=== PATIENT | female | born 1990 | race Hispanic/Latino ===

== ENCOUNTER 2016-12-13 14:49 | Inpatient (IN) | payer MEDICAID, OTHER ==
[2016-12-13] MEDS ORDERED: ePHEDrine SULFATE IV PRN ×2 (15:09→18:07)
[2016-12-13] MEDS ORDERED: LACTATED RINGERS 1,000 ML ONE (15:12)
[2016-12-13 15:26] LABS: Basophils % (Auto) 0.4 % (0.0-1.8); Hematocrit 35.6 % (30.3-42.9); Hemoglobin 12.3 gm/dl (10.1-14.3); Mean Corpuscular HGB Conc 34 % (30-34); Mean Corpuscular Hemoglobin 33 pg (28-32); Mean Corpuscular Volume 96 fl (79-97); Platelet Count 146 K/mm3 (140-440); Red Blood Count 3.73 M/mm3 (3.65-5.03); Red Cell Distribution Width 12.2 % (13.2-15.2); White Blood Count 9.6 K/mm3 (4.5-11.0)
[2016-12-13 15:42] LABS: Alanine Aminotransferase 10 units/L (7-56); Albumin 3.3 g/dL (3.9-5); Albumin/Globulin Ratio 1.2 %; Anion Gap 18 mmol/L; Blood Urea Nitrogen 9 mg/dL (7-17); Calcium 8.1 mg/dL (8.4-10.2); Carbon Dioxide 19 mmol/L (22-30); Chloride 105.5 mmol/L (98-107); Glucose 81 mg/dL (65-100); Potassium 4.3 mmol/L (3.6-5.0); Sodium 138 mmol/L (137-145)
[2016-12-13 15:59] LABS: Alkaline Phosphatase 2213 units/L (35-129)
[2016-12-13] MEDS ORDERED: PITOCin/NS 20 UNIT/1000ML DRIP 20 UNITS/1,000 ML BAG IV SCH (16:00)
[2016-12-13] MEDS ORDERED: XYLOCAINE 2% INFILTRATI ONE (16:00)
[2016-12-13] MEDS ORDERED: LACTATED RINGERS 1,000 ML IV SCH (16:00)
[2016-12-13] MEDS ORDERED: PFIZERPEN 5 MIL.UNITS in NACL 0.9% 50 ML IV ONE (16:00)
--- NOTE | 2016-12-13 16:01 | History and Physical Report ---
History of Present Illness Date of examination: 12/13/16 Date of admission: 12/13/16 14:49 Chief complaint: Leaking of clear fluid from vagina since 2:00 PM today; contractions History of present illness: 26 year old presents to L&D at 34 weeks, 6 days gestation. Patient reports she began leaking clear watery fluid from vagina since approximately 2: 00 PM today. Patient denies vaginal bleeding. She reports regular contractions every 3-5 minutes for the past few hours. [facility] History of + HSV 2 serology; on Valtrex for suppression; patient denies outbreaks or prodromal symptoms. Past History Past Medical History: other (Obesity, history of preeclampsia with a previous ) Past Surgical History: no surgical history [facility] History: abnormal PAP smear Social history: other (Previous smoker and marijuana user (none for past 5 months); currently in [facility]) - Obstetrical History Expected Date of Delivery: 01/18/17 Actual Gestation: 34 Week(s) 6 Day(s) : 3 Para: 2 Medications and Allergies Allergies Allergy/AdvReac Type Severity Reaction Status Date / Time Sulfa (Sulfonamide Allergy Mild Rash Verified 01/23/13 22:28 Antibiotics) Home Medications Medication Instructions Recorded Confirmed Last Taken Type Cephalexin [Keflex] 500 mg PO QID #28 capsule 03/03/13 04/10/15 Unknown Rx Gentamicin 0.3% Ophth Soln 2 drops OP QID #1 bottle 03/03/13 04/10/15 Unknown Rx Nitrofurantoin [place]/M-Cryst 100 mg PO Q12HR #20 capsule 05/13/14 04/10/15 Unknown Rx [Macrobid] ALBUTEROL Inhaler [ProAir HFA 2 puff IH QID PRN #1 inhalation 04/02/15 04/10/15 Unknown Rx Inhaler] Lidocain2.5%/Prilocai2.5% [Emla] 5 gm TP ONCE #1 tube 04/11/15 Unknown Rx Active Meds: Active Medications Lactated Ringer's (Lactated Ringers) 1,000 mls @ 125 mls/hr IV DIRECT BLANCA Oxytocin/Sodium Chloride (Pitocin/Ns 20 Unit/1000ml Drip) 20 units in 1,000 mls @ 125 mls/hr IV DIRECT BLANCA Penicillin G Potassium 5 mil. (units/ Sodium Chloride) 50 mls @ 100 mls/hr IV ONCE ONE PRN Reason: Protocol Stop: 12/13/16 16:29 Lidocaine (Xylocaine 2%) 20 ml INFILTRATI ONCE ONE Stop: 12/13/16 16:01 Penicillin G Potassium (Pfizerpen) 2.5 mil.units IV Q4H BLANCA PRN Reason: Protocol Review of Systems Cardiovascular: no edema, no lightheadedness, no shortness of breath Gastrointestinal: no abdominal pain, no nausea, no vomiting Genitourinary: no dysuria Neurological: no headaches, no loss of vision Psychiatric: sadness/tearfullness - Vital Signs Vital signs: Vital Signs Pulse BP 67 142/83 12/13/16 14:50 12/13/16 14:50 Temp Pulse Resp BP Pulse Ox 67 142/83 12/13/16 14:50 12/13/16 14:50 - Physical Exam Breasts: Positive: deferred Cardiovascular: Regular rate Lungs: Positive: Clear to auscultation Abdomen: Positive: normal appearance, soft Genitourinary (Female): Positive: normal external genitalia (No lesions noted on careful examination under bright light). Negative: perineal/vulvar lesions Vagina: Positive: other (+ pooling of amniotic fluid noted; cervix 4/90/-1) Results Result Diagrams: 12/13/16 15:14 12/13/16 15:14 Abnormal lab results 12/13/16 12/13/16 Range/Units 15:14 15:14 MCH 33 H (28-32) pg RDW 12.2 L (13.2-15.2) % Seg Neutrophils % 79.3 H (40.0-70.0) % Carbon Dioxide 19 L (22-30) mmol/L Creatinine 0.5 L (0.7-1.2) mg/dL Calcium 8.1 L (8.4-10.2) mg/dL Total Protein 6.0 L (6.3-8.2) g/dL Albumin 3.3 L (3.9-5) g/dL All other labs normal. Fern test positive; nitrazine test positive. GBS test sent. Assessment and Plan A: at 34 weeks, 6 days gestation with spontaneous rupture of membranes. No records available (possible GDM; NICU notified today by CNM). GBS unknown status. Labor. HSV 2 serology positive with no history of outbreaks and no current outbreak or prodromal symptoms and patient is on Valtrex suppression. P: Admit. Continuous EFM. Epidural if desires. GBS prophylaxis. Expect . NICU and Dr. Escalante to be present for delivery.
[2016-12-13] MEDS ORDERED: ePHEDrine SULFATE ONE (17:30)
[2016-12-13] MEDS ORDERED: VALTREX PO ONE (17:30)
--- NOTE | 2016-12-13 17:33 | Event Note ---
Date: 12/13/16 Labs show markedly elevated alk phos. Patient denies any history of liver disease. She reports she has been taking Tylenol 4 regular strenth tabs per day for an unknown duration. Patient denies pruritis, abdominal pain, nausea, or any other symptoms. She recently completed a course of Augmentin for a dental abscess. Otherwise is only taking vitamins, Colace, and Valtrex. Will consult with regarding this lab result; additional lab orders have been placed.
[2016-12-13] MEDS ORDERED: fentaNYL-BUPIV 2 MCG/ML-0.125% 200 MCG/100 ML BAG EPIDURAL ONE (17:39)
[2016-12-13] MEDS ORDERED: NARCAN 2 MG/2 ML IV PRN (18:07)
--- NOTE | 2016-12-13 18:09 | Anesthesia Consultation ---
Anesthesia Consult and Med Hx Date of service: 12/13/16 - Airway Anesthetic Teeth Evaluation: Good ROM Head & Neck: Adequate Mental/Hyoid Distance: Adequate Mallampati Class: Class II Intubation Access Assessment: Probably Good - Pulmonary Exam CTA: Yes - Cardiac Exam Cardiac Exam: RRR - Pre-Operative Health Status ASA Pre-Surgery Classification: ASA2 Proposed Anesthetic Plan: Epidural, Spinal - Pulmonary Hx Smoking: Yes (quit 5 months ago) Hx Asthma: No COPD: No Hx Pneumonia: No - Cardiovascular System Hx Hypertension: No - Central Nervous System Hx Seizures: No Hx Psychiatric Problems: No - Endocrine Hx Renal Disease: No Hx End Stage Renal Disease: No Hx Hypothyroidism: No Hx Hyperthyroidism: No - Hematic Hx Anemia: No Hx Sickle Cell Disease: No - Other Systems Hx Alcohol Use: No - Additional Comments Anesthesia Medical History Comments: +IUP AT 34.6 WKS
[2016-12-13 18:12] LABS: Hemoglobin 12.3 gm/dl (10.1-14.3); Mean Corpuscular HGB Conc 34 % (30-34); Mean Corpuscular Hemoglobin 33 pg (28-32); Mean Corpuscular Volume 95 fl (79-97); Platelet Count 142 K/mm3 (140-440); Red Blood Count 3.78 M/mm3 (3.65-5.03); White Blood Count 12.9 K/mm3 (4.5-11.0)
[2016-12-13] MEDS ORDERED: fentaNYL-BUPIV 2 MCG/ML-0.125% 200 MCG/100 ML BAG EPIDURAL SCH (19:00)
[2016-12-13] MEDS ORDERED: PFIZERPEN IV SCH (20:00)
[2016-12-13] MEDS ORDERED: PFIZERPEN 2.5 MIL.UNITS in NACL 0.9% 50 ML IV SCH (20:00)
--- NOTE | 2016-12-13 22:22 | Procedure Note ---
OB Delivery Note - Vaginal Delivery position: OA Intrapartum events: labor-<37 weeks Delivery induction: none Delivery monitor: external FHT Route of delivery: Delivery placenta: spontaneous Delivery cord: 3 umbilical vessels Episiotomy: none Delivery laceration: none Anesthesia: epidural Delivery comments: Spontaneous vaginal delivery of liveborn female infant on 12/13/16 at 18:38 weighing 4 lbs. 7 oz. with apgars of 8/9. Epidural anesthesia. Intact perineum. 3 vessel umbilical cord. NICU team present for delivery. Spontaneous cry and respirations. Spontaneous delivery of intact placenta and membranes by acrney mechanism. EBL 300 mL. Mother and baby stable.
[2016-12-13] MEDS: MOTRIN PO PRN (22:32)
--- NOTE | 2016-12-13 23:14 | Event Note ---
Hepatitis screen negative. Spoke with patient about elevated alkaline phosphatase level. Advised patient that we will repeat this test in AM to confirm, especially since she is now delivered. Advised patient that if test result is still high, she will need to see MD and that she will need follow up to determine cause of the elevation. I consulted with MD regarding elevated alkaline phosphatase earlier today. Patient voiced understanding of the above instructions.
[2016-12-13 23:56] LABS: Urine Drugs of Abuse Note Disclamer
[2016-12-14] MEDS: MOTRIN PO PRN ×2 (05:42→15:34)
[2016-12-14 06:55] LABS: Hematocrit 26.7 % (30.3-42.9); Hemoglobin 8.7 gm/dl (10.1-14.3); Mean Corpuscular HGB Conc 33 % (30-34); Mean Corpuscular Hemoglobin 29 pg (28-32); Mean Corpuscular Volume 88 fl (79-97); Platelet Count 259 K/mm3 (140-440); Red Blood Count 3.02 M/mm3 (3.65-5.03); Red Cell Distribution Width 14.4 % (13.2-15.2); White Blood Count 12.9 K/mm3 (4.5-11.0)
[2016-12-14] MEDS ORDERED: COLACE PO SCH (10:00)
[2016-12-14] MEDS ORDERED: FEOSOL PO SCH (10:00)
--- NOTE | 2016-12-14 10:53 | Progress Note ---
Subjective Date of service: 12/14/16 Interval history: 1st day after normal vaginal delivery Patient is in the bed, comfortable. Pain is well controlled with pain meds. Ambulated well, no residual neurological deficit. No anesthesia complications Objective - Constitutional Vitals: Vital Signs - 12hr 12/14/16 12/14/16 12/14/16 00:00 04:00 09:02 Temperature 98.6 F 98.6 F 98.8 F Pulse Rate 72 72 88 Respiratory 16 16 16 Rate Blood Pressure 102/81 132/52 109/69 - Labs CBC & Chem 7: 12/14/16 Unknown 12/13/16 15:14 Labs: Abnormal lab results 12/13/16 12/13/16 12/13/16 Range/Units 15:14 15:14 17:34 WBC 12.9 H (4.5-11.0) K/mm3 RBC (3.65-5.03) M/mm3 Hgb (10.1-14.3) gm/dl Hct (30.3-42.9) % MCH 33 H 33 H (28-32) pg RDW 12.2 L 12.0 L (13.2-15.2) % Seg Neutrophils % 79.3 H (40.0-70.0) % Carbon Dioxide 19 L (22-30) mmol/L Creatinine 0.5 L (0.7-1.2) mg/dL Calcium 8.1 L (8.4-10.2) mg/dL Alkaline Phosphatase 2213 H (35-129) units/L Total Protein 6.0 L (6.3-8.2) g/dL Albumin 3.3 L (3.9-5) g/dL 12/14/16 12/14/16 Range/Units Unknown Unknown WBC 12.9 H (4.5-11.0) K/mm3 RBC 3.02 L (3.65-5.03) M/mm3 Hgb 8.7 L D (10.1-14.3) gm/dl Hct 26.7 L D (30.3-42.9) % MCH (28-32) pg RDW (13.2-15.2) % Seg Neutrophils % (40.0-70.0) % Carbon Dioxide (22-30) mmol/L Creatinine (0.7-1.2) mg/dL Calcium (8.4-10.2) mg/dL Alkaline Phosphatase 1522 H (35-129) units/L Total Protein (6.3-8.2) g/dL Albumin (3.9-5) g/dL
--- NOTE | 2016-12-14 11:31 | Progress Note ---
Assessment and Plan A: PP day #1 Asymptomatic Anemia Elevated ALK Saroj Chandra. Assisted Inmate P:Follow Routine PP Orders Infed 100mg IM x 1 dose Continue PO FESO4 ALK decreased from 2213 to 1522 D/C to Saroj Pending Sale To [facility] in the AM Subjective - Subjective Date of service: 12/14/16 Patient reports: appetite normal, voiding normally, pain well controlled, flatus , ambulating normally [place]: in NICU, bottle feeding Objective - Vital Signs Latest vital signs: Vital Signs Temp Pulse Resp BP Pulse Ox 12/14/16 09:02 98.8 F 88 16 109/69 12/14/16 04:00 98.6 F 72 16 132/52 12/14/16 00:00 98.6 F 72 16 102/81 12/13/16 22:32 20 12/13/16 20:25 98.6 F 74 16 129/87 12/13/16 19:52 96.7 F L 66 12 121/74 99 12/13/16 19:50 67 121/74 12/13/16 19:40 59 L 115/73 12/13/16 19:35 61 106/63 12/13/16 19:20 65 113/63 12/13/16 19:05 84 120/77 12/13/16 18:50 88 125/82 12/13/16 18:35 96 H 134/85 12/13/16 18:34 88 80 L 12/13/16 18:33 68 122/75 12/13/16 18:31 76 133/71 12/13/16 18:29 71 100 12/13/16 18:28 70 129/85 12/13/16 18:26 66 123/82 12/13/16 18:24 66 122/81 98 12/13/16 18:23 69 119/80 12/13/16 18:21 67 124/77 12/13/16 18:19 73 98 12/13/16 18:18 69 127/85 12/13/16 18:16 77 125/80 12/13/16 18:14 85 124/83 98 12/13/16 18:12 65 118/79 12/13/16 18:10 70 117/80 12/13/16 18:09 67 98 12/13/16 18:08 71 120/77 12/13/16 18:06 71 118/74 12/13/16 18:04 78 121/76 98 12/13/16 18:03 65 121/78 12/13/16 17:59 59 L 125/74 98 12/13/16 17:54 57 L 99 12/13/16 17:53 80 143/81 12/13/16 17:49 62 99 12/13/16 17:44 64 100 12/13/16 16:26 62 132/85 12/13/16 16:25 98.3 F 67 18 132/85 12/13/16 14:50 67 142/83 Intake and Output 12/13/16 12/14/16 12/14/16 22:59 06:59 14:59 Intake Total 650 300 Output Total 600 Balance 50 300 Intake: IV 100 PITOCin/NS 20 UNIT/1000ML 100 DRIP 20 units In 1,000 ml @ 125 mls/hr IV DIRECT BLANCA Rx#:[id number] Oral 250 Intake, Free Water 300 300 Output: Urine 600 Void 600 Other: Total, Intake Amount 250 Total, Output Amount 600 # Voids Void 1 Weight 70.76 kg Estimated Blood Loss 300 - Exam Breasts: Present: normal Cardiovascular: Present: Regular rate Lungs: Present: Clear to auscultation, Normal air movement Abdomen: Present: normal appearance, soft, normal bowel sounds Uterus: Present: normal, firm, fundal height below umbilicus Extremities: Present: normal - Labs Labs: Abnormal lab results 12/13/16 12/13/16 12/13/16 Range/Units 15:14 15:14 17:34 WBC 12.9 H (4.5-11.0) K/mm3 RBC (3.65-5.03) M/mm3 Hgb (10.1-14.3) gm/dl Hct (30.3-42.9) % MCH 33 H 33 H (28-32) pg RDW 12.2 L 12.0 L (13.2-15.2) % Seg Neutrophils % 79.3 H (40.0-70.0) % Carbon Dioxide 19 L (22-30) mmol/L Creatinine 0.5 L (0.7-1.2) mg/dL Calcium 8.1 L (8.4-10.2) mg/dL Alkaline Phosphatase 2213 H (35-129) units/L Total Protein 6.0 L (6.3-8.2) g/dL Albumin 3.3 L (3.9-5) g/dL 12/14/16 12/14/16 Range/Units Unknown Unknown WBC 12.9 H (4.5-11.0) K/mm3 RBC 3.02 L (3.65-5.03) M/mm3 Hgb 8.7 L D (10.1-14.3) gm/dl Hct 26.7 L D (30.3-42.9) % MCH (28-32) pg RDW (13.2-15.2) % Seg Neutrophils % (40.0-70.0) % Carbon Dioxide (22-30) mmol/L Creatinine (0.7-1.2) mg/dL Calcium (8.4-10.2) mg/dL Alkaline Phosphatase 1522 H (35-129) units/L Total Protein (6.3-8.2) g/dL Albumin (3.9-5) g/dL
--- NOTE | 2016-12-14 11:33 | Discharge Summary ---
Providers - Providers Date of Admission: 12/13/16 14:49 Date of discharge: 12/15/16 Attending physician: SARAH HUGGINS MD Primary care physician: [facility] Hospitalization Reason for admission: rupture of membranes Delivery: Episiotomy: none Laceration: none Other procedures: none complications: none Discharge diagnosis: delivery Condition at discharge: Good Disposition: [id number] ANOTHER TYPE HLTHCARE Plan - Provider Discharge Summary Additional instructions: [] Smoking cessation referral if applicable(refer to patient education folder for contact #) [] Refer to [facility] Booklet Call your doctor immediately for: * Fever > 100.5 * Heavy vaginal bleeding ( >1 pad per hour) * Severe persistent headache * Shortness of breath * Reddened, hot, painful area to leg or breast * Drainage or odor from incision. * Keep incision clean and dry at all times and follow doctor's instructions regarding bathing/showering - Follow up plan Follow up: PRIMARY CAREMD [Primary Care Provider] - 7 Days
[2016-12-14] MEDS ORDERED: INFED IM ONE (12:30)
[2016-12-14 17:23] VITALS: BP 108/54
== END 2016-12-14 17:15 | disposition short-term general hospital (02) | DRG 775 ==
LOC: EEVIPCON 14:49 → LD 14:49 → OB 20:53
PROVIDERS: ADMIT Obstetrics & Gynecology; ATTEND Obstetrics & Gynecology
PROC: 10E0XZZ Delivery of Products of Conception, External Approach (ICD-10-PCS; principal; 2016-12-13)
PROC: 3E0S3CZ (ICD-10-PCS; 2016-12-13)
PROC: 00HU33Z Insertion of Infusion Device into Spinal Canal, Percutaneous Approach (ICD-10-PCS; 2016-12-13)
DX: O60.14X0 Preterm labor third trimester with preterm delivery third trimester, not applicable or unspecified (principal); O99.214 Obesity complicating childbirth; E66.9 Obesity, unspecified; O90.81 Anemia of the puerperium; D64.9 Anemia, unspecified; Z3A.34 34 weeks gestation of pregnancy; Z37.0 Single live birth; Z88.2 Allergy status to sulfonamides
CPT/HCPCS: 36415; 80053; 80307; 82962; 84075; 85014; 85018; 85025; 85027; 86592; 86706; 86803; 86850; 86900; 86901; 87116; J1750; J2540; J2590; J7120

== ENCOUNTER 2018-06-30 18:11 | Inpatient (IN) | payer MEDICAID ==
[2018-06-30] MEDS ORDERED: LACTATED RINGERS 1,000 ML ONE (18:42)
[2018-06-30] MEDS ORDERED: NACL 0.9% IR ONE (18:45)
[2018-06-30] MEDS ORDERED: WATER FOR IRRIG STERILE IR ONE (18:45)
[2018-06-30] MEDS ORDERED: PITOCin/NS 20 UNIT/1000ML DRIP 20,000 MILLIUNITS/1,000 ML BAG IV ONE ×2 (18:53→20:52)
[2018-06-30] MEDS ORDERED: LACTATED RINGERS 1,000 ML IV SCH (19:00)
[2018-06-30] MEDS ORDERED: NACL 0.9% 500 ML 500 ML IV NR (19:01)
[2018-06-30] MEDS ORDERED: ANCEF ONE (19:18)
[2018-06-30] MEDS ORDERED: DIPRIVAN 10 MG/ML IV ONE (19:18)
[2018-06-30] MEDS ORDERED: ZOFRAN ONE (19:18)
[2018-06-30] MEDS ORDERED: QUELICIN ONE (19:18)
[2018-06-30] MEDS ORDERED: DILAUDID ONE (19:19)
[2018-06-30] MEDS ORDERED: ZEMURON IV ONE (19:20)
[2018-06-30] MEDS ORDERED: BLOXIVERZ ONE (19:28)
[2018-06-30] MEDS ORDERED: ROBINUL ONE (19:28)
[2018-06-30 19:31] LABS: Basophils % (Auto) 0.8 % (0.0-1.8); Eosinophils % (Auto) 1.5 % (0.0-4.3); Hematocrit 35.1 % (30.3-42.9); Hemoglobin 12.1 gm/dl (10.1-14.3); Lymphocytes # (Auto) 0.8 K/mm3 (1.2-5.4); Lymphocytes % (Auto) 25.8 % (13.4-35.0); Mean Corpuscular HGB Conc 35 % (30-34); Mean Corpuscular Volume 97 fl (79-97); Monocytes % (Auto) 1.5 % (0.0-7.3); Platelet Count 197 K/mm3 (140-440); Red Blood Count 3.63 M/mm3 (3.65-5.03); Red Cell Distribution Width 12.9 % (13.2-15.2)
[2018-06-30] MEDS ORDERED: LACTATED RINGERS 2,000 ML ONE (19:38)
[2018-06-30] MEDS ORDERED: SUBLIMAZE ONE (19:40)
--- NOTE | 2018-06-30 20:01 | History and Physical Report ---
History of Present Illness Date of examination: 06/30/18 Date of admission: 06/30/18 18:41 Chief complaint: ROM, vaginal bleeding, pain History of present illness: This is a 28 yo female who presented by EMS for ROM. Received called from Charlotte AREVALO @625p stating patient with heavy vaginal bleeding. Arrived to triage 6 at 638p, multiple clots in bed, no fht's on strip, US machine at bedside, scan by me revealed FHT's extremely slow, breech, emergency C/S ordered. While having IV started patient gave history of walking, then she sat down and coughed, she thought she urinated on herself, her called EMS, she started bleeding once arrive to triage. EDC Confirmation: 09/04/2018 Gestational Age: 20 4/7 weeks Past History : 4 Term Births: 2 Premature Births: 1 Living Children: 3 Para: 3 Mult. Births: 0 Prev : 0 Prev. attempt? 0 Aborta: 0 Elect. Ab: 0 Spont. Ab: 0 Ectopics: 0 # 1 Delivery date: 11/26/2012 Weeks Gestation: 38+4 Delivery type: Vaginal Anesthesia type: epidural Delivery location: [facility] Sex: female weight: 5.19 Comments: meconium; Pre-E at 37 wga # 2 Delivery date: 04/10/2015 Weeks Gestation: 37+6 Delivery type: Vaginal Hours of labor: 1 Anesthesia type: none Delivery location: [facility] Infant Sex: male weight: 5.63 Comments: intrauterine growth restriction, pre-eclampsia/eclampsia Nurse delivery Past Medical History: Reviewed history from 07/08/2012 and no changes required: Negative Past Medical History Past Surgical History: Reviewed history from 10/12/2014 and no changes required: negative Past Medical History Abnormal PAP: negative VARSHA Exposure: negative Infertility: negative Uterine Anomaly: negative Uterine Surgery (not C/S): negative Other Gynecologic Problems: negative Social Hx: Patient is single +smoker no e/d Infection History Hx of STD: none HIV Risk Eval: low risk Personal hx. of genital herpes: no Partner hx. of genital herpes: yes Varicella/Chicken Pox Status: Immunized TB Risk: no Infection History Comments: Hx of HSV 2. Genetic History Congenital Heart Defect: Mom: no Dad: no [place] Disease: Mom: no Dad: no Thalassemia Mom: no Dad: no Neural Tube Defect Mom: no Dad: no Down's Syndrome Mom: no Dad: no Noah-Sachs Mom: no Dad: no Sickle Cell Disease/Trait Mom: no Dad: no Hemophilia Mom: no Dad: no Muscular Dystrophy Mom: no Dad: no Cystic Fibrosis Mom: no Dad: no [place] Chorea Mom: no Dad: no Mental Retardation Mom: no Dad: no Fragile X Mom: no Dad: no Other Genetic/Chromosomal Disorder Mom: no Dad: no Child w/other defect Mom: no Dad: yes Comments: "FOCs sister's children with disorders" Enviromental Exposures Xray Exposure: no Medication, drug, or alcohol use since LMP: no Chemical/Other Exposure: no Exposure to Cat Liter: no Hx of Parvovirus (Fifth Disease): no Occupational Exposure to Children: none Active Medications (reviewed today): PNV () Current Allergies (reviewed today): * SULFA (Critical) Past History - Obstetrical History Expected Date of Delivery: 09/04/18 Actual Gestation: 30 Week(s) 4 Day(s) : 3 Medications and Allergies Allergies Allergy/AdvReac Type Severity Reaction Status Date / Time Sulfa (Sulfonamide Allergy Mild Rash Verified 01/23/13 22:28 Antibiotics) Home Medications Medication Instructions Recorded Confirmed Last Taken Type Cephalexin [Keflex] 500 mg PO QID #28 capsule 03/03/13 12/13/16 Unknown Rx Gentamicin 0.3% Ophth Soln 2 drops OP QID #1 bottle 03/03/13 12/13/16 Unknown Rx Nitrofurantoin [place]/M-Cryst 100 mg PO Q12HR #20 capsule 05/13/14 12/13/16 Unknown Rx [Macrobid] ALBUTEROL Inhaler (OR & NICU) 2 puff IH QID PRN #1 inhalation 04/02/15 12/13/16 Unknown Rx [ProAir HFA Inhaler] Lidocain2.5%/Prilocai2.5% [Emla] 5 gm TP ONCE #1 tube 04/11/15 12/13/16 Unknown Rx 21/Iron Fu/Folic Acid 1 each PO DAILY #30 tablet 04/06/18 Unknown Rx [ Complete Caplet] Active Meds: Active Medications Lactated Ringer's (Lactated Ringers) 1,000 mls @ 125 mls/hr IV DIRECT BLANCA Sodium Chloride (Nacl 0.9% 500 Ml) 500 mls @ 0 mls/hr IV ONCE NR Stop: 07/01/18 05:00 - Vital Signs Vital signs: Vital Signs Pulse BP 85 125/78 06/30/18 18:26 06/30/18 18:26 Temp Pulse Resp BP Pulse Ox 85 125/78 06/30/18 18:26 06/30/18 18:26 - Physical Exam Lungs: Positive: Normal air movement Genitourinary (Female): Positive: normal external genitalia, normal perenium, other (large clot at introitus, pad with large amount of blood and clots. ) - Obstetrical FHR: category 3 Results Result Diagrams: 06/30/18 18:40 Abnormal lab results 06/30/18 06/30/18 Range/Units 18:40 18:40 WBC 3.2 L (4.5-11.0) K/mm3 RBC 3.63 L (3.65-5.03) M/mm3 MCH 33 H (28-32) pg MCHC 35 H (30-34) % RDW 12.9 L (13.2-15.2) % Lymph # 0.8 L (1.2-5.4) K/mm3 Seg Neutrophils % 70.4 H (40.0-70.0) % Crossmatch See Detail All other labs normal. Assessment and Plan - Patient Problems (1) 30 weeks gestation of Current Visit: Yes Status: Acute (2) Placental abruption Current Visit: Yes Status: Acute Qualifiers: Trimester: third trimester Qualified Code(s): O45.93 - Premature separation of placenta, unspecified, third trimester (3) Breech presentation Current Visit: Yes Status: Acute Qualifiers: Fetus number: single or unspecified fetus Qualified Code(s): O32.1XX0 - Maternal care for breech presentation, not applicable or unspecified
[2018-06-30] MEDS ORDERED: PHENERGAN PO PRN ×2 (20:09→20:10)
[2018-06-30] MEDS ORDERED: NARCAN 0.4 MG/1 ML IV PRN ×5 (20:09→21:57)
[2018-06-30] MEDS ORDERED: ZOFRAN IV PRN ×2 (20:09→20:10)
[2018-06-30] MEDS ORDERED: PHENERGAN PR PRN ×3 (20:09→21:57)
--- NOTE | 2018-06-30 20:09 | Anesthesia Day of Surgery ---
Anesthesia Day of Surgery - Day of Surgery Patient Examined: Yes Patient H&P Reviewed: Yes Patient is NPO: Yes Beta Blockers: No Cardiac Clearance: No Pulmonary Clearance: No Jovon's Test: N/A
[2018-06-30] MEDS ORDERED: DILAUDID IV PRN (20:10)
--- NOTE | 2018-06-30 20:15 | Anesthesia Consultation ---
Anesthesia Consult and Med Hx - Airway Anesthetic Teeth Evaluation: Poor, Chipped, Caps ROM Head & Neck: Adequate Mental/Hyoid Distance: Adequate Mallampati Class: Class II Intubation Access Assessment: Probably Good - Pulmonary Exam CTA: Yes - Pre-Operative Health Status ASA Pre-Surgery Classification: ASA4, Emergency Proposed Anesthetic Plan: General - Pulmonary Hx Smoking: Yes (quit 5 months ago) Hx Asthma: No Hx Respiratory Symptoms: No SOB: No COPD: No Home Oxygen Therapy: No Hx Pneumonia: No Hx Sleep Apnea: No - Cardiovascular System Hx Hypertension: No Hx Coronary Artery Disease: No Hx Heart Attack/AMI: No Hx Angina: No Hx Percutaneous Transluminal Coronary Angioplasty (PTCA): No Hx Cardia Arrhythmia: No Hx Pacemaker: No Hx Internal Defibrillator: No Hx Valvular Heart Disease: No Hx Heart Murmur: No Hx Peripheral Vascular Disease: No - Central Nervous System Hx Neuromuscular Disorder: No Hx Seizures: No CVA: No Hx Back Pain: No Hx Psychiatric Problems: No - Gastrointestinal Hx Ulcer: No Hx Gastroesophageal Reflux Disease: No - Endocrine Hx Renal Disease: No Hx End Stage Renal Disease: No Hx Cirrhosis: No Hx Liver Disease: No Hx Insulin Dependent Diabetes: No Hx Non-Insulin Dependent Diabetes: No Hx Thyroid Disease: No Hx Hypothyroidism: No Hx Hyperthyroidism: No - Hematic Hx Anemia: No Hx Sickle Cell Disease: No - Other Systems Hx Alcohol Use: No Hx Substance Use: No Hx Cancer: No Hx Obesity: No
--- NOTE | 2018-06-30 20:16 | Post Anesthesia Evaluation ---
- Post Anesthesia Evaluation Patient Participated: Yes Airway Patent: Yes Stable Respiratory Function: Yes Nausea/Vomiting: No Temp > 96.8F: Yes Pain Manageable: Yes Adequeate Hydration: Yes Anesthesia Complications: No Block Receding Appropriately: Not Applicable Patient on Ventilator: No
[2018-06-30] MEDS ORDERED: SODIUM CHLORIDE FLUSH SYRINGE 10 ML IV NR ×4 (21:00→22:00)
[2018-06-30] MEDS ORDERED: BENADRYL IV PRN (21:42)
[2018-06-30] MEDS ORDERED: TUCKS PAD TP PRN ×2 (21:42→21:57)
[2018-06-30] MEDS ORDERED: REGLAN IV PRN (21:42)
[2018-06-30] MEDS ORDERED: BENADRYL PO PRN (21:42)
[2018-06-30] MEDS ORDERED: REGLAN PO PRN (21:42)
[2018-06-30] MEDS ORDERED: LANSINOH TP PRN ×2 (21:42→21:57)
[2018-06-30] MEDS ORDERED: MORPHINE IV PRN (21:57)
[2018-06-30] MEDS ORDERED: MILK OF MAGNESIA PO PRN (21:57)
[2018-06-30] MEDS ORDERED: MYLICON PO PRN (21:57)
[2018-06-30] MEDS ORDERED: PITOCin/NS 20 UNIT/1000ML DRIP 20 UNITS/1,000 ML BAG IV SCH (22:00)
[2018-06-30] MEDS ORDERED: DILAUDID PCA 6MG/30ML IV SCH (22:00)
[2018-06-30 22:33] LABS: INR 1.09 (0.87-1.13)
[2018-06-30 22:36] LABS: Alanine Aminotransferase 8 units/L (7-56); Uric Acid 4.4 mg/dL (3.5-7.6)
--- NOTE | 2018-06-30 22:51 | Operative Report ---
Operative Report Operative Report: Date: 06/30/2018 Preoperative diagnosis: 1. Intrauterine at 30 weeks and 4 days 2. Severe vaginal bleeding 3. Premature rupture of membranes 4. Breech presentation Postoperative diagnosis: 1. Intrauterine at 30 weeks and 4 days 2. Severe vaginal bleeding 3. Premature rupture of membranes 4. Breech presentation Procedure: Low uterine transverse incision for delivery with vertical midline extension to the fundus of the uterus. Parient will require repeat for subsequent pregnancies Surgeon: Destiny Mathur MD Gin Clerk: Tatum Castro Anesthesia: Gen. endotracheal anesthesia Anesthesiologist: [] Estimated blood loss: 400 mL. She had approximately 500 mL's of blood and clots noted on the Chux pad and from the vagina. Urine out: [] mL Findings: Live born female . Weight 3 lbs. 1 oz. Apgars 7 at 1 minute and 8 at 5 minutes. Uterus grossly normal, tubes grossly normal left fallopian tube, there was no evidence of the distal ampullary or distal fimbriated end of the right fallopian tube however there is an approximately 2 cm mass involving the isthmic portion of the tube ~3cm from the cornua, ovaries grossly normal. Procedure: Patient was taken to the OR emergently and placed on the OR table in supine position. Gen. anesthesia was induced. Due to the emergent situation she had a quick Betadine scrub of the abdomen and she was prepped and draped in the usual sterile fashion. Abbreviated Timeout was performed by me identifying the patient by name and procedure. A Pfannenstiel incision was made and extended to the fascia which was incised and extended in the lateral directions. The overlying fascia was sharply dissected away from the underlying rectus muscles in the superior and inferior directions. The midline was entered bluntly. The vesicouterine fold was incised and with blunt dissection the bladder flap was created. A transverse incision was made in the lower uterine segment and extended in superiolateral direction with finger fractionation. Upon immediate entry into the uterus dark blood and placenta was noted. No fluid was noted. The was delivered from complete breech pos ition. There was significant difficulty delivering the right arm that was positioned above and the head was rotated to right. In order to better access the fundus of the uterus the skin incision along the fascia was extended laterally. Then the right rectus muscle was also cut edge. Access to the uterus. The decision was made to extend extending the incision vertical midline direction to better access and deliver the arm in the infant's head. Cord was doubly clamped and cut. The infant was given to /resuscitation team present. The placenta was manually extracted. Order given to send the placenta to pathology. The uterus was then exteriorized and cleared of any further products of conception or placental tissue. The incisions were reapproximated using 0 Vicryl in a running interlocking stitch. A vertical incision was reinforced using 0 Vicryl in a running interlocking stitch thereby reapproximating the serosal layer. Once hemostasis was noted, the uterus was allowed back into the pelvic cavity. The pelvis was irrigated with warm normal saline. Again hemostasis was noted . Surgicel applied for further hemostasis. Interceed was then placed to prevent adhesions. Then attention was turned to the rectus muscles. The rectus muscle incision was reapproximated using 0 Vicryl in a [id number] fashion. The rectus muscles reapproximated using 0 Vicryl in a simple interrupted stitch x one. Once hemostasis was noted, the fascia was reapproximated using 0 Vicryl running stitch fashion. Once hemostasis was noted skin incision was reapproximated using surgical stainless steel suzanne. Counts were correct 3. Patient tolerated procedure well state recovery room in stable condition.
[2018-06-30 22:54] LABS: Hematocrit 26.3 % (30.3-42.9)
[2018-06-30 23:00] LABS: Hemoglobin 8.7 gm/dl (10.1-14.3)
[2018-06-30 23:52] LABS: Bilirubin,Urine NEG (Negative); Blood,Urine NEG (Negative); Color,Urine Yellow (Yellow); Mucus,Urine FEW /HPF; Protein,Urine <15 mg/dL mg/dL (Negative)
[2018-07-01 00:03] LABS: Benzodiazepines Screen,Urine PRESUMPTIVE NEGATIVE; Cocaine Screen,Urine PRESUMPTIVE NEGATIVE; Methadone Screen,Urine PRESUMPTIVE NEGATIVE; Opiate Screen,Urine PRESUMPTIVE NEGATIVE
[2018-07-01 00:22] LABS: Amphetamine Screen,Urine PRESUMPTIVE POSITIVE; Cannabinoid Screen,Urine PRESUMPTIVE POSITIVE
--- NOTE | 2018-07-01 01:51 | Progress Note ---
Assessment and Plan UO ~80mL/hr per Eliceo Fox RN, no uterine bleeding, vs noted Anticipate she may require [facility] transfusion - Patient Problems (1) Delivery by emergency section Current Visit: Yes Status: Acute (2) Placental abruption Current Visit: Yes Status: Acute Qualifiers: Trimester: third trimester Qualified Code(s): O45.93 - Premature separation of placenta, unspecified, third trimester (3) Breech presentation Current Visit: Yes Status: Acute Qualifiers: Fetus number: single or unspecified fetus Qualified Code(s): O32.1XX0 - Maternal care for breech presentation, not applicable or unspecified (4) 30 weeks gestation of Current Visit: Yes Status: Acute (5) Anemia Current Visit: Yes Status: Acute Qualifiers: Other causes of anemia: acute posthemorrhagic Plan to address problem: will start FeSo4 Subjective - Subjective Date of service: 07/01/18 Principal diagnosis: s/p emergency c/s, abruption Interval history: Resting in bed, easily aroused, states she's hungry, no other complaints [place]: in NICU Objective - Vital Signs Latest vital signs: Vital Signs Temp Pulse Resp BP BP Pulse Ox 07/01/18 01:14 97.8 F 103 H 18 97/66 97 07/01/18 00:56 101 H 93/60 97 06/30/18 21:41 98.6 F 18 99/65 06/30/18 20:50 98.2 F 98 H 20 119/72 98 06/30/18 20:45 102 H 19 122/70 97 06/30/18 20:30 101 H 19 114/67 96 06/30/18 20:15 91 H 20 121/67 98 06/30/18 20:00 120 H 15 119/65 94 06/30/18 19:54 115 H 21 122/63 87 06/30/18 19:50 98.4 F 111 H 22 119/62 92 06/30/18 18:26 85 125/78 Intake and Output 06/30/18 06/30/18 07/01/18 14:59 22:59 06:59 Intake Total 2700 Output Total 650 Balance 2049 Intake: IV 2700 Output: Urine 650 Uretheral (Barrios) 200 Other: Weight 60.328 kg Estimated Blood Loss 400 Patient Weight 07/01/18 06:59 Weight 60.328 kg - Exam Lungs: Present: Normal air movement Abdomen: Present: soft, distention Incision: Present: dressed - Labs Labs: Abnormal lab results 06/30/18 06/30/18 06/30/18 Range/Units 18:40 18:40 21:50 WBC 3.2 L (4.5-11.0) K/mm3 RBC 3.63 L (3.65-5.03) M/mm3 Hgb (10.1-14.3) gm/dl Hct (30.3-42.9) % MCH 33 H (28-32) pg MCHC 35 H (30-34) % RDW 12.9 L (13.2-15.2) % Lymph # 0.8 L (1.2-5.4) K/mm3 Seg Neutrophils % 70.4 H (40.0-70.0) % Creatinine 0.4 L (0.7-1.2) mg/dL Crossmatch See Detail 06/30/18 Range/Units 22:32 WBC (4.5-11.0) K/mm3 RBC (3.65-5.03) M/mm3 Hgb 8.7 L D (10.1-14.3) gm/dl Hct 26.3 L D (30.3-42.9) % MCH (28-32) pg MCHC (30-34) % RDW (13.2-15.2) % Lymph # (1.2-5.4) K/mm3 Seg Neutrophils % (40.0-70.0) % Creatinine (0.7-1.2) mg/dL Crossmatch
[2018-07-01] MEDS: TORADOL IV SCH ×4 (03:54→16:48)
[2018-07-01] MEDS: ANCEF/NS 1 GM/50 ML 1 GM/50 ML BAG IV SCH ×2 (03:55→12:00)
[2018-07-01] MEDS ORDERED: BOOSTRIX IM ONE (06:00)
[2018-07-01] MEDS: MORPHINE IV PRN (06:40)
--- NOTE | 2018-07-01 09:13 | Progress Note ---
Assessment and Plan Patient resting in bed eating pizza, advised she should wait until she is passing gas to eat regular diet. Dressing D&I, lochiabdelrahman hanks, VSSAF, next H&H ordered for 09. pt is currently asymptomatic for anemia (postop H&H 8.7/26.3.) Pt informed of + UDS for thc and amphetamines. She states she has been using "sudafed." pt also admits to having issues with her mother - she lives with her mother, her mother also has custody of her other children. Advised the baby will be testing and case management will be notified. All questions addressed. continue postop pathway. - Patient Problems (1) Delivery by emergency section Current Visit: Yes Status: Acute (2) Placental abruption Current Visit: Yes Status: Acute Qualifiers: Trimester: third trimester Qualified Code(s): O45.93 - Premature separation of placenta, unspecified, third trimester Subjective - Subjective Date of service: 07/01/18 Principal diagnosis: postop day #1;s/p emergency c/s, abruption, + UDS Patient reports: appetite normal, pain well controlled, no dizzy ambulation, no flatus, no nauseated : in NICU Objective - Vital Signs Latest vital signs: Vital Signs Temp Pulse Resp BP BP Pulse Ox 07/01/18 04:00 98.0 F 97 H 20 96/63 07/01/18 01:14 97.8 F 103 H 18 97/66 97 07/01/18 00:56 101 H 93/60 97 06/30/18 21:41 98.6 F 18 99/65 06/30/18 20:50 98.2 F 98 H 20 119/72 98 06/30/18 20:45 102 H 19 122/70 97 06/30/18 20:30 101 H 19 114/67 96 06/30/18 20:15 91 H 20 121/67 98 06/30/18 20:00 120 H 15 119/65 94 06/30/18 19:54 115 H 21 122/63 87 06/30/18 19:50 98.4 F 111 H 22 119/62 92 06/30/18 18:26 85 125/78 Intake and Output 06/30/18 07/01/18 07/01/18 23:59 07:59 15:59 Intake Total 2700 75 Output Total 750 450 Balance 1950 -375 Intake: IV 2700 Oral 75 Output: Urine 750 450 Indwelling Catheter 100 450 Uretheral (Barrios) 200 Other: Total, Intake Amount 75 Total, Output Amount 100 150 Weight 60.328 kg Estimated Blood Loss 400 - Exam Breasts: Present: normal Cardiovascular: Present: Regular rate Lungs: Present: Clear to auscultation, Normal air movement Abdomen: Present: normal appearance, soft Uterus: Present: normal, firm, fundal height at umbilicus Extremities: Present: normal Incision: Present: normal, dry, dressed - Labs Labs: Abnormal lab results 06/30/18 06/30/18 06/30/18 Range/Units 18:40 18:40 21:50 WBC 3.2 L (4.5-11.0) K/mm3 RBC 3.63 L (3.65-5.03) M/mm3 Hgb (10.1-14.3) gm/dl Hct (30.3-42.9) % MCH 33 H (28-32) pg MCHC 35 H (30-34) % RDW 12.9 L (13.2-15.2) % Lymph # 0.8 L (1.2-5.4) K/mm3 Seg Neutrophils % 70.4 H (40.0-70.0) % Creatinine 0.4 L (0.7-1.2) mg/dL Crossmatch See Detail 06/30/18 Range/Units 22:32 WBC (4.5-11.0) K/mm3 RBC (3.65-5.03) M/mm3 Hgb 8.7 L D (10.1-14.3) gm/dl Hct 26.3 L D (30.3-42.9) % MCH (28-32) pg MCHC (30-34) % RDW (13.2-15.2) % Lymph # (1.2-5.4) K/mm3 Seg Neutrophils % (40.0-70.0) % Creatinine (0.7-1.2) mg/dL Crossmatch
[2018-07-01 10:44] LABS: Hemoglobin 7.6 gm/dl (10.1-14.3)
[2018-07-01] MEDS ORDERED: AFLURIA QUAD 2018-2019 SYRINGE IM ONE (12:00)
[2018-07-01] MEDS: PERCOCET 5/325 PO PRN (21:30)
--- NOTE | 2018-07-01 22:11 | Event Note ---
Date: 07/01/18 Called by RN as pt c/o having sob and dizziness after returning from NICU to see the baby. I have ordered stat H/h and pending results will give two units of PRBCs as pt now symptomatic.
[2018-07-01] MEDS ORDERED: NACL 0.9% 500 ML 500 ML IV ONE (22:21)
--- NOTE | 2018-07-01 22:46 | Event Note ---
Date: 07/01/18 Provider at bedside. Pt is easily aroused and oriented to time, place,and person. She does c/o having some shoulder pain and of having some wheezing. None noted on exam. Pt states that she did not have sx all day until returning form the nursery. Pt advised of plan for transfusion. Encouraged taking deep breaths as she did have general anesthesia. She expressed understanding and all questions were addressed and answered. Will also obtain a CXR at this time rot r/o pulmonary cause for sob pt c/o at this time.
[2018-07-01 23:13] LABS: Hematocrit 20.7 % (30.3-42.9); Hemoglobin 7.2 gm/dl (10.1-14.3)
--- NOTE | 2018-07-01 23:32 | XRay Report ---
FINAL REPORT EXAM: XR CHEST ROUTINE 2V HISTORY: shortness of breath post op TECHNIQUE: Two view chest PA and lateral PRIORS: None. FINDINGS: Cardiac and mediastinal contours are unremarkable. No focal pulmonary infiltrate is identified. No pleural fluid collection seen. Pulmonary vasculature is unremarkable. There is free air under the di aphragm. History recent surgery this is likely postoperative in nature IMPRESSION: Free air under the diaphragm which is likely postoperative in nature No acute pulmonary findings
[2018-07-02] MEDS: PERCOCET 5/325 PO PRN ×2 (05:35→22:31)
--- NOTE | 2018-07-02 05:44 | Event Note ---
Date: 07/02/18 CXR just shows air under diaphragm that is c/w post op changes but no acute pulmonary process. H/H prior to transfusion was 7.2/. With getting 1st unit of blood BP has returned to base line. Will xfuse second unit and hold third. Repeat h/h after second unit is completed.
[2018-07-02] MEDS: IBUPROFEN PO PRN ×2 (07:21→16:50)
[2018-07-02] MEDS ORDERED: TYLENOL PO ONE (08:04)
[2018-07-02 10:29] LABS: Hematocrit 28.1 % (30.3-42.9); Hemoglobin 9.6 gm/dl (10.1-14.3)
--- NOTE | 2018-07-02 10:37 | Progress Note ---
Assessment and Plan patient laying in bed with sweat pants and a dirty gown. She has been going outside to smoke but refuses to use ISS for nurses or be assisted to shower. Discussed need for patient to use ISS 5 times per hour while awake and advance activity. Advised patient she is at risk for developing pneumonia. Patient with temp after completion of transfusion - Tylenol given and will continue to monitor. post transfusion H&H 9.6/28.1 (increased from 7.2/20.7). b/p normotensive, maternal HR elevated 104-115 but seems to be trending down after transfusion. Case management visited patient yesterday. Dr. Mathur aware and will see patient. - Patient Problems (1) Delivery by emergency section Current Visit: Yes Status: Acute (2) Placental abruption Current Visit: Yes Status: Acute Qualifiers: Trimester: third trimester Qualified Code(s): O45.93 - Premature separation of placenta, unspecified, third trimester (3) Anemia Current Visit: Yes Status: Acute Qualifiers: Other causes of anemia: acute posthemorrhagic Subjective - Subjective Date of service: 07/02/18 Principal diagnosis: postop day #1;s/p emergency c/s, abruption, + UDS, transfusion Patient reports: appetite normal, voiding normally, dizzy ambulation (prior to transfusion), pain well controlled, flatus, ambulating normally, no nauseated : in NICU Objective - Vital Signs Latest vital signs: Vital Signs Temp Pulse Resp BP BP Pulse Ox 07/02/18 09:36 99.9 F H 104 H 20 108/64 91 07/02/18 08:36 20 07/02/18 07:54 100.7 F H 105 H 24 120/65 89 07/02/18 07:21 18 07/02/18 06:20 98.9 F 107 H 20 128/83 95 07/02/18 06:00 99.0 F 115 H 17 134/84 93 07/02/18 05:30 98.5 F 105 H 17 129/92 97 07/02/18 05:00 99.0 F 113 H 18 133/87 94 07/02/18 04:30 98.3 F 88 17 113/75 95 07/02/18 04:15 98.4 F 108 H 18 119/76 95 07/02/18 03:15 98.2 F 100 H 17 115/75 96 07/02/18 03:00 98.1 F 102 H 18 120/78 97 07/02/18 02:30 98.1 F 70 18 117/70 95 07/02/18 02:00 97.8 F 98 H 17 112/69 95 07/02/18 01:30 97.7 F 81 18 96/65 99 07/02/18 01:00 98.1 F 87 17 98/57 95 07/02/18 00:45 97.8 F 79 17 102/56 94 07/01/18 22:10 93 H 15 93/51 92 07/01/18 21:30 18 07/01/18 16:00 98.2 F 95 H 20 98/50 Intake and Output 07/01/18 07/02/18 07/02/18 23:59 07:59 15:59 Intake Total 680 500 Output Total 1500 400 Balance -820 100 Intake: Oral 320 Intake, Free Water 360 Blood Product 500 Leukoreduced Red Blood 250 Cells Unit [id number] Leukoreduced Red Blood 250 Cells Unit [id number] Output: Urine 1500 400 Void 1500 400 Other: Total, Intake Amount 320 Total, Output Amount 600 400 # Voids Void 1 - Exam Breasts: Present: normal Cardiovascular: Present: Regular rate Lungs: Present: Clear to auscultation, Normal air movement Abdomen: Present: normal appearance, soft Uterus: Present: normal, firm, fundal height at umbilicus Extremities: Present: normal Deep Tendon Reflex Grade: Normal +2 Incision: Present: normal, dry, intact (suzanne present) - Labs Labs: Abnormal lab results 06/30/18 07/01/18 07/01/18 Range/Units 18:40 09:54 22:16 Hgb 7.6 L 7.2 L (10.1-14.3) gm/dl Hct 22.0 L 20.7 L (30.3-42.9) % Crossmatch See Detail 07/02/18 Range/Units 10:15 Hgb 9.6 L (10.1-14.3) gm/dl Hct 28.1 L D (30.3-42.9) % Crossmatch
--- NOTE | 2018-07-02 12:30 | Progress Note ---
Assessment and Plan - Patient Problems (1) Delivery by emergency section Current Visit: Yes Status: Acute (2) Breech presentation Current Visit: Yes Status: Acute Qualifiers: Fetus number: single or unspecified fetus Qualified Code(s): O32.1XX0 - Maternal care for breech presentation, not applicable or unspecified (3) Placental abruption Current Visit: Yes Status: Acute Qualifiers: Trimester: third trimester Qualified Code(s): O45.93 - Premature separation of placenta, unspecified, third trimester (4) Anemia Current Visit: Yes Status: Acute Qualifiers: Other causes of anemia: acute posthemorrhagic Plan to address problem: s/p transfusion of 2u PRBCs for symptomatic anemia (5) 30 weeks gestation of Current Visit: Yes Status: Acute (6) Amphetamine abuse Current Visit: Yes Status: Acute Plan to address problem: NICU and case management aware (7) Marijuana abuse Current Visit: Yes Status: Acute (8) Tobacco smoking complicating Current Visit: Yes Status: Acute Plan to address problem: Patient instructed to not go outside to smoke, agrees to nicotine patch (9) Wheezing Current Visit: Yes Status: Acute Plan to address problem: Respiratory evaluation Subjective - Subjective Date of service: 07/02/18 Principal diagnosis: postop day #2; s/p emergency c/s, abruption, + UDS, transfusion Interval history: Resting in bed, alert and appropriately responsive. No complaints Patient reports: appetite normal, voiding normally, pain well controlled, ambulating normally (Only ambulates to go outside to smoke and to see baby ), no dizzy ambulation, no flatus (However ate pizza last pm according to the patient), no bowel movement : in NICU Objective - Vital Signs Latest vital signs: Vital Signs Temp Pulse Resp BP BP Pulse Ox 07/02/18 09:36 99.9 F H 104 H 20 108/64 91 07/02/18 08:36 20 07/02/18 07:54 100.7 F H 105 H 24 120/65 89 07/02/18 07:21 18 07/02/18 06:20 98.9 F 107 H 20 128/83 95 07/02/18 06:00 99.0 F 115 H 17 134/84 93 07/02/18 05:30 98.5 F 105 H 17 129/92 97 07/02/18 05:00 99.0 F 113 H 18 133/87 94 07/02/18 04:30 98.3 F 88 17 113/75 95 07/02/18 04:15 98.4 F 108 H 18 119/76 95 07/02/18 03:15 98.2 F 100 H 17 115/75 96 07/02/18 03:00 98.1 F 102 H 18 120/78 97 07/02/18 02:30 98.1 F 70 18 117/70 95 07/02/18 02:00 97.8 F 98 H 17 112/69 95 07/02/18 01:30 97.7 F 81 18 96/65 99 07/02/18 01:00 98.1 F 87 17 98/57 95 07/02/18 00:45 97.8 F 79 17 102/56 94 07/01/18 22:10 93 H 15 93/51 92 07/01/18 21:30 18 07/01/18 16:00 98.2 F 95 H 20 98/50 Intake and Output 07/01/18 07/02/18 07/02/18 22:59 06:59 14:59 Intake Total 560 860 Output Total 2000 400 Balance -1440 860 -400 Intake: Oral 560 Intake, Free Water 360 Blood Product 500 Leukoreduced Red Blood 250 Cells Unit [id number] Leukoreduced Red Blood 250 Cells Unit [id number] Output: Urine 2000 400 Void 2000 400 Other: Total, Intake Amount 320 Total, Output Amount 600 400 # Voids Void 1 - Exam Breasts: Present: normal Cardiovascular: Present: Regular rate Lungs: Present: Other (rales, wheezes, she denies h/o respiratory disease) Abdomen: Present: normal appearance, soft, normal bowel sounds Uterus: Present: fundal height below umbilicus. Absent: tenderness Extremities: Present: normal Incision: Present: normal, dry, intact - Labs Labs: Abnormal lab results 06/30/18 07/01/18 07/02/18 Range/Units 18:40 22:16 10:15 Hgb 7.2 L 9.6 L (10.1-14.3) gm/dl Hct 20.7 L 28.1 L D (30.3-42.9) % Crossmatch See Detail
[2018-07-02] MEDS ORDERED: PROVENTIL IH ONE (13:02)
[2018-07-02] MEDS ORDERED: LASIX IV ONE (14:23)
[2018-07-02] MEDS: PROVENTIL IH SCH ×3 (16:37→23:29)
[2018-07-02] MEDS: HABITROL TD SCH (18:06)
[2018-07-03] MEDS: PROVENTIL IH SCH ×4 (04:11→20:46)
--- NOTE | 2018-07-03 08:07 | Progress Note ---
Assessment and Plan Patient sleeping on window seat while s/o sleeps in bed "he's hard to wake up." Advised pt needs to be in the bed and not s/o. Instructed use ISS 5 times per hour while awake. afebrile, b/p normotensive, maternal tachycardia. no s/s anemia. Continue RT tx, Continue current postop pathway, d/c suzanne tomorrow morning. anticipate d/c home tomorrow. - Patient Problems (1) Delivery by emergency section Current Visit: Yes Status: Acute (2) Placental abruption Current Visit: Yes Status: Acute Qualifiers: Trimester: third trimester Qualified Code(s): O45.93 - Premature separation of placenta, unspecified, third trimester (3) Anemia Current Visit: Yes Status: Acute Qualifiers: Other causes of anemia: acute posthemorrhagic (4) Wheezing on auscultation Current Visit: Yes Status: Acute (5) Cough productive of clear sputum Current Visit: Yes Status: Acute Subjective - Subjective Date of service: 07/03/18 Principal diagnosis: postop day #3; s/p emergency c/s, abruption, + UDS, transfusion Patient reports: appetite normal, voiding normally, pain well controlled, flatus, ambulating normally, no dizzy ambulation, no nauseated [place]: in NICU Objective - Vital Signs Latest vital signs: Vital Signs Temp Pulse Pulse Resp Resp BP BP 07/03/18 04:18 108 H 14 07/03/18 04:11 108 H 14 07/03/18 00:22 98.4 F 109 H 20 107/66 07/02/18 23:38 104 H 14 07/02/18 23:31 109 H 14 07/02/18 22:31 18 07/02/18 20:30 118 H 16 07/02/18 20:21 117 H 16 07/02/18 16:46 104 H 14 07/02/18 16:38 105 H 16 07/02/18 15:49 98.3 F 102 H 24 101/63 07/02/18 13:17 108 H 18 07/02/18 13:05 110 H 20 07/02/18 11:58 98.7 F 93 H 20 130/72 07/02/18 09:36 99.9 F H 104 H 20 108/64 07/02/18 08:36 20 Pulse Ox 07/03/18 04:18 07/03/18 04:11 07/03/18 00:22 97 07/02/18 23:38 07/02/18 23:31 07/02/18 22:31 07/02/18 20:30 07/02/18 20:21 07/02/18 16:46 07/02/18 16:38 07/02/18 15:49 94 07/02/18 13:17 07/02/18 13:05 07/02/18 11:58 91 07/02/18 09:36 91 07/02/18 08:36 Intake and Output 07/02/18 07/03/18 07/03/18 23:59 07:59 15:59 Intake Total 560 240 Output Total 2400 Balance -1840 240 Intake: Oral 200 Intake, Free Water 360 240 Output: Urine 2400 Void 2400 Other: Total, Intake Amount 200 Total, Output Amount 800 # Voids Void 1 - Exam Breasts: Present: normal Cardiovascular: Present: Regular rate Lungs: Present: Other (wheezing noted, pt coughing up sputum and receiving breathing treatments. smokes 1 pk/d. currently using nicotine patch) Abdomen: Present: normal appearance, soft Vulva: both: normal Uterus: Present: normal, firm, fundal height below umbilicus Extremities: Present: normal Deep Tendon Reflex Grade: Normal +2 Incision: Present: normal, dry, intact (suzanne present) - Labs Labs: Abnormal lab results 07/02/18 Range/Units 10:15 Hgb 9.6 L (10.1-14.3) gm/dl Hct 28.1 L D (30.3-42.9) %
[2018-07-03] MEDS ORDERED: DULCOLAX PR PRN (08:18)
[2018-07-03] MEDS: PERCOCET 5/325 PO PRN ×2 (09:29→14:43)
[2018-07-03] MEDS: IBUPROFEN PO PRN (14:42)
[2018-07-03] MEDS ORDERED: XYLOCAINE 1% MPF 5 mL INFILTRATI ONE (14:50)
[2018-07-03] MEDS ORDERED: NACL 0.9% 500 ML 500 ML IV SCH (15:00)
[2018-07-03] MEDS ORDERED: NACL 0.9% 1000 ML 1,000 ML ONE (15:00)
--- NOTE | 2018-07-03 15:23 | Progress Note ---
Assessment and Plan Concerned for possible pneumonia/sepsis. No obvious obstetrical/ infection. Dr. Tomlinson consulted. - Patient Problems (1) Delivery by emergency section Current Visit: Yes Status: Acute (2) Breech presentation Current Visit: Yes Status: Acute Qualifiers: Fetus number: single or unspecified fetus Qualified Code(s): O32.1XX0 - Maternal care for breech presentation, not applicable or unspecified (3) Placental abruption Current Visit: Yes Status: Acute Qualifiers: Trimester: third trimester Qualified Code(s): O45.93 - Premature separation of placenta, unspecified, third trimester (4) Anemia Current Visit: Yes Status: Acute Qualifiers: Other causes of anemia: acute posthemorrhagic (5) 30 weeks gestation of Current Visit: Yes Status: Acute (6) Amphetamine abuse Current Visit: Yes Status: Acute (7) Marijuana abuse Current Visit: Yes Status: Acute (8) Tobacco smoking complicating Current Visit: Yes Status: Acute (9) Wheezing Current Visit: Yes Status: Acute Subjective - Subjective Date of service: 07/03/18 Principal diagnosis: postop day #3; s/p emergency c/s, abruption, + UDS, transfusion Interval history: RN states "She does not look good". Patient resting in bed, slight diaphoretic, tachypneic states she feels weak. Minimal bleeding. Patient reports: no dizzy ambulation, no flatus [place]: in NICU Objective - Vital Signs Latest vital signs: Vital Signs Temp Pulse Pulse Resp Resp BP BP 07/03/18 13:23 114 H 14 07/03/18 13:14 116 H 14 07/03/18 08:26 118 H 16 07/03/18 08:19 118 H 18 07/03/18 07:54 98.6 F 117 H 20 130/85 07/03/18 04:18 108 H 14 07/03/18 04:11 108 H 14 07/03/18 00:22 98.4 F 109 H 20 107/66 07/02/18 23:38 104 H 14 07/02/18 23:31 109 H 14 07/02/18 22:31 18 07/02/18 20:30 118 H 16 07/02/18 20:21 117 H 16 07/02/18 16:46 104 H 14 07/02/18 16:38 105 H 16 07/02/18 15:49 98.3 F 102 H 24 101/63 Pulse Ox 07/03/18 13:23 07/03/18 13:14 07/03/18 08:26 07/03/18 08:19 07/03/18 07:54 96 07/03/18 04:18 07/03/18 04:11 07/03/18 00:22 97 07/02/18 23:38 07/02/18 23:31 07/02/18 22:31 07/02/18 20:30 07/02/18 20:21 07/02/18 16:46 07/02/18 16:38 07/02/18 15:49 94 Intake and Output 07/03/18 07/03/18 07/03/18 06:59 14:59 22:59 Intake Total 240 600 Output Total 800 500 Balance -560 100 Intake: Oral 600 Intake, Free Water 240 Output: Urine 800 500 Void 800 500 Other: Total, Intake Amount 360 Total, Output Amount 800 500 # Voids Void 1 - Exam Breasts: Present: normal (pumping breast). Absent: skin changes, engorged Cardiovascular: Present: Other (tachycardia) Abdomen: Present: soft, normal bowel sounds Uterus: Present: fundal height below umbilicus Extremities: Present: edema (trace). Absent: tenderness Incision: Present: normal, dry, intact (no s/s infection)
[2018-07-03] MEDS ORDERED: VANCOMYCIN 1,250 MG in NACL 0.9% 500 ML 500 ML IV ONE (15:46)
[2018-07-03] MEDS ORDERED: PROAIR IH PRN (15:48)
--- NOTE | 2018-07-03 15:52 | History and Physical Report ---
History of Present Illness Date of admission: 06/30/18 18:41 Chief complaint: I just dont feel good, I feel sick History of present illness: 28 YO Female admitted at 30weeks Gestation for vaginal bleeding. Pt is POD #3 S/P LTCS for Vaginal Bleeding Secondary to Placental Abruption. Pt seen and evaluated by me in her room upon consultation by Dr. Mathur. Pt found to have fever to 102, Diaphoresis, Tachycardia, and is in moderate distress. Pt found to have relative hypotension with systolic blood pressure around 107, with previous systolic blood pressures around 130. Pt admitted to hospitalist service and transferred to [facility] and initiated on sepsis protocol. [employer] consulted. Pt is let hargic on exam. Pt acknowledges fever, shortness of breath, and "feeling crappy". Pt denies CP, Palpitations, NVD, Productive cough, skin rash, or recent known ill contacts or foreign travel. Informed [facility] charge nurse of transfer. Past History Past Medical History: No medical history, other (reviewed) Past Surgical History: Social history: single. denies: smoking, alcohol abuse, prescription drug abuse Family history: no significant family history (reviewed) Medications and Allergies Allergies Allergy/AdvReac Type Severity Reaction Status Date / Time Sulfa (Sulfonamide Allergy Mild Rash Verified 01/23/13 22:28 Antibiotics) Home Medications Medication Instructions Recorded Confirmed Last Taken Type Cephalexin [Keflex] 500 mg PO QID #28 capsule 03/03/13 12/13/16 Unknown Rx Gentamicin 0.3% Ophth Soln 2 drops OP QID #1 bottle 03/03/13 12/13/16 Unknown Rx Nitrofurantoin Yates/M-Cryst 100 mg PO Q12HR #20 capsule 05/13/14 12/13/16 Unknown Rx [Macrobid] ALBUTEROL Inhaler (OR & NICU) 2 puff IH QID PRN #1 inhalation 04/02/15 12/13/16 Unknown Rx [ProAir HFA Inhaler] Lidocain2.5%/Prilocai2.5% [Emla] 5 gm TP ONCE #1 tube 04/11/15 12/13/16 Unknown Rx 21/Iron Fu/Folic Acid 1 each PO DAILY #30 tablet 04/06/18 Unknown Rx [ Complete Caplet] Ibuprofen [Motrin 800 MG tab] 800 mg PO TID PRN #30 tablet 06/30/18 Unknown Rx oxyCODONE /ACETAMINOPHEN [Percocet 1 - 2 tab PO Q4HR PRN #30 tablet 06/30/18 Unknown Rx 5/325 mg] Active Meds: Active Medications Albuterol (Proventil) 2.5 mg IH Q4HRT BLANCA Last Admin: 07/03/18 13:14 Dose: 2.5 mg Documented by: Albuterol (Proair) 2 puff IH QID PRN PRN Reason: Shortness Of Breath Bisacodyl (Dulcolax) 10 mg MO QDAY PRN PRN Reason: Constipation Last Admin: 07/03/18 09:30 Dose: 10 mg Documented by: Diphenhydramine HCl (Benadryl) 25 mg IV Q4H PRN PRN Reason: Itching Diphenhydramine HCl (Benadryl) 25 mg PO Q4H PRN PRN Reason: Itching Hydromorphone/Sodium Chloride (Dilaudid Kitchen Hand 6mg/30ml) 0 mg IV DIRECT BLANCA; Protocol Dextrose/Lactated Ringer's (D5lr) 1,000 mls @ 125 mls/hr IV DIRECT BLANCA Oxytocin/Sodium Chloride (Pitocin/Ns 20 Unit/1000ml Drip) 20 units in 1,000 mls @ 250 mls/hr IV DIRECT BLANCA Ceftriaxone Sodium 500 mg/ (Sodium Chloride) 50 mls @ 100 mls/hr IV DAILY BLANCA; Protocol Sodium Chloride (Nacl 0.9% 500 Ml) 500 mls @ 50 mls/hr IV DIRECT BLANCA Ceftriaxone Sodium (Rocephin/Ns 2 Gm/100 Ml) 2 gm in 100 mls @ 200 mls/hr IV Q24HR BLANCA; Protocol Vancomycin HCl 1,250 mg/ (Sodium Chloride) 525 mls @ 333 mls/hr IV ONCE ONE; Protocol Stop: 07/03/18 17:20 Ibuprofen (Motrin) 800 mg PO Q6H PRN PRN Reason: Pain, Mild (1-3) Last Admin: 07/03/18 14:42 Dose: 800 mg Documented by: Magnesium Hydroxide (Milk Of Magnesia) 30 ml PO QHS PRN PRN Reason: Constip Unrelieved By Senna Last Admin: 07/03/18 09:30 Dose: 30 ml Documented by: Metoclopramide HCl (Reglan) 10 mg IV Q6H PRN PRN Reason: N/V if NPO. Metoclopramide HCl (Reglan) 10 mg PO Q6H PRN PRN Reason: Nausea Miscellaneous Medication ( 21/Iron Fu/Folic Acid [ Complete Caplet]) 1 each PO DAILY BLANCA Morphine Sulfate (Morphine) 4 mg IV Q4H PRN PRN Reason: Pain , Severe (7-10) Last Admin: 07/01/18 06:40 Dose: 4 mg Documented by: Morphine Sulfate (Morphine) 2 mg IV Q4H PRN PRN Reason: Pain, Moderate (4-6) Multi-Ingredient Ointment (Lansinoh) 1 applic TP PRN PRN PRN Reason: dryness/cracking Naloxone HCl (Narcan 0.4 Mg/1 Ml) 0.1 mg IV Q2MIN PRN PRN Reason: Res Rate </= 8 or 02 SAT < 92% Nicotine (Habitrol) 14 mg TD QDAY BLANCA Last Admin: 07/02/18 18:06 Dose: 14 mg Documented by: Oxycodone/Acetaminophen (Percocet 5/325) 2 tab PO Q6H PRN PRN Reason: Pain, Moderate (4-6) Last Admin: 07/03/18 14:43 Dose: 1 tab Documented by: Promethazine HCl (Phenergan) 25 mg MO Q6H PRN PRN Reason: N/V IF NPO AND NO IV ACCESS Simethicone (Mylicon) 80 mg PO Q6H PRN PRN Reason: Gas pain Last Admin: 07/03/18 09:30 Dose: 80 mg Documented by: Sodium Chloride (Nacl 0.9% 1000 Ml) 1,810 ml 30 ml/kg (1810 ml) IV ONCE ONE Stop: 07/03/18 15:47 Witch Liliya/Glycerin (Tucks Pad) 1 each TP PRN PRN PRN Reason: Hemorrhoids/cleansing/soothing Review of Systems Constitutional: fever, chills, weakness, no weight loss, no weight gain Ears, nose, mouth and throat: no ear pain, no ear discharge, no tinnitis, no decreased hearing, no nose pain Breasts: no change in shape, no swelling, no mass Cardiovascular: shortness of breath, no chest pain, no orthopnea, no palpitations Respiratory: no cough, no cough with sputum, no excessive sputum, no hemoptysis Gastrointestinal: no abdominal pain, no nausea, no vomiting, no diarrhea Genitourinary Female: no pelvic pain, no flank pain, no menorrhagia, no dysuria, no urinary frequency, no urgency Rectal: no pain, no incontinence, no bleeding Musculoskeletal: no neck stiffness, no neck pain, no shooting arm pain, no arm numbness/tingling, no low back pain Integumentary: no rash, no pruritis, no redness, no sores, no wounds Neurological: no transient paralysis, no paralysis, no parathesias, no numbness, no tingling Psychiatric: no anxiety, no memory loss, no change in sleep habits, no sleep disturbances, no insomnia, no hypersomnia, no change in libido Endocrine: no cold intolerance, no heat intolerance, no polyphagia, no excessive thirst, no polydipsia, no polyuria Hematologic/Lymphatic: no easy bruising, no easy bleeding Allergic/Immunologic: no urticaria, no allergic rhinitis, no wheezing Exam - Constitutional Vitals: Temp Pulse Resp BP Pulse Ox 98.6 F 114 H 14 130/85 96 07/03/18 07:54 07/03/18 13:23 07/03/18 13:23 07/03/18 07:54 07/03/18 07:54 General appearance: Present: mild distress, other (diaphoretic, lethargic, ) - EENT Eyes: Present: PERRL ENT: hearing intact, clear oral mucosa - Neck Neck: Present: supple, normal ROM - Respiratory Respiratory: bilateral: diminished, rhonchi - Cardiovascular Rhythm: other (tachycardic, relative hypotension) Heart Sounds: Present: S1 & S2. Absent: rub, click - Extremities Extremities: pulses symmetrical, No edema Peripheral Pulses: abnormal (capillary refill greater than 3.5 seconds) - Abdominal General gastrointestinal: Present: soft, other (appropriately tender, Incision CDI, staple line intact, no wound breakdown/fluctuance/masses, no erythema, no bruising. ) Female genitourinary: Present: normal - Rectal Rectal Exam: normal rectal tone - Integumentary Integumentary: Present: clear, dry, clammy, decreased turgor - Musculoskeletal Musculoskeletal: generalized weakness - Psychiatric Psychiatric: appropriate mood/affect, intact judgment & insight, memory intact, other (lethargic) - Neurologic Neurologic: CNII-XII intact, moves all extremities Results - Labs CBC & Chem 7: 07/02/18 10:15 06/30/18 21:50 Assessment and Plan - Patient Problems (1) Sepsis Current Visit: Yes Status: Acute Qualifiers: Sepsis type: sepsis due to unspecified organism Qualified Code(s): A41.9 - Sepsis, unspecified organism Plan to address problem: Admit to IMCU/Hospitalist Service, Sepsis Protocol: IV antibiotic therapy, blood cultures, urinalysis, CTA Chest to evaluate for PE, d dimer, bnp, serial lactic acid, urinalysis, monitor uop q shift, IVF resuscitation, monitor bp q shift, remote telemetry. (2) Amphetamine abuse Current Visit: Yes Status: Acute Plan to address problem: supportive care, (3) Nicotine dependence Current Visit: Yes Status: Acute Qualifiers: Substance use status: in withdrawal Plan to address problem: smoking cessation counseling, supportive care, (4) DVT prophylaxis Current Visit: Yes Status: Acute Plan to address problem: SCD to BLE while in bed
[2018-07-03] MEDS: HABITROL TD SCH (16:25)
[2018-07-03] MEDS ORDERED: ROCEPHIN 500 MG in NACL 0.9% 50 ML IV SCH (16:30)
[2018-07-03] MEDS ORDERED: PROVENTIL IH PRN (17:15)
[2018-07-03 17:28] LABS: Bacteria,Urine 1+ /HPF (Negative); Bilirubin,Urine NEG (Negative); Blood,Urine MOD (Negative); Color,Urine Amber (Yellow); Mucus,Urine 3+ /HPF; Urobilinogen,Urine < 2.0 mg/dL (<2.0)
[2018-07-03 17:39] LABS: Amphetamine Screen,Urine PRESUMPTIVE NEGATIVE; Benzodiazepines Screen,Urine PRESUMPTIVE NEGATIVE; Cocaine Screen,Urine PRESUMPTIVE NEGATIVE; Methadone Screen,Urine PRESUMPTIVE NEGATIVE; Opiate Screen,Urine PRESUMPTIVE NEGATIVE
[2018-07-03 17:53] LABS: Cannabinoid Screen,Urine PRESUMPTIVE POSITIVE
[2018-07-03] MEDS ORDERED: NACL 0.9% 1000 ML IV ONE (18:00)
[2018-07-03] MEDS ORDERED: VANCOMYCIN 1,250 MG in NACL 0.9% 250ML 250 ML IV ONE (18:30)
[2018-07-03] MEDS: ROCEPHIN/NS 2 GM/100 ML 2 GM/100 ML BAG IV SCH (20:40)
[2018-07-04] MEDS: PROVENTIL IH SCH ×7 (02:02→21:28)
[2018-07-04] MEDS: PERCOCET 5/325 PO PRN ×2 (05:28→18:34)
[2018-07-04] MEDS ORDERED: FOLIC ACID PO SCH (10:00)
[2018-07-04] MEDS ORDERED: IRON FU PO SCH (10:00)
[2018-07-04] MEDS ORDERED: PRENATAL PO SCH (10:00)
[2018-07-04] MEDS: HABITROL TD SCH (10:06)
[2018-07-04] MEDS: ROCEPHIN/NS 2 GM/100 ML 2 GM/100 ML BAG IV SCH (10:06)
--- NOTE | 2018-07-04 13:12 | Progress Note ---
Assessment and Plan - Patient Problems (1) Amphetamine abuse Current Visit: Yes Status: Acute (2) Delivery by emergency section Current Visit: Yes Status: Acute Plan to address problem: Patient is doing well postoperatively to infection incision no clear signs of endometritis (3) Marijuana abuse Current Visit: Yes Status: Acute (4) Sepsis Current Visit: Yes Status: Acute Qualifiers: Sepsis type: sepsis due to unspecified organism Qualified Code(s): A41.9 - Sepsis, unspecified organism Plan to address problem: Continue tear and IMCU with management by hospitalist Subjective Date of service: 07/04/18 Patient Reports: Positive: no new complaints, feels better, still having pain, pain is less, tolerating a regular diet, voiding w/o difficulty, flatus. Negative: nausea (patient with MAXIMUM TEMPERATURE of 100.8 early a.m.), vomiting Objective Vital Signs - 12hr 07/04/18 07/04/18 07/04/18 01:11 01:21 01:31 Temperature Pulse Rate 114 H 113 H 114 H Pulse Rate [ Anterior Bilateral Throughout] Pulse Rate [ Bilateral Throughout] Pulse Rate [ From Monitor] Respiratory 22 22 21 Rate Respiratory Rate [Anterior Bilateral Throughout] Respiratory Rate [Bilateral Throughout] Blood Pressure 125/79 125/79 125/79 O2 Sat by Pulse 92 93 92 Oximetry 07/04/18 07/04/18 07/04/18 01:41 01:51 01:55 Temperature Pulse Rate 117 H 117 H Pulse Rate [ 117 H Anterior Bilateral Throughout] Pulse Rate [ Bilateral Throughout] Pulse Rate [ From Monitor] Respiratory 28 H 24 Rate Respiratory 28 H Rate [Anterior Bilateral Throughout] Respiratory Rate [Bilateral Throughout] Blood Pressure 125/79 125/79 O2 Sat by Pulse 85 92 Oximetry 07/04/18 07/04/18 07/04/18 02:00 02:05 02:11 Temperature Pulse Rate 118 H 119 H Pulse Rate [ 110 H Anterior Bilateral Throughout] Pulse Rate [ Bilateral Throughout] Pulse Rate [ From Monitor] Respiratory 27 H 25 H Rate Respiratory 20 Rate [Anterior Bilateral Throughout] Respiratory Rate [Bilateral Throughout] Blood Pressure 120/77 120/77 O2 Sat by Pulse 92 95 Oximetry 07/04/18 07/04/18 07/04/18 02:21 02:30 02:40 Temperature Pulse Rate 119 H 120 H 118 H Pulse Rate [ Anterior Bilateral Throughout] Pulse Rate [ Bilateral Throughout] Pulse Rate [ From Monitor] Respiratory 24 27 H 25 H Rate Respiratory Rate [Anterior Bilateral Throughout] Respiratory Rate [Bilateral Throughout] Blood Pressure 120/77 120/77 120/77 O2 Sat by Pulse 93 93 92 Oximetry 07/04/18 07/04/18 07/04/18 02:51 03:00 03:11 Temperature Pulse Rate 119 H 122 H 121 H Pulse Rate [ Anterior Bilateral Throughout] Pulse Rate [ Bilateral Throughout] Pulse Rate [ From Monitor] Respiratory H 26 H 26 H Rate Respiratory Rate [Anterior Bilateral Throughout] Respiratory Rate [Bilateral Throughout] Blood Pressure 120/77 121/84 121/84 O2 Sat by Pulse 93 92 93 Oximetry 07/04/18 07/04/18 07/04/18 03:21 03:31 03:41 Temperature Pulse Rate 119 H 119 H 115 H Pulse Rate [ Anterior Bilateral Throughout] Pulse Rate [ Bilateral Throughout] Pulse Rate [ From Monitor] Respiratory 27 H 26 H 24 Rate Respiratory Rate [Anterior Bilateral Throughout] Respiratory Rate [Bilateral Throughout] Blood Pressure 121/84 121/84 121/84 O2 Sat by Pulse 93 93 93 Oximetry 07/04/18 07/04/18 07/04/18 03:51 04:00 04:11 Temperature 100.8 F H Pulse Rate 126 H 120 H 127 H Pulse Rate [ Anterior Bilateral Throughout] Pulse Rate [ Bilateral Throughout] Pulse Rate [ From Monitor] Respiratory H 27 H 29 H Rate Respiratory Rate [Anterior Bilateral Throughout] Respiratory Rate [Bilateral Throughout] Blood Pressure 121/84 121/79 121/79 O2 Sat by Pulse 91 89 91 Oximetry 07/04/18 07/04/18 07/04/18 04:21 04:31 04:41 Temperature Pulse Rate 118 H 119 H 123 H Pulse Rate [ Anterior Bilateral Throughout] Pulse Rate [ Bilateral Throughout] Pulse Rate [ From Monitor] Respiratory 26 H 25 H 29 H Rate Respiratory Rate [Anterior Bilateral Throughout] Respiratory Rate [Bilateral Throughout] Blood Pressure 121/79 121/79 121/79 O2 Sat by Pulse 92 92 91 Oximetry 07/04/18 07/04/18 07/04/18 04:51 05:00 05:11 Temperature Pulse Rate 119 H 122 H 128 H Pulse Rate [ Anterior Bilateral Throughout] Pulse Rate [ Bilateral Throughout] Pulse Rate [ From Monitor] Respiratory 28 H 27 H 27 H Rate Respiratory Rate [Anterior Bilateral Throughout] Respiratory Rate [Bilateral Throughout] Blood Pressure 121/79 123/82 123/82 O2 Sat by Pulse 91 92 Oximetry 07/04/18 07/04/18 07/04/18 05:21 05:25 05:31 Temperature Pulse Rate 119 H 123 H Pulse Rate [ 110 H Anterior Bilateral Throughout] Pulse Rate [ Bilateral Throughout] Pulse Rate [ From Monitor] Respiratory 28 H 36 H Rate Respiratory 22 Rate [Anterior Bilateral Throughout] Respiratory Rate [Bilateral Throughout] Blood Pressure 123/82 123/82 O2 Sat by Pulse 92 93 Oximetry 07/04/18 07/04/18 07/04/18 05:38 05:41 05:51 Temperature Pulse Rate 113 H 132 H Pulse Rate [ 115 H Anterior Bilateral Throughout] Pulse Rate [ Bilateral Throughout] Pulse Rate [ From Monitor] Respiratory 28 H 39 H Rate Respiratory 20 Rate [Anterior Bilateral Throughout] Respiratory Rate [Bilateral Throughout] Blood Pressure 123/82 123/82 O2 Sat by Pulse 100 Oximetry 07/04/18 07/04/18 07/04/18 06:01 06:11 06:21 Temperature Pulse Rate 133 H 126 H 118 H Pulse Rate [ Anterior Bilateral Throughout] Pulse Rate [ Bilateral Throughout] Pulse Rate [ From Monitor] Respiratory 33 H 27 H 21 Rate Respiratory Rate [Anterior Bilateral Throughout] Respiratory Rate [Bilateral Throughout] Blood Pressure 123/82 123/82 123/82 O2 Sat by Pulse 92 89 Oximetry 07/04/18 07/04/18 07/04/18 06:31 06:41 06:51 Temperature Pulse Rate 118 H 114 H 117 H Pulse Rate [ Anterior Bilateral Throughout] Pulse Rate [ Bilateral Throughout] Pulse Rate [ From Monitor] Respiratory 19 18 18 Rate Respiratory Rate [Anterior Bilateral Throughout] Respiratory Rate [Bilateral Throughout] Blood Pressure 123/82 123/82 123/82 O2 Sat by Pulse 90 92 93 Oximetry 07/04/18 07/04/18 07/04/18 07:01 07:11 07:21 Temperature Pulse Rate 108 H 113 H 109 H Pulse Rate [ Anterior Bilateral Throughout] Pulse Rate [ Bilateral Throughout] Pulse Rate [ From Monitor] Respiratory 19 17 19 Rate Respiratory Rate [Anterior Bilateral Throughout] Respiratory Rate [Bilateral Throughout] Blood Pressure 123/82 123/82 123/82 O2 Sat by Pulse 90 91 94 Oximetry 07/04/18 07/04/18 07/04/18 07:31 07:41 07:51 Temperature Pulse Rate 118 H 106 H 128 H Pulse Rate [ Anterior Bilateral Throughout] Pulse Rate [ Bilateral Throughout] Pulse Rate [ From Monitor] Respiratory 23 21 23 Rate Respiratory Rate [Anterior Bilateral Throughout] Respiratory Rate [Bilateral Throughout] Blood Pressure 123/82 123/82 123/82 O2 Sat by Pulse 94 100 96 Oximetry 07/04/18 07/04/18 07/04/18 07:55 08:00 08:01 Temperature 98.8 F Pulse Rate 123 H Pulse Rate [ 90 Anterior Bilateral Throughout] Pulse Rate [ 86 Bilateral Throughout] Pulse Rate [ 97 H From Monitor] Respiratory 26 H Rate Respiratory 16 Rate [Anterior Bilateral Throughout] Respiratory 16 Rate [Bilateral Throughout] Blood Pressure 123/82 O2 Sat by Pulse 96 95 Oximetry 07/04/18 07/04/18 07/04/18 08:11 08:21 08:31 Temperature Pulse Rate 123 H 118 H 116 H Pulse Rate [ Anterior Bilateral Throughout] Pulse Rate [ Bilateral Throughout] Pulse Rate [ From Monitor] Respiratory 10 L 23 18 Rate Respiratory Rate [Anterior Bilateral Throughout] Respiratory Rate [Bilateral Throughout] Blood Pressure 123/82 123/82 123/82 O2 Sat by Pulse 95 96 95 Oximetry 07/04/18 07/04/18 07/04/18 08:41 08:51 09:01 Temperature Pulse Rate 123 H 105 H 103 H Pulse Rate [ Anterior Bilateral Throughout] Pulse Rate [ Bilateral Throughout] Pulse Rate [ From Monitor] Respiratory 26 H 17 20 Rate Respiratory Rate [Anterior Bilateral Throughout] Respiratory Rate [Bilateral Throughout] Blood Pressure 123/82 123/82 123/82 O2 Sat by Pulse 95 94 94 Oximetry 07/04/18 07/04/18 07/04/18 09:11 09:21 09:31 Temperature Pulse Rate 105 H 107 H 105 H Pulse Rate [ Anterior Bilateral Throughout] Pulse Rate [ Bilateral Throughout] Pulse Rate [ From Monitor] Respiratory 19 18 17 Rate Respiratory Rate [Anterior Bilateral Throughout] Respiratory Rate [Bilateral Throughout] Blood Pressure 123/82 123/82 123/82 O2 Sat by Pulse 93 93 93 Oximetry 07/04/18 07/04/18 07/04/18 09:41 09:51 10:01 Temperature Pulse Rate 101 H 102 H 105 H Pulse Rate [ Anterior Bilateral Throughout] Pulse Rate [ Bilateral Throughout] Pulse Rate [ From Monitor] Respiratory 18 15 15 Rate Respiratory Rate [Anterior Bilateral Throughout] Respiratory Rate [Bilateral Throughout] Blood Pressure 123/82 123/82 123/82 O2 Sat by Pulse 94 94 94 Oximetry 07/04/18 07/04/18 07/04/18 10:11 10:21 10:31 Temperature Pulse Rate 102 H 98 H 95 H Pulse Rate [ Anterior Bilateral Throughout] Pulse Rate [ Bilateral Throughout] Pulse Rate [ From Monitor] Respiratory 17 16 15 Rate Respiratory Rate [Anterior Bilateral Throughout] Respiratory Rate [Bilateral Throughout] Blood Pressure 99/62 99/62 99/62 O2 Sat by Pulse 96 95 94 Oximetry 07/04/18 07/04/18 07/04/18 10:41 11:37 12:00 Temperature 97.9 F Pulse Rate 96 H Pulse Rate [ 90 Anterior Bilateral Throughout] Pulse Rate [ 86 Bilateral Throughout] Pulse Rate [ From Monitor] Respiratory 17 Rate Respiratory 16 Rate [Anterior Bilateral Throughout] Respiratory 16 Rate [Bilateral Throughout] Blood Pressure 99/62 O2 Sat by Pulse 94 Oximetry - General physical appearance well developed, well nourished, no distress - Respiratory normal respiratory effort - Abdomen soft, tender (appropriately post operative), bowel sounds normal, surgical scars (suzanne intact no signs of infection) - Integumentary no rash - Labs 07/02/18 10:15 06/30/18 21:50
--- NOTE | 2018-07-04 18:50 | Cat Scan Report ---
FINAL REPORT EXAM: CT ANGIO CHEST HISTORY: dypsnea TECHNIQUE: High-resolution helical axial images were obtained of the chest during intravenous admini stration of iodinated contrast. Images are reconstructed in the sagittal and coronal planes. PRIORS: None. FINDINGS: There is no evidence of pulmonary embolism, the pulmonary arteries opacify normally. The heart and thoracic aorta appear normal. Interstitial markings are diffusely prominent throughout. There are patchy small to medium size bilat eral upper lobe airspace infiltrates. There is a large consolidative infiltrate in the left posterior lower lobe. There is right middle lobe and lingular subsegmental atelectasis. Images through upper abdomen show a moderate amount of free fluid in the left upper quadrant with ass ociated omental graying. There is a small amount of free peritoneal air anterior to the liver consist ent with recent surgery. The bones are unremarkable. IMPRESSION: 1. Findings are consistent with diffuse pneumonia with the greatest involvement in the left lower lob e 2. No evidence of acute PE 3. Moderate amount of free fluid in the left upper quadrant of the abdomen associated with omental gr aying. Correlation with surgical history is recommended.
[2018-07-05] MEDS: PERCOCET 5/325 PO PRN ×2 (04:00→13:54)
--- NOTE | 2018-07-05 07:52 | Progress Note ---
Assessment and Plan patient resting in bed, c/o coughing up clear sputum. pt states she has still not passed gas or had BM. She has been eating regular diet without problem (pizza pox on bedside table). Rico removed without difficulty- pt tolerated removal. Incision healing well. Encouraged patient to ambulate and use ISS as directed. Lochia scant, fundus firm. breast pump in room. s/o sleeping at bedside. - Patient Problems (1) Delivery by emergency section Current Visit: Yes Status: Acute (2) Placental abruption Current Visit: Yes Status: Acute Qualifiers: Trimester: third trimester Qualified Code(s): O45.93 - Premature separation of placenta, unspecified, third trimester (3) Anemia Current Visit: Yes Status: Acute Qualifiers: Other causes of anemia: acute posthemorrhagic Subjective - Subjective Date of service: 07/05/18 ([facility] note) Principal diagnosis: postop day #5; s/p emergency c/s, abruption, + UDS, transfusion, sepsis Patient reports: appetite normal, voiding normally, pain well controlled, ambulating normally, no dizzy ambulation, no flatus, no bowel movement, no nauseated [place]: in NICU Objective - Vital Signs Latest vital signs: Vital Signs Temp Pulse Pulse Pulse Pulse Resp Resp 07/05/18 04:31 118 H 26 H 07/05/18 04:21 121 H 25 H 07/05/18 04:11 118 H 25 H 07/05/18 04:08 100.5 F H 07/05/18 04:00 120 H 100 H 28 H 07/05/18 03:51 125 H 18 07/05/18 03:41 127 H 27 H 07/05/18 03:31 120 H 21 07/05/18 03:21 119 H 24 07/05/18 03:11 122 H 29 H 07/05/18 03:00 118 H 24 07/05/18 02:51 118 H 22 07/05/18 02:41 121 H 24 07/05/18 02:31 120 H 25 H 07/05/18 02:21 116 H 21 07/05/18 02:11 114 H 21 07/05/18 02:00 116 H 21 07/05/18 01:50 112 H 22 07/05/18 01:41 117 H 22 07/05/18 01:31 120 H 20 07/05/18 01:21 113 H 26 H 07/05/18 01:11 116 H 20 07/05/18 01:00 115 H 20 07/05/18 00:51 114 H 19 07/05/18 00:41 116 H 21 07/05/18 00:31 118 H 20 07/05/18 00:21 117 H 21 07/05/18 00:11 133 H 28 H 07/05/18 00:00 97.9 F 119 H 100 H 18 07/04/18 23:50 117 H 19 07/04/18 23:41 118 H 18 07/04/18 23:31 116 H 18 07/04/18 23:21 117 H 19 07/04/18 23:11 118 H 18 07/04/18 23:00 117 H 20 07/04/18 22:51 117 H 19 07/04/18 22:41 117 H 19 07/04/18 22:31 122 H 21 07/04/18 22:21 120 H 19 07/04/18 22:11 127 H 24 07/04/18 22:00 123 H 21 07/04/18 21:51 126 H 24 07/04/18 21:41 129 H 26 H 07/04/18 21:38 126 H 07/04/18 21:34 07/04/18 21:31 123 H 23 07/04/18 21:28 120 H 07/04/18 21:20 127 H 30 H 07/04/18 21:11 132 H 19 07/04/18 21:00 130 H 36 H 07/04/18 20:51 129 H 29 H 07/04/18 20:48 97.9 F 07/04/18 20:41 127 H 29 H 07/04/18 20:31 130 H 29 H 07/04/18 20:21 130 H 31 H 07/04/18 20:11 128 H 29 H 07/04/18 20:00 132 H 100 H 30 H 07/04/18 19:51 130 H 30 H 07/04/18 19:49 130 H 27 H 07/04/18 19:41 134 H 28 H 07/04/18 19:31 121 H 25 H 07/04/18 19:21 123 H 25 H 07/04/18 19:14 122 H 25 H 07/04/18 19:11 120 H 26 H 07/04/18 19:00 122 H 26 H 07/04/18 18:51 120 H 25 H 07/04/18 18:41 126 H 31 H 07/04/18 18:31 123 H 27 H 07/04/18 18:21 125 H 30 H 07/04/18 18:11 123 H 27 H 07/04/18 18:00 125 H 27 H 07/04/18 17:51 130 H 31 H 07/04/18 17:41 120 H 26 H 07/04/18 17:31 124 H 24 07/04/18 17:23 132 H 38 H 07/04/18 16:41 121 H 26 H 07/04/18 16:31 115 H 24 07/04/18 16:21 110 H 20 07/04/18 16:11 110 H 21 07/04/18 16:00 99.3 F 114 H 98 H 23 07/04/18 15:51 113 H 19 07/04/18 15:41 96 H 24 07/04/18 15:31 107 H 20 07/04/18 15:21 109 H 19 07/04/18 15:11 110 H 20 07/04/18 15:00 105 H 20 07/04/18 14:51 107 H 21 07/04/18 14:41 111 H 19 07/04/18 14:31 109 H 22 07/04/18 14:21 111 H 07/04/18 14:11 107 H 26 H 07/04/18 14:00 102 H 20 07/04/18 13:51 111 H 24 07/04/18 13:41 105 H 20 07/04/18 13:30 111 H 22 07/04/18 13:20 111 H 19 07/04/18 13:10 111 H 21 07/04/18 13:00 113 H 15 07/04/18 12:51 108 H 17 07/04/18 12:41 99 H 07/04/18 12:31 106 H 17 07/04/18 12:21 112 H 07/04/18 12:11 105 H 17 07/04/18 12:00 97.9 F 102 H 96 H 17 07/04/18 11:51 91 H 16 07/04/18 11:41 91 H 19 07/04/18 11:37 90 86 16 02/25/19 11:31 98 H 19 07/04/18 11:21 111 H 20 07/04/18 11:11 100 H 20 07/04/18 11:00 96 H 15 07/04/18 10:41 96 H 17 07/04/18 10:31 95 H 15 07/04/18 10:21 98 H 16 07/04/18 10:11 102 H 17 07/04/18 10:01 105 H 15 07/04/18 09:51 102 H 15 07/04/18 09:41 101 H 18 07/04/18 09:31 105 H 17 07/04/18 09:21 107 H 18 07/04/18 09:11 105 H 19 07/04/18 09:01 103 H 20 07/04/18 08:51 105 H 17 07/04/18 08:41 123 H 26 H 07/04/18 08:31 116 H 18 07/04/18 08:21 118 H 23 07/04/18 08:11 123 H 10 L 07/04/18 08:01 123 H 26 H 07/04/18 08:00 98.8 F 97 H 07/04/18 07:55 90 86 16 Resp BP Pulse Ox 07/05/18 04:31 124/87 90 07/05/18 04:21 124/87 91 07/05/18 04:11 124/87 93 07/05/18 04:08 07/05/18 04:00 133/89 90 07/05/18 03:51 124/87 90 07/05/18 03:41 124/87 93 07/05/18 03:31 124/87 92 07/05/18 03:21 124/87 91 07/05/18 03:11 124/87 92 07/05/18 03:00 124/87 92 07/05/18 02:51 122/73 93 07/05/18 02:41 122/73 94 07/05/18 02:31 122/73 94 07/05/18 02:21 122/73 93 07/05/18 02:11 122/73 93 07/05/18 02:00 122/73 92 07/05/18 01:50 117/79 93 07/05/18 01:41 117/79 93 02/26/19 01:31 117/79 92 07/05/18 01:21 117/79 86 07/05/18 01:11 117/79 93 07/05/18 01:00 117/79 92 07/05/18 00:51 119/81 93 07/05/18 00:41 119/81 93 07/05/18 00:31 119/81 93 07/05/18 00:21 119/81 92 07/05/18 00:11 119/81 91 07/05/18 00:00 119/81 91 07/04/18 23:50 116/78 92 07/04/18 23:41 116/78 93 07/04/18 23:31 116/78 92 07/04/18 23:21 116/78 93 07/04/18 23:11 116/78 93 07/04/18 23:00 116/78 92 07/04/18 22:51 134/89 95 07/04/18 22:41 134/89 93 07/04/18 22:31 134/89 92 07/04/18 22:21 134/89 92 07/04/18 22:11 134/89 92 07/04/18 22:00 134/89 94 07/04/18 21:51 129/91 95 07/04/18 21:41 129/91 95 07/04/18 21:38 14 07/04/18 21:34 96 07/04/18 21:31 129/91 100 07/04/18 21:28 16 07/04/18 21:20 129/91 93 07/04/18 21:11 129/91 92 07/04/18 21:00 129/91 91 07/04/18 20:51 143/93 93 07/04/18 20:48 07/04/18 20:41 143/93 93 07/04/18 20:31 143/93 93 07/04/18 20:21 143/93 93 07/04/18 20:11 143/93 90 07/04/18 20:00 143/93 93 07/04/18 19:51 131/89 92 07/04/18 19:49 131/89 93 07/04/18 19:41 131/89 93 07/04/18 19:31 131/89 93 07/04/18 19:21 131/89 93 07/04/18 19:14 109/76 93 07/04/18 19:11 131/89 93 07/04/18 19:00 131/89 93 07/04/18 18:51 132/90 94 07/04/18 18:41 132/90 95 07/04/18 18:31 132/90 95 07/04/18 18:21 132/90 95 07/04/18 18:11 132/90 95 07/04/18 18:00 132/90 96 07/04/18 17:51 109/76 93 07/04/18 17:41 140/88 95 07/04/18 17:31 140/88 96 07/04/18 17:23 109/76 91 07/04/18 16:41 109/76 93 07/04/18 16:31 109/76 93 07/04/18 16:21 109/76 95 07/04/18 16:11 109/76 93 07/04/18 16:00 109/76 92 07/04/18 15:51 105/72 91 07/04/18 15:41 105/72 93 07/04/18 15:31 105/72 94 07/04/18 15:21 105/72 94 07/04/18 15:11 105/72 94 07/04/18 15:00 105/72 94 07/04/18 14:51 113/71 94 07/04/18 14:41 113/71 96 07/04/18 14:31 113/71 95 07/04/18 14:21 113/71 95 07/04/18 14:11 113/71 95 07/04/18 14:00 113/71 92 07/04/18 13:51 101/75 95 07/04/18 13:41 101/75 95 07/04/18 13:30 101/75 96 07/04/18 13:20 101/75 95 07/04/18 13:10 101/75 95 07/04/18 13:00 101/75 95 07/04/18 12:51 98/65 95 07/04/18 12:41 98/65 95 07/04/18 12:31 98/65 94 07/04/18 12:21 98/65 93 07/04/18 12:11 98/65 95 07/04/18 12:00 98/65 93 07/04/18 11:51 107/62 100 07/04/18 11:41 107/62 100 07/04/18 11:37 16 07/04/18 11:31 107/62 95 07/04/18 11:21 107/62 95 07/04/18 11:11 107/62 93 07/04/18 11:00 107/62 94 07/04/18 10:41 99/62 94 07/04/18 10:31 99/62 94 07/04/18 10:21 99/62 95 07/04/18 10:11 99/62 96 07/04/18 10:01 123/82 94 07/04/18 09:51 123/82 94 07/04/18 09:41 123/82 94 07/04/18 09:31 123/82 93 07/04/18 09:21 123/82 93 07/04/18 09:11 123/82 93 07/04/18 09:01 123/82 94 07/04/18 08:51 123/82 94 07/04/18 08:41 123/82 95 07/04/18 08:31 123/82 95 07/04/18 08:21 123/82 96 07/04/18 08:11 123/82 95 07/04/18 08:01 123/82 95 07/04/18 08:00 96 07/04/18 07:55 16 Intake and Output 07/04/18 07/04/18 07/05/18 15:59 23:59 07:59 Other: Voiding Method Toilet Toilet Toilet - Exam Breasts: Present: normal, Vulva: both: normal Uterus: Present: normal, firm, fundal height at umbilicus Incision: Present: normal, dry, intact (Zhen removed - incision dry, no bleeding, ecchymosis, erythema or drainage.) - Labs Labs: Abnormal lab results 06/30/18 Range/Units 18:40 Crossmatch See Detail
--- NOTE | 2018-07-05 09:03 | Progress Note ---
Assessment and Plan Assessment and plan: Patient is a 28 yo woman with a history of tobacco and illegal drug use who presented to [facility] ED with heavy vaginal bleeding and was admitted by [facility], Dr. Mathur, on 06/30/18 at 20 weeks . She was found to have Placentral Abruption and was taken to surgery. Patient became febrile and it appears patient was transferred to the [facility] under the Hospitalist service on 07/04/18. Also, She was found to have Amphetamines and THC on admission Urine drug screen * Temp of 100.5, tachycardic, tachypenic but nomotensive * No H/H ordered today, D-Dimer elevated at 1719, normal pro-bnp today, UA s howing pyuria * CTA chest Impression: Finding are consistent with diffuse pneumonia with the greater involvement in the left lower lobe, no evidence of acute PE, moderate amount of free fluid in the left upper quadrant of the abdomen associated with omental graying, correlation with surgical history is recommended. -Sepsis, UTI found so far: iv rocephin initiated already, consulted ID, follow urine culture and blood culture which is showing GNR -Elevated D-Dimer, such a wide differential diagnosis in this patient: CTA chest shows diffuse pneumonia LLL, no PE -Acute blood loss anemia due to Placental Abruption s/p 2 units transfused so far: Ordered H/H -Tobacco and Amphetamine in UDS: counseling done CCT 32 minutes History Interval history: Patient was seen and examined. Follow-up on current diagnosis of sepsis. She has SOB. Overnight uneventful febrile. Patient denies any chest pain, nausea/vomiting or severe headaches. Imaging, nursing note, chart, labs and old chart reviewed. Discussed with patient. "Fijazmine" Oscar at bedside, consent obtai n for privacy. Hospitalist Physical - Physical exam Narrative exam: Gen: ill appearing, WDWN, NAD, Awake, Alert, Orientated HEENT: NCAT, EOMI, PERRL, OP Clear Neck: supple, no adenopathy, no thyromegaly, no JVD CVS/Heart: regular tachycardia, normal S1S2, pulses present bilaterally Chest/Lungs: tachypneic, coarse bs bilaterally, Symmetrical chest expansion, good air entry bilaterally GI/Abdomen: soft, NTND, present bowel sounds, no guarding or rebound, suzanne just removed, wound looks c/d/i /Bladder: no suprapubic tenderness, no CVA or paraspinal tenderness Extermity/Skin: no c/c/e, no obvious rash MSK: FROM x 4 Neuro: CN 2-12 grossly intact, no new focal deficits Psych: calm - Constitutional Vitals: Temp Pulse Resp BP Pulse Ox 98.5 F 126 H 27 H 129/81 93 07/05/18 08:00 07/05/18 08:11 07/05/18 08:11 07/05/18 08:11 07/05/18 08:11 General appearance: Present: other (diaphoretic, lethargic, ) Results - Labs CBC & Chem 7: 07/02/18 10:15 06/30/18 21:50 Labs: Laboratory Last Values WBC 3.2 K/mm3 (4.5-11.0) L 06/30/18 18:40 RBC 3.63 M/mm3 (3.65-5.03) L 06/30/18 18:40 Hgb 9.6 gm/dl (10.1-14.3) L 07/02/18 10:15 Hct 28.1 % (30.3-42.9) L D 07/02/18 10:15 MCV 97 fl (79-97) 06/30/18 18:40 MCH 33 pg (28-32) H 06/30/18 18:40 MCHC 35 % (30-34) H 06/30/18 18:40 RDW 12.9 % (13.2-15.2) L 06/30/18 18:40 Plt Count 197 K/mm3 (140-440) 06/30/18 18:40 Lymph % (Auto) 25.8 % (13.4-35.0) 06/30/18 18:40 [place] % (Auto) 1.5 % (0.0-7.3) 06/30/18 18:40 Eos % (Auto) 1.5 % (0.0-4.3) 06/30/18 18:40 Baso % (Auto) 0.8 % (0.0-1.8) 06/30/18 18:40 Lymph # 0.8 K/mm3 (1.2-5.4) L 06/30/18 18:40 [place] # 0.0 K/mm3 (0.0-0.8) 06/30/18 18:40 Eos # 0.0 K/mm3 (0.0-0.4) 06/30/18 18:40 Baso # 0.0 K/mm3 (0.0-0.1) 06/30/18 18:40 Seg Neutrophils % 70.4 % (40.0-70.0) H 06/30/18 18:40 Seg Neutrophils # 2.3 K/mm3 (1.8-7.7) 06/30/18 18:40 PT 14.8 Sec. (12.2-14.9) 06/30/18 21:50 INR 1.09 (0.87-1.13) 06/30/18 21:50 APTT 27.9 Sec. (24.2-36.6) 06/30/18 21:50 D-Dimer 1719.47 ng/mlDDU (0-234) H 07/03/18 15:46 Creatinine 0.4 mg/dL (0.7-1.2) L 06/30/18 21:50 Estimated GFR > 60 ml/min 06/30/18 21:50 Lactic Acid 1.60 mmol/L (0.7-2.0) 07/03/18 21:23 Uric Acid 4.4 mg/dL (3.5-7.6) 06/30/18 21:50 AST 20 units/L (5-40) 06/30/18 21:50 ALT 8 units/L (7-56) 06/30/18 21:50 NT-Pro-B Natriuret Pep 423.7 pg/mL (0-450) 07/03/18 15:46 Urine Color [place] (Yellow) 07/03/18 15:50 Urine Turbidity Slightly-cloudy (Clear) 07/03/18 15:50 Urine pH 7.0 (5.0-7.0) 07/03/18 15:50 Ur Specific [place] 1.027 (1.003-1.030) 07/03/18 15:50 Urine Protein 100 mg/dl mg/dL (Negative) 07/03/18 15:50 Urine Glucose (UA) Neg mg/dL (Negative) 07/03/18 15:50 Urine Ketones Neg mg/dL (Negative) 07/03/18 15:50 Urine Blood Mod (Negative) 07/03/18 15:50 Urine Nitrite Neg (Negative) 07/03/18 15:50 Urine Bilirubin Neg (Negative) 07/03/18 15:50 Urine Urobilinogen < 2.0 mg/dL (<2.0) 07/03/18 15:50 Ur Leukocyte Esterase Mod (Negative) 07/03/18 15:50 Urine WBC (Auto) 110.0 /HPF (0.0-6.0) H 07/03/18 15:50 Urine RBC (Auto) 7.0 /HPF (0.0-6.0) 07/03/18 15:50 U Epithel Cells (Auto) 13.0 /HPF (0-13.0) 07/03/18 15:50 Urine Bacteria (Auto) 1+ /HPF (Negative) 07/03/18 15:50 Urine Mucus 3+ /HPF 07/03/18 15:50 Urine Yeast (Budding) Few /HPF 07/03/18 15:50 Urine Opiates Screen Presumptive negative 07/03/18 15:50 Urine Methadone Screen Presumptive negative 07/03/18 15:50 Ur Barbiturates Screen Presumptive negative 07/03/18 15:50 Ur Phencyclidine Scrn Presumptive negative 07/03/18 15:50 Ur Amphetamines Screen Presumptive negative 07/03/18 15:50 U Benzodiazepines Scrn Presumptive negative 07/03/18 15:50 Urine Cocaine Screen Presumptive negative 07/03/18 15:50 U Marijuana (THC) Screen Presumptive positive 07/03/18 15:50 Drugs of Abuse Note Disclamer 07/03/18 15:50 RPR Nonreactive (Nonreactive) 07/01/18 09:54 Blood Type A POSITIVE 06/30/18 18:40 Antibody Screen Negative 06/30/18 18:40 Crossmatch See Detail 06/30/18 18:40
[2018-07-05] MEDS: HABITROL TD SCH (09:52)
[2018-07-05] MEDS: ROCEPHIN/NS 2 GM/100 ML 2 GM/100 ML BAG IV SCH (09:54)
[2018-07-05 10:20] LABS: Hematocrit 29.1 % (30.3-42.9); Hemoglobin 10.3 gm/dl (10.1-14.3); Mean Corpuscular HGB Conc 35 % (30-34); Mean Corpuscular Volume 92 fl (79-97); Platelet Count 250 K/mm3 (140-440); Red Blood Count 3.18 M/mm3 (3.65-5.03); Red Cell Distribution Width 13.9 % (13.2-15.2)
[2018-07-05] MEDS: PROVENTIL IH SCH ×3 (10:22→19:52)
--- NOTE | 2018-07-05 10:42 | Progress Note ---
Assessment and Plan (1) Sepsis Current Visit: Yes Status: Acute Qualifiers: Sepsis type: sepsis due to unspecified organism Qualified Code(s): A41.9 - Sepsis, unspecified organism Plan to address problem: Cont Sepsis Protocol: IV antibiotic therapy, blood cultures, urinalysis, IVF resuscitation, monitor bp q shift, remote telemetry. (2) Amphetamine abuse Current Visit: Yes Status: Acute Plan to address problem: supportive care, (3) Nicotine dependence Current Visit: Yes Status: Acute Qualifiers: Substance use status: in withdrawal Plan to address problem: smoking cessation counseling, supportive care, (4) DVT prophylaxis Current Visit: Yes Status: Acute Plan to address problem: SCD to BLE while in bed Subjective Date of service: 07/04/18 Principal diagnosis: postop day #5; s/p emergency c/s, abruption, + UDS, transfusion, sepsis Interval history: patient seen and examined, no acute event reported by RN o/N no new complaint Objective - Constitutional Vitals: Vital Signs - 12hr 07/04/18 07/04/18 07/04/18 22:51 23:00 23:11 Temperature Pulse Rate 117 H 117 H 118 H Pulse Rate [ Bilateral Throughout] Pulse Rate [ From Monitor] Respiratory 19 20 18 Rate Respiratory Rate [Bilateral Throughout] Blood Pressure 134/89 116/78 116/78 O2 Sat by Pulse 95 92 93 Oximetry 07/04/18 07/04/18 07/04/18 23:21 23:31 23:41 Temperature Pulse Rate 117 H 116 H 118 H Pulse Rate [ Bilateral Throughout] Pulse Rate [ From Monitor] Respiratory 19 18 18 Rate Respiratory Rate [Bilateral Throughout] Blood Pressure 116/78 116/78 116/78 O2 Sat by Pulse 93 92 93 Oximetry 07/04/18 07/05/18 07/05/18 23:50 00:00 00:11 Temperature 97.9 F Pulse Rate 117 H 119 H 133 H Pulse Rate [ Bilateral Throughout] Pulse Rate [ 100 H From Monitor] Respiratory 19 18 28 H Rate Respiratory Rate [Bilateral Throughout] Blood Pressure 116/78 119/81 119/81 O2 Sat by Pulse 92 91 91 Oximetry 07/05/18 07/05/18 07/05/18 00:21 00:31 00:41 Temperature Pulse Rate 117 H 118 H 116 H Pulse Rate [ Bilateral Throughout] Pulse Rate [ From Monitor] Respiratory 21 20 21 Rate Respiratory Rate [Bilateral Throughout] Blood Pressure 119/81 119/81 119/81 O2 Sat by Pulse 92 93 93 Oximetry 07/05/18 07/05/18 07/05/18 00:51 01:00 01:11 Temperature Pulse Rate 114 H 115 H 116 H Pulse Rate [ Bilateral Throughout] Pulse Rate [ From Monitor] Respiratory 19 20 20 Rate Respiratory Rate [Bilateral Throughout] Blood Pressure 119/81 117/79 117/79 O2 Sat by Pulse 93 92 93 Oximetry 07/05/18 07/05/18 07/05/18 01:21 01:31 01:41 Temperature Pulse Rate 113 H 120 H 117 H Pulse Rate [ Bilateral Throughout] Pulse Rate [ From Monitor] Respiratory 26 H 20 22 Rate Respiratory Rate [Bilateral Throughout] Blood Pressure 117/79 117/79 117/79 O2 Sat by Pulse 86 92 93 Oximetry 07/05/18 07/05/18 07/05/18 01:50 02:00 02:11 Temperature Pulse Rate 112 H 116 H 114 H Pulse Rate [ Bilateral Throughout] Pulse Rate [ From Monitor] Respiratory 22 21 21 Rate Respiratory Rate [Bilateral Throughout] Blood Pressure 117/79 122/73 122/73 O2 Sat by Pulse 93 92 93 Oximetry 07/05/18 07/05/18 07/05/18 02:21 02:31 02:41 Temperature Pulse Rate 116 H 120 H 121 H Pulse Rate [ Bilateral Throughout] Pulse Rate [ From Monitor] Respiratory 21 25 H 24 Rate Respiratory Rate [Bilateral Throughout] Blood Pressure 122/73 122/73 122/73 O2 Sat by Pulse 93 94 94 Oximetry 07/05/18 07/05/18 07/05/18 02:51 03:00 03:11 Temperature Pulse Rate 118 H 118 H 122 H Pulse Rate [ Bilateral Throughout] Pulse Rate [ From Monitor] Respiratory 22 24 29 H Rate Respiratory Rate [Bilateral Throughout] Blood Pressure 122/73 124/87 124/87 O2 Sat by Pulse 93 92 92 Oximetry 07/05/18 07/05/18 07/05/18 03:21 03:31 03:41 Temperature Pulse Rate 119 H 120 H 127 H Pulse Rate [ Bilateral Throughout] Pulse Rate [ From Monitor] Respiratory 24 21 27 H Rate Respiratory Rate [Bilateral Throughout] Blood Pressure 124/87 124/87 124/87 O2 Sat by Pulse 91 92 93 Oximetry 07/05/18 07/05/18 07/05/18 03:51 04:00 04:08 Temperature 100.5 F H Pulse Rate 125 H 120 H Pulse Rate [ Bilateral Throughout] Pulse Rate [ 100 H From Monitor] Respiratory 18 28 H Rate Respiratory Rate [Bilateral Throughout] Blood Pressure 124/87 133/89 O2 Sat by Pulse 90 90 Oximetry 07/05/18 07/05/18 07/05/18 04:11 04:21 04:31 Temperature Pulse Rate 118 H 121 H 118 H Pulse Rate [ Bilateral Throughout] Pulse Rate [ From Monitor] Respiratory 25 H 25 H 26 H Rate Respiratory Rate [Bilateral Throughout] Blood Pressure 124/87 124/87 124/87 O2 Sat by Pulse 93 91 90 Oximetry 07/05/18 07/05/18 07/05/18 04:41 04:51 05:00 Temperature Pulse Rate 116 H 119 H 119 H Pulse Rate [ Bilateral Throughout] Pulse Rate [ From Monitor] Respiratory 22 22 24 Rate Respiratory Rate [Bilateral Throughout] Blood Pressure 124/87 124/87 135/77 O2 Sat by Pulse 90 91 Oximetry 07/05/18 07/05/18 07/05/18 05:11 05:21 05:31 Temperature Pulse Rate 117 H 118 H 116 H Pulse Rate [ Bilateral Throughout] Pulse Rate [ From Monitor] Respiratory 22 22 22 Rate Respiratory Rate [Bilateral Throughout] Blood Pressure 135/77 135/77 135/77 O2 Sat by Pulse 90 91 91 Oximetry 07/05/18 07/05/18 07/05/18 05:41 05:51 06:00 Temperature Pulse Rate 118 H 123 H 117 H Pulse Rate [ Bilateral Throughout] Pulse Rate [ From Monitor] Respiratory 22 22 23 Rate Respiratory Rate [Bilateral Throughout] Blood Pressure 135/77 135/77 129/81 O2 Sat by Pulse 90 91 90 Oximetry 07/05/18 07/05/18 07/05/18 06:11 06:21 06:31 Temperature Pulse Rate 115 H 116 H 114 H Pulse Rate [ Bilateral Throughout] Pulse Rate [ From Monitor] Respiratory 23 21 21 Rate Respiratory Rate [Bilateral Throughout] Blood Pressure 129/81 129/81 129/81 O2 Sat by Pulse 92 91 90 Oximetry 07/05/18 07/05/18 07/05/18 06:41 06:51 07:00 Temperature Pulse Rate 115 H 113 H 107 H Pulse Rate [ Bilateral Throughout] Pulse Rate [ From Monitor] Respiratory 23 22 22 Rate Respiratory Rate [Bilateral Throughout] Blood Pressure 129/81 129/81 123/79 O2 Sat by Pulse 91 91 90 Oximetry 07/05/18 07/05/18 07/05/18 07:11 07:21 07:31 Temperature Pulse Rate 112 H 108 H 109 H Pulse Rate [ Bilateral Throughout] Pulse Rate [ From Monitor] Respiratory 19 20 19 Rate Respiratory Rate [Bilateral Throughout] Blood Pressure 129/81 129/81 129/81 O2 Sat by Pulse 92 92 92 Oximetry 07/05/18 07/05/18 07/05/18 07:41 07:50 08:00 Temperature 98.5 F Pulse Rate 121 H 119 H Pulse Rate [ 126 H Bilateral Throughout] Pulse Rate [ 100 H From Monitor] Respiratory 32 H 18 Rate Respiratory 14 Rate [Bilateral Throughout] Blood Pressure 129/81 129/81 O2 Sat by Pulse 90 98 Oximetry 07/05/18 07/05/18 07/05/18 08:01 08:11 10:24 Temperature Pulse Rate 129 H 126 H Pulse Rate [ 96 H Bilateral Throughout] Pulse Rate [ From Monitor] Respiratory 26 H 27 H Rate Respiratory 18 Rate [Bilateral Throughout] Blood Pressure 129/81 129/81 O2 Sat by Pulse 93 Oximetry General appearance: Present: no acute distress - EENT Eyes: PERRL, EOM intact ENT: hearing intact, clear oral mucosa Ears: bilateral: normal - Neck Neck: supple, normal ROM - Respiratory Respiratory effort: normal Respiratory: bilateral: CTA - Cardiovascular Rhythm: regular Heart Sounds: Present: S1 & S2. Absent: gallop, rub Extremities: pulses intact, No edema, normal color, Full ROM - Gastrointestinal General gastrointestinal: Present: soft, normal bowel sounds - Integumentary Integumentary: clear, warm, dry - Musculoskeletal Musculoskeletal: 1, strength equal bilaterally - Neurologic Neurologic: moves all extremities - Psychiatric Psychiatric: memory intact, appropriate mood/affect, intact judgment & insight - Labs CBC & Chem 7: 07/10/18 05:32 07/10/18 05:32 Labs: Abnormal lab results 07/05/18 Range/Units 10:03 RBC 3.18 L (3.65-5.03) M/mm3 Hct 29.1 L (30.3-42.9) % MCHC 35 H (30-34) %
[2018-07-05 10:45] LABS: Alanine Aminotransferase 9 units/L (7-56); Albumin 1.9 g/dL (3.9-5); BUN/Creatinine Ratio 22; Blood Urea Nitrogen 11 mg/dL (7-17); Calcium 7.7 mg/dL (8.4-10.2); Hemolysis Index 4
[2018-07-05 11:09] LABS: Anisocytosis 1+; Basophils % (Manual) 0 % (0.0-1.8); Eosinophils % (Manual) 0 % (0.0-4.3); Total Cells Counted 100
[2018-07-05 11:10] LABS: Platelet Estimate Consistent w Auto
--- NOTE | 2018-07-05 11:24 | Consultation ---
History of Present Illness - Reason for Consult Consult date: 07/05/18 sepsis Requesting physician: JUSTIN XIONG - History of Present Illness 28 y/o female with a history of tobacco, marihuana, meth abuse; admitted on 06/30/2018 at 30 weeks of , due to acute onset of copious vaginal bleed. Patient was found to have placental abruption and underwent emergent on 06/30/2018. Patient has 3 small kids and they have been sick with "cold symp toms". She reports that she and her partner both has been coughing up for 1-2 weeks. Denies recent fever, chills, N/V/D. In the ED, temp 98.4, HR 111, R22, BP 125/78, WBC 3.2. Hg 12. Plat 157. UA 06/30 neg. Noted fever 100.3-100.8 on 07/02/2018. Repeat UA 07/03 moderate LE, wbc 110. Blood culture 07/03/2018 +GNR 2 of 4 bottles. Repeat blood culture 07/04/2018 negative so far. CXR intial negative. CTA showed diffuse pneumonia with the greater involvement in the left lower lobe, no evidence of acute PE, moderate amount of free fluid in the left upper quadrant of the abdomen associated with omental graying. Review of Systems: General: + fever, no chills, nightsweats, unintentional weight change, or change in appetite Cutaneous: no rash, pruritus Head: no headaches or injury Eyes: no changes in vision, eye pain, double vision Ears: no ear pain, ear discharge, ringing or hearing loss Nose: no nose bleeding, stuffiness Mouth & throat: no bleeding gums, no horseness, no dental problems, or swollen glands Neck: no pain, node enlargement/lumps, tyroid enlargement or tenderness Respiratory: +cough, no wheezing, sputum, hemoptysis, pleuritic chest pain Cardiovascular: no chest pain, leg edema, cyanosis, ORTIZ, orthopnea Musculoskeletal: no decreased joint motion, bone or joint pain, joint swelling, muscle aches Gastrointestinal: no nausea, vomiting, hematemesis, diarrhea, constipation, melena, bright red blood in stools, fecal incontinence, jaundice Genitourinary/Reproductive: no frequent urination, dysuria, hematuria, incontinence + vaginal bleeding Neurogical: no seizures, no headaches, no weakness, no paresthesias, no loss of speech or vision; no memory loss, no vertigo, no tremors, no numbness Psychiatric: stable mood; no excessive anxiety, sadness or moodiness Past History Past Medical History: No medical history, other (reviewed) Past Surgical History: Social history: single. denies: smoking, alcohol abuse, prescription drug abuse Family history: no significant family history (reviewed) Medications and Allergies Allergies Allergy/AdvReac Type Severity Reaction Status Date / Time Sulfa (Sulfonamide Allergy Mild Rash Verified 01/23/13 22:28 Antibiotics) Home Medications Medication Instructions Recorded Confirmed Last Taken Type Cephalexin [Keflex] 500 mg PO QID #28 capsule 03/03/13 12/13/16 Unknown Rx Gentamicin 0.3% Ophth Soln 2 drops OP QID #1 bottle 03/03/13 12/13/16 Unknown Rx Nitrofurantoin [place]/M-Cryst 100 mg PO Q12HR #20 capsule 05/13/14 12/13/16 Unknown Rx [Macrobid] ALBUTEROL Inhaler (OR & NICU) 2 puff IH QID PRN #1 inhalation 04/02/15 12/13/16 Unknown Rx [ProAir HFA Inhaler] Lidocain2.5%/Prilocai2.5% [Emla] 5 gm TP ONCE #1 tube 04/11/15 12/13/16 Unknown Rx 21/Iron Fu/Folic Acid 1 each PO DAILY #30 tablet 04/06/18 Unknown Rx [ Complete Caplet] Ibuprofen [Motrin 800 MG tab] 800 mg PO TID PRN #30 tablet 06/30/18 Unknown Rx oxyCODONE /ACETAMINOPHEN [Percocet 1 - 2 tab PO Q4HR PRN #30 tablet 06/30/18 Unknown Rx 5/325 mg] Active Meds: Active Medications Acetaminophen (Tylenol) 650 mg PO Q4H PRN PRN Reason: Non Cardiac Pain or Temp>100.5 Albuterol (Proventil) 2.5 mg IH Q4HRT PRN PRN Reason: Shortness Of Breath Albuterol (Proventil) 2.5 mg IH TIDRT [facility] Last Admin: 07/05/18 10:22 Dose: 2.5 mg Documented by: Bisacodyl (Dulcolax) 10 mg NV QDAY PRN PRN Reason: Constipation Last Admin: 07/03/18 09:30 Dose: 10 mg Documented by: Diphenhydramine HCl (Benadryl) 25 mg IV Q4H PRN PRN Reason: Itching Diphenhydramine HCl (Benadryl) 25 mg PO Q4H PRN PRN Reason: Itching Hydromorphone/Sodium Chloride (Dilaudid Metal Refiner 6mg/30ml) 0 mg IV DIRECT BLANCA; Protocol Dextrose/Lactated Ringer's (D5lr) 1,000 mls @ 125 mls/hr IV DIRECT BLANCA Oxytocin/Sodium Chloride (Pitocin/Ns 20 Unit/1000ml Drip) 20 units in 1,000 mls @ 250 mls/hr IV DIRECT BLANCA Sodium Chloride (Nacl 0.9% 500 Ml) 500 mls @ 50 mls/hr IV DIRECT BLANCA Ceftriaxone Sodium (Rocephin/Ns 2 Gm/100 Ml) 2 gm in 100 mls @ 200 mls/hr IV Q24HR BLANCA; Protocol Last Admin: 07/05/18 09:54 Dose: 200 mls/hr Documented by: Cefepime HCl (Maxipime/Ns 2 Gm/100 Ml) 2 gm in 100 mls @ 200 mls/hr IV Q8HR BLANCA; Protocol Ibuprofen (Motrin) 800 mg PO Q6H PRN PRN Reason: Pain, Mild (1-3) Last Admin: 07/03/18 14:42 Dose: 800 mg Documented by: Magnesium Hydroxide (Milk Of Magnesia) 30 ml PO QHS PRN PRN Reason: Constip Unrelieved By Senna Last Admin: 07/03/18 09:30 Dose: 30 ml Documented by: Metoclopramide HCl (Reglan) 10 mg IV Q6H PRN PRN Reason: N/V if NPO. Metoclopramide HCl (Reglan) 10 mg PO Q6H PRN PRN Reason: Nausea Morphine Sulfate (Morphine) 4 mg IV Q4H PRN PRN Reason: Pain , Severe (7-10) Last Admin: 07/01/18 06:40 Dose: 4 mg Documented by: Morphine Sulfate (Morphine) 2 mg IV Q4H PRN PRN Reason: Pain, Moderate (4-6) Multi-Ingredient Ointment (Lansinoh) 1 applic TP PRN PRN PRN Reason: dryness/cracking Naloxone HCl (Narcan 0.4 Mg/1 Ml) 0.1 mg IV Q2MIN PRN PRN Reason: Res Rate </= 8 or 02 SAT < 92% Nicotine (Habitrol) 14 mg TD QDAY BLANCA Last Admin: 07/05/18 09:52 Dose: 14 mg Documented by: Oxycodone/Acetaminophen (Percocet 5/325) 2 tab PO Q6H PRN PRN Reason: Pain, Moderate (4-6) Last Admin: 07/05/18 04:00 Dose: 2 tab Documented by: Promethazine HCl (Phenergan) 25 mg NV Q6H PRN PRN Reason: N/V IF NPO AND NO IV ACCESS Simethicone (Mylicon) 80 mg PO Q6H PRN PRN Reason: Gas pain Last Admin: 07/03/18 09:30 Dose: 80 mg Documented by: Witch Liliya/Glycerin (Tucks Pad) 1 each TP PRN PRN PRN Reason: Hemorrhoids/cleansing/soothing Physical Examination - Physical Exam Narrative exam: General appearance: Alert in NAD, conversant Eyes: anicteric sclerae, moist conjunctivae; no lid-lag; PERRLA HENT: Atraumatic; oropharynx clear with moist mucous membranes and no mucosal ulcerations/no oral thrush; normal hard and soft palate. Normal external ears. Neck: Trachea midline; supple, no thyromegaly or lymphadenopathy Lungs: scattered brad crackles CV: RRR, no murmurs Abdomen: Soft, non-tender; Csection wound without drainage, erythrema Extremities: No peripheral edema or extremity lymphadenopathy Skin: Normal temperature, turgor and texture; no rash, ulcers or subcutaneous nodules Psych: Appropriate affect, alert and oriented to person, place and time. Neuro: alert and oriented x 3. Moving all extermities - Constitutional Vitals: Vital Signs Temp Pulse Resp BP Pulse Ox 98.5 F 117 H 25 H 129/81 93 07/05/18 08:00 07/05/18 10:42 07/05/18 10:42 07/05/18 08:11 07/05/18 08:11 Temperature -Last 24 Hours Temperature 98.5 F Temperature 100.5 F Temperature 97.9 F Temperature 97.9 F Temperature 99.3 F Temperature 97.9 F Results - Labs CBC & Chem 7: 07/05/18 10:03 07/05/18 09:38 Labs: Abnormal lab results 07/05/18 07/05/18 Range/Units 09:38 10:03 RBC 3.18 L (3.65-5.03) M/mm3 Hct 29.1 L (30.3-42.9) % MCHC 35 H (30-34) % Seg Neuts % (Manual) 92.0 H (40.0-70.0) % Lymphocytes % (Manual) 7.0 L (13.4-35.0) % Seg Neutrophils # Man 9.0 H (1.8-7.7) K/mm3 Lymphocytes # (Manual) 0.7 L (1.2-5.4) K/mm3 Sodium 135 L (137-145) mmol/L Creatinine 0.5 L (0.7-1.2) mg/dL Calcium 7.7 L (8.4-10.2) mg/dL Total Protein 4.9 L (6.3-8.2) g/dL Albumin 1.9 L (3.9-5) g/dL Assessment and Plan Cultures: Blood culture 07/03/2018 GNR 2 of 4 bottles Blood culture 07/04/2018 negative so far Urine culture 07/03/2018 10-100K multiple sp Assessment: 28 y/o female with a history of tobacco, marihuana, meth abuse; admitted on 06/30/2018 at 30 weeks of , due to acute onset of copious vaginal bleed. Patient was found to have placental abruption and underwent emergent on 06/30/2018: 1) Sepsis: Not Present on admission, manifested by fever, tachycardia. Etiology most likely bacteremia +/- pneumonia +/- UTI. 2) GNR bacteremia: Blood culture 07/03/2018 +GNR 2 of 4 bottles. Repeat blood culture 07/04/2018 negative so far. Unclear source ? UTI (however UA is not that impressive for UTI) ? H. flu pneumonia +/- other sources. 3) Bilateral pneumonia: Patient has 3 small kids and they have been sick with "cold symptoms". She reports that she and her partner both has been coughing up for 1-2 weeks. CXR initial negative. CTA chest 07/03 showed diffuse pneumonia with the greater involvement in the left lower lobe, no evidence of acute PE, mo derate amount of free fluid in the left upper quadrant of the abdomen associated with omental graying. Likely CAP versus post-influenza pneumonia versus HAP. 4) UTI: UA 06/30 neg. Repeat UA 07/03 moderate LE, wbc 110. ?riojas-associated. Urine culture 07/03/2018 10-100K multiple sp Recommendations: - follow-up blood cultures ID and MICs - continue cefepime to cover CAP/HAP/UTI - add azithromycin to cover CAP/atypicals - check influenza antigen and PCR - add tamiflu for now Will follow. Sailaja Puentes MD Infectious Diseases [employer] [facility] M [phone] O [phone]
[2018-07-05] MEDS: MAXIPIME/NS 2 GM/100 ML 2 GM/100 ML BAG IV SCH ×3 (12:00→22:15)
[2018-07-05] MEDS: IBUPROFEN PO PRN (17:40)
[2018-07-06] MEDS: MAXIPIME/NS 2 GM/100 ML 2 GM/100 ML BAG IV SCH ×3 (06:20→23:05)
[2018-07-06] MEDS: PERCOCET 5/325 PO PRN (06:26)
[2018-07-06] MEDS: PROVENTIL IH SCH ×3 (07:39→20:10)
[2018-07-06] MEDS: HABITROL TD SCH (10:50)
--- NOTE | 2018-07-06 11:29 | Progress Note ---
Assessment and Plan Assessment and plan: Patient is a 28 yo woman with a history of tobacco and illegal drug use who presented to [facility] ED with heavy vaginal bleeding and was admitted by RUBBER WORKER, Dr. Mathur, on 06/30/18 at 20 weeks . She was found to have Placentral Abruption and was taken to surgery. Patient became febrile and it appears patient was transferred to the [facility] under the Hospitalist service on 07/04/18. Also, She was found to have Amphetamines and THC on admission Urine drug screen * Temp of 100.5, tachycardic, tachypenic but nomotensive * D-Dimer elevated at 1719, normal pro-bnp today, UA showing pyuria * CTA chest Impression: Finding are consistent with diffuse pneumonia with the greater involvement in the left lower lobe, no evidence of acute PE, moderate amount of free fluid in the left upper quadrant of the abdomen associated with omental graying, correlation with surgical history is recommended. -Sepsis, UTI and Bilateral pneumonia, HR 101 and WBC 3.2, so SIRS with organ dy sfunction was poa: iv rocephin initiated, consulted ID, follow blood culture which is showing GNR, so i added IV Cefepime and ID added azithomycin -Elevated D-Dimer, such a wide differential diagnosis in this patient: CTA chest shows diffuse pneumonia LLL, no PE -Acute blood loss anemia due to Placental Abruption s/p 2 units transfused so far, h/h stable -Tobacco and Amphetamine in UDS: counseling done -Severe malnutrition, albumin 1.9, most likely poa: consult Hematology Technologist, add regular diet -DVT prophylaxis: Hold A/C due to recent bleeding, encourage ambulation History Interval history: Patient was seen and examined. Follow-up on current diagnosis of sepsis. SOB resolved, she is walking around room without problems. Overnight uneventful febrile. Patient denies any chest pain, nausea/vomiting or severe headaches. Imaging, nursing note, chart, labs and old chart reviewed. Discussed with patient. Hospitalist Physical - Physical exam Narrative exam: Gen: ill appearing, WDWN, NAD, Awake, Alert, Orientated HEENT: NCAT, EOMI, PERRL, OP Clear Neck: supple, no adenopathy, no thyromegaly, no JVD CVS/Heart: regular tachycardia, normal S1S2, pulses present bilaterally Chest/Lungs: tachypnea resolved, coarse bs bilaterally, Symmetrical chest expansion, good air entry bilaterally GI/Abdomen: soft, NTND, present bowel sounds, no guarding or rebound, suzanne just removed, wound looks c/d/i /Bladder: no suprapubic tenderness, no CVA or paraspinal tenderness Extermity/Skin: no c/c/e, no obvious rash MSK: FROM x 4 Neuro: CN 2-12 grossly intact, no new focal deficits Psych: calm - Constitutional Vitals: Temp Pulse Resp BP Pulse Ox 99.9 F H 96 H 17 123/87 99 07/06/18 08:00 07/06/18 07:40 07/06/18 07:40 07/06/18 04:01 07/06/18 07:42 General appearance: Present: other (diaphoretic, lethargic, ) Results - Labs CBC & Chem 7: 07/05/18 10:03 07/05/18 09:38 Labs: Laboratory Last Values WBC 9.8 K/mm3 (4.5-11.0) 07/05/18 10:03 RBC 3.18 M/mm3 (3.65-5.03) L 07/05/18 10:03 Hgb 10.3 gm/dl (10.1-14.3) 07/05/18 10:03 Hct 29.1 % (30.3-42.9) L 07/05/18 10:03 MCV 92 fl (79-97) 07/05/18 10:03 MCH 32 pg (28-32) 07/05/18 10:03 MCHC 35 % (30-34) H 07/05/18 10:03 RDW 13.9 % (13.2-15.2) 07/05/18 10:03 Plt Count 250 K/mm3 (140-440) 07/05/18 10:03 Lymph % (Auto) 25.8 % (13.4-35.0) 06/30/18 18:40 [place] % (Auto) 1.5 % (0.0-7.3) 06/30/18 18:40 Eos % (Auto) 1.5 % (0.0-4.3) 06/30/18 18:40 Baso % (Auto) 0.8 % (0.0-1.8) 06/30/18 18:40 Lymph # 0.8 K/mm3 (1.2-5.4) L 06/30/18 18:40 [place] # 0.0 K/mm3 (0.0-0.8) 06/30/18 18:40 Eos # 0.0 K/mm3 (0.0-0.4) 06/30/18 18:40 Baso # 0.0 K/mm3 (0.0-0.1) 06/30/18 18:40 Add Manual Diff Complete 07/05/18 10:03 Total Counted 100 07/05/18 10:03 Seg Neutrophils % 70.4 % (40.0-70.0) H 06/30/18 18:40 Seg Neuts % (Manual) 92.0 % (40.0-70.0) H 07/05/18 10:03 Band Neutrophils % 0 % 07/05/18 10:03 Lymphocytes % (Manual) 7.0 % (13.4-35.0) L 07/05/18 10:03 Reactive Lymphs % (Man) 0 % 07/05/18 10:03 Monocytes % (Manual) 1.0 % (0.0-7.3) 07/05/18 10:03 Eosinophils % (Manual) 0 % (0.0-4.3) 07/05/18 10:03 Basophils % (Manual) 0 % (0.0-1.8) 07/05/18 10:03 Metamyelocytes % 0 % 07/05/18 10:03 Myelocytes % 0 % 07/05/18 10:03 Promyelocytes % 0 % 07/05/18 10:03 Blast Cells % 0 % 07/05/18 10:03 Nucleated RBC % Not Reportable 07/05/18 10:03 Seg Neutrophils # 2.3 K/mm3 (1.8-7.7) 06/30/18 18:40 Seg Neutrophils # Man 9.0 K/mm3 (1.8-7.7) H 07/05/18 10:03 Band Neutrophils # 0.0 K/mm3 07/05/18 10:03 Lymphocytes # (Manual) 0.7 K/mm3 (1.2-5.4) L 07/05/18 10:03 Abs React Lymphs (Man) 0.0 K/mm3 07/05/18 10:03 Monocytes # (Manual) 0.1 K/mm3 (0.0-0.8) 07/05/18 10:03 Eosinophils # (Manual) 0.0 K/mm3 (0.0-0.4) 07/05/18 10:03 Basophils # (Manual) 0.0 K/mm3 (0.0-0.1) 07/05/18 10:03 Metamyelocytes # 0.0 K/mm3 07/05/18 10:03 Myelocytes # 0.0 K/mm3 07/05/18 10:03 Promyelocytes # 0.0 K/mm3 07/05/18 10:03 Blast Cells # 0.0 K/mm3 07/05/18 10:03 WBC Morphology Not Reportable 07/05/18 10:03 Hypersegmented Neuts Not Reportable 07/05/18 10:03 Hyposegmented Neuts Not Reportable 07/05/18 10:03 Hypogranular Neuts Not Reportable 07/05/18 10:03 Smudge Cells Not Reportable 07/05/18 10:03 Toxic Granulation Not Reportable 07/05/18 10:03 Toxic Vacuolation Not Reportable 07/05/18 10:03 Dohle Bodies Not Reportable 07/05/18 10:03 Pelger-Huet Anomaly Not Reportable 07/05/18 10:03 Ronak Rods Not Reportable 07/05/18 10:03 Platelet Estimate Consistent w auto 07/05/18 10:03 Clumped Platelets Not Reportable 07/05/18 10:03 Plt Clumps, EDTA Not Reportable 07/05/18 10:03 Large Platelets Not Reportable 07/05/18 10:03 Giant Platelets Not Reportable 07/05/18 10:03 Platelet Satelliting Not Reportable 07/05/18 10:03 Plt Morphology Comment Not Reportable 07/05/18 10:03 RBC Morphology Not Reportable 07/05/18 10:03 Dimorphic RBCs Not Reportable 07/05/18 10:03 Polychromasia Not Reportable 07/05/18 10:03 Hypochromasia Not Reportable 07/05/18 10:03 Poikilocytosis Not Reportable 07/05/18 10:03 Anisocytosis 1+ 07/05/18 10:03 Microcytosis Not Reportable 07/05/18 10:03 Macrocytosis Not Reportable 07/05/18 10:03 Spherocytes Not Reportable 07/05/18 10:03 Pappenheimer Bodies Not Reportable 07/05/18 10:03 Sickle Cells Not Reportable 07/05/18 10:03 Target Cells Not Reportable 07/05/18 10:03 Tear Drop Cells Not Reportable 07/05/18 10:03 Ovalocytes Not Reportable 07/05/18 10:03 Helmet Cells Not Reportable 07/05/18 10:03 Mcneill-Brinkley Bodies Not Reportable 07/05/18 10:03 [place] Rings Not Reportable 07/05/18 10:03 [place] Cells Not Reportable 07/05/18 10:03 Bite Cells Not Reportable 07/05/18 10:03 Crenated Cell Not Reportable 07/05/18 10:03 Elliptocytes Not Reportable 07/05/18 10:03 Acanthocytes (Spur) Not Reportable 07/05/18 10:03 Rouleaux Not Reportable 07/05/18 10:03 Hemoglobin C Crystals Not Reportable 07/05/18 10:03 Schistocytes Not Reportable 07/05/18 10:03 Malaria parasites Not Reportable 07/05/18 10:03 Ilya Bodies Not Reportable 07/05/18 10:03 Hem Pathologist Commnt No 07/05/18 10:03 PT 14.8 Sec. (12.2-14.9) 06/30/18 21:50 INR 1.09 (0.87-1.13) 06/30/18 21:50 APTT 27.9 Sec. (24.2-36.6) 06/30/18 21:50 D-Dimer 1719.47 ng/mlDDU (0-234) H 07/03/18 15:46 Sodium 135 mmol/L (137-145) L 07/05/18 09:38 Potassium 3.9 mmol/L (3.6-5.0) 07/05/18 09:38 Chloride 100.4 mmol/L (98-107) 07/05/18 09:38 Carbon Dioxide 22 mmol/L (22-30) 07/05/18 09:38 Anion Gap 17 mmol/L 07/05/18 09:38 BUN 11 mg/dL (7-17) 07/05/18 09:38 Creatinine 0.5 mg/dL (0.7-1.2) L 07/05/18 09:38 Estimated GFR > 60 ml/min 07/05/18 09:38 BUN/Creatinine Ratio 22 % 07/05/18 09:38 Glucose 94 mg/dL (65-100) 07/05/18 09:38 Lactic Acid 1.60 mmol/L (0.7-2.0) 07/03/18 21:23 Uric Acid 4.4 mg/dL (3.5-7.6) 06/30/18 21:50 Calcium 7.7 mg/dL (8.4-10.2) L 07/05/18 09:38 Total Bilirubin 0.50 mg/dL (0.1-1.2) 07/05/18 09:38 AST 13 units/L (5-40) 07/05/18 09:38 ALT 9 units/L (7-56) 07/05/18 09:38 Alkaline Phosphatase 100 units/L (35-129) 07/05/18 09:38 NT-Pro-B Natriuret Pep 423.7 pg/mL (0-450) 07/03/18 15:46 Total Protein 4.9 g/dL (6.3-8.2) L 07/05/18 09:38 Albumin 1.9 g/dL (3.9-5) L 07/05/18 09:38 Albumin/Globulin Ratio 0.6 % 07/05/18 09:38 Urine Color Valentine (Yellow) 07/03/18 15:50 Urine Turbidity Slightly-cloudy (Clear) 07/03/18 15:50 Urine pH 7.0 (5.0-7.0) 07/03/18 15:50 Ur Specific [place] 1.027 (1.003-1.030) 07/03/18 15:50 Urine Protein 100 mg/dl mg/dL (Negative) 07/03/18 15:50 Urine Glucose (UA) Neg mg/dL (Negative) 07/03/18 15:50 Urine Ketones Neg mg/dL (Negative) 07/03/18 15:50 Urine Blood Mod (Negative) 07/03/18 15:50 Urine Nitrite Neg (Negative) 07/03/18 15:50 Urine Bilirubin Neg (Negative) 07/03/18 15:50 Urine Urobilinogen < 2.0 mg/dL (<2.0) 07/03/18 15:50 Ur Leukocyte Esterase Mod (Negative) 07/03/18 15:50 Urine WBC (Auto) 110.0 /HPF (0.0-6.0) H 07/03/18 15:50 Urine RBC (Auto) 7.0 /HPF (0.0-6.0) 07/03/18 15:50 U Epithel Cells (Auto) 13.0 /HPF (0-13.0) 07/03/18 15:50 Urine Bacteria (Auto) 1+ /HPF (Negative) 07/03/18 15:50 Urine Mucus 3+ /HPF 07/03/18 15:50 Urine Yeast (Budding) Few /HPF 07/03/18 15:50 Urine Opiates Screen Presumptive negative 07/03/18 15:50 Urine Methadone Screen Presumptive negative 07/03/18 15:50 Ur Barbiturates Screen Presumptive negative 07/03/18 15:50 Ur Phencyclidine Scrn Presumptive negative 07/03/18 15:50 Ur Amphetamines Screen Presumptive negative 07/03/18 15:50 U Benzodiazepines Scrn Presumptive negative 07/03/18 15:50 Urine Cocaine Screen Presumptive negative 07/03/18 15:50 U Marijuana (THC) Screen Presumptive positive 07/03/18 15:50 Drugs of Abuse Note Disclamer 07/03/18 15:50 RPR Nonreactive (Nonreactive) 07/01/18 09:54 Blood Type A POSITIVE 06/30/18 18:40 Antibody Screen Negative 06/30/18 18:40 Crossmatch See Detail 06/30/18 18:40
--- NOTE | 2018-07-06 12:23 | Progress Note ---
Assessment and Plan Cultures: Blood culture 07/03/2018 GNR 2 of 4 bottles Blood culture 07/04/2018 negative so far Urine culture 07/03/2018 10-100K multiple sp Assessment: 28 y/o female with a history of tobacco, marihuana, meth abuse; admitted on 06/30/2018 at 30 weeks of , due to acute onset of copious vaginal bleed. Patient was found to have placental abruption and underwent emergent on 06/30/2018: 1) Sepsis: Improving, still fevers Etiology most likely bacteremia +/- pneumonia +/- UTI. 2) GNR bacteremia: Blood culture 07/03/2018 +GNR 2 of 4 bottles. Repeat blood culture 07/04/2018 negative so far. Unclear source ? UTI (however UA is not that impressive for UTI) ? H. flu pneumonia +/- other sources. 3) Bilateral pneumonia: Patient has 3 small kids and they have been sick with "cold symptoms". She reports that she and her partner both has been coughing up for 1-2 weeks. CXR initial negative. CTA chest 07/03 showed diffuse pneumonia with the greater involvement in the left lower lobe, no evidence of acute PE, moderate amount of free fluid in the left upper quadrant of the abdomen associated with omental graying. Likely CAP versus post-influenza pneumonia versus HAP. 4) UTI: UA 06/30 neg. Repeat UA 07/03 moderate LE, wbc 110. ?riojas-associated. Urine culture 07/03/2018 10-100K multiple sp Recommendations: - follow-up blood cultures ID and MICs - continue cefepime to cover CAP/HAP/UTI - continue azithromycin to cover CAP/atypicals - f/u influenza antigen and PCR - continue tamiflu for now [facility] M: [phone] O:[phone] Subjective Date of service: 07/06/18 Principal diagnosis: postop day #5; s/p emergency c/s, abruption, + UDS, transfusion, sepsis Interval history: Patient seen and examined. Complained of generalized weakness, low grade fevers. Objective - Exam Narrative Exam: Narrative exam: General appearance: Asleep, generalized weakness. Conversant. Eyes: anicteric sclerae, moist conjunctivae; no lid-lag; PERRLA HENT: Atraumatic; oropharynx clear with moist mucous membranes and no mucosal ulcerations/no oral thrush; normal hard and soft palate. Normal external ears. Neck: Trachea midline; supple, no thyromegaly or lymphadenopathy Lungs: scattered brad crackles CV: RRR, no murmurs Abdomen: Soft, non-tender; Csection wound without drainage, erythrema Extremities: No peripheral edema or extremity lymphadenopathy Skin: Normal temperature, turgor and texture; no rash, ulcers or subcutaneous nodules Psych: Appropriate affect, alert and oriented to person, place and time. Neuro: alert and oriented x 3. Moving all extermities - Constitutional Vitals: Vital Signs Temp Pulse Resp BP Pulse Ox 99.9 F H 96 H 17 123/87 99 07/06/18 08:00 07/06/18 07:40 07/06/18 07:40 07/06/18 04:01 07/06/18 07:42 Temperature -Last 24 Hours Temperature 99.9 F Temperature 99.1 F Temperature 99.1 F Temperature 99.7 F Temperature 100.3 F Temperature 97.2 F - Labs CBC & Chem 7: 07/05/18 10:03 07/05/18 09:38
[2018-07-06] MEDS: ZITHROMAX PO SCH (12:36)
[2018-07-06] MEDS: MORPHINE IV PRN (18:20)
[2018-07-06] MEDS: TYLENOL PO PRN (21:06)
--- NOTE | 2018-07-06 21:24 | Progress Note ---
Assessment and Plan - Patient Problems (1) Pneumonia Current Visit: Yes Status: Acute (2) Delivery by emergency section Current Visit: Yes Status: Acute Plan to address problem: No s/s endometritis or mastitis. Incision healing well (3) Placental abruption Current Visit: Yes Status: Acute Qualifiers: Trimester: third trimester Qualified Code(s): O45.93 - Premature separation of placenta, unspecified, third trimester (4) Breech presentation Current Visit: Yes Status: Acute Qualifiers: Fetus number: single or unspecified fetus Qualified Code(s): O32.1XX0 - Maternal care for breech presentation, not applicable or unspecified (5) Anemia Current Visit: Yes Status: Acute Qualifiers: Other causes of anemia: acute posthemorrhagic (6) 30 weeks gestation of Current Visit: Yes Status: Acute (7) Amphetamine abuse Current Visit: Yes Status: Acute (8) Marijuana abuse Current Visit: Yes Status: Acute (9) Tobacco smoking complicating Current Visit: Yes Status: Acute (10) Wheezing Current Visit: Yes Status: Acute Subjective - Subjective Date of service: 07/06/18 Principal diagnosis: postop day #5; s/p emergency c/s, abruption, + UDS, transfusion, sepsis Patient reports: appetite normal, flatus Objective - Vital Signs Latest vital signs: Vital Signs Temp Pulse Pulse Pulse Resp Resp BP 07/06/18 21:06 28 H 07/06/18 20:20 127 H 19 07/06/18 20:12 07/06/18 20:10 115 H 22 07/06/18 15:09 94 H 17 07/06/18 14:00 90 17 07/06/18 12:00 99.0 F 96 H 18 07/06/18 08:00 99.9 F H 96 H 18 07/06/18 07:42 07/06/18 07:40 96 H 17 07/06/18 04:01 92 H 15 12307/06/18 04:00 99.1 F 98 H 07/06/18 03:51 90 14 07/06/18 03:41 90 12 07/06/18 03:31 78 13 07/06/18 03:21 98 H 16 07/06/18 03:11 93 H 13 07/06/18 03:01 90 14 123/87 07/06/18 02:51 87 14 123/87 07/06/18 02:41 92 H 15 123/87 07/06/18 02:31 90 15 123/87 07/06/18 02:21 93 H 14 123/87 07/06/18 02:11 87 13 123/87 07/06/18 02:01 87 14 123/87 07/06/18 01:51 91 H 17 123/87 07/06/18 01:41 104 H 20 123/87 07/06/18 01:31 91 H 16 123/87 07/06/18 01:21 89 16 123/87 07/06/18 01:11 91 H 18 123/87 07/06/18 01:01 88 18 123/87 07/06/18 00:51 90 16 123/87 07/06/18 00:41 92 H 17 123/87 07/06/18 00:31 110 H 26 H 123/87 07/06/18 00:21 101 H 19 123/87 07/06/18 00:11 95 H 19 123/87 07/06/18 00:01 97 H 19 123/87 07/06/18 00:00 99.7 F H 98 H 07/05/18 23:51 97 H 18 123/87 07/05/18 23:41 104 H 19 123/87 07/05/18 23:31 101 H 21 123/87 07/05/18 23:21 108 H 18 123/87 07/05/18 23:11 99 H 20 123/87 07/05/18 23:01 103 H 20 123/87 07/05/18 22:51 108 H 21 123/87 07/05/18 22:40 109 H 23 123/87 07/05/18 22:31 114 H 22 123/87 07/05/18 22:21 114 H 18 123/87 07/05/18 22:11 115 H 20 123/87 07/05/18 22:00 112 H 25 H 123/87 07/05/18 21:51 115 H 19 131/90 07/05/18 21:41 114 H 21 131/90 07/05/18 21:31 119 H 21 131/90 Pulse Ox 07/06/18 21:06 07/06/18 20:20 07/06/18 20:12 98 07/06/18 20:10 07/06/18 15:09 07/06/18 14:00 07/06/18 12:00 99 07/06/18 08:00 99 07/06/18 07:42 99 07/06/18 07:40 07/06/18 04:01 97 07/06/18 04:00 98 07/06/18 03:51 97 07/06/18 03:41 95 07/06/18 03:31 98 07/06/18 03:21 96 07/06/18 03:11 97 07/06/18 03:01 98 07/06/18 02:51 98 07/06/18 02:41 100 07/06/18 02:31 99 07/06/18 02:21 99 07/06/18 02:11 100 07/06/18 02:01 99 07/06/18 01:51 99 07/06/18 01:41 97 07/06/18 01:31 99 07/06/18 01:21 99 07/06/18 01:11 99 07/06/18 01:01 99 07/06/18 00:51 99 07/06/18 00:41 99 07/06/18 00:31 87 07/06/18 00:21 94 07/06/18 00:11 96 07/06/18 00:01 94 07/06/18 00:00 98 07/05/18 23:51 95 07/05/18 23:41 96 07/05/18 23:31 95 07/05/18 23:21 95 07/05/18 23:11 95 07/05/18 23:01 94 07/05/18 22:51 91 07/05/18 22:40 95 07/05/18 22:31 95 07/05/18 22:21 95 07/05/18 22:11 97 07/05/18 22:00 95 07/05/18 21:51 98 07/05/18 21:41 97 07/05/18 21:31 96 Intake and Output 07/06/18 07/06/18 07/06/18 06:59 14:59 22:59 Intake Total 100 250 Output Total 1100 Balance 100 -850 Intake: IV 100 MAXIPIME/NS 2 GM/100 ML 2 100 gm In 100 ml @ 200 mls/ hr IV Q8HR [facility] Rx#: [id number] Oral 250 Output: Urine 1100 Void 1100 Other: Total, Intake Amount 250 Total, Output Amount 1100 Voiding Method Toilet Toilet Weight 60.328 kg Patient Weight 07/07/18 06:59 Weight 60.328 kg - Exam Breasts: Present: deferred Abdomen: Present: normal appearance, soft. Absent: distention, tenderness, guarding Uterus: Absent: tenderness Incision: Present: normal, dry, intact
[2018-07-06] MEDS ORDERED: HEPARIN SUB-Q SCH (22:00)
[2018-07-06] MEDS: FLAGYL 500 MG/100 ML 500 MG/100 ML BAG IV SCH (23:04)
[2018-07-07] MEDS: PERCOCET 5/325 PO PRN ×3 (01:09→19:59)
[2018-07-07] MEDS: TYLENOL PO PRN (05:39)
[2018-07-07] MEDS: FLAGYL 500 MG/100 ML 500 MG/100 ML BAG IV SCH ×3 (05:40→22:52)
[2018-07-07] MEDS: MAXIPIME/NS 2 GM/100 ML 2 GM/100 ML BAG IV SCH ×3 (05:40→22:48)
[2018-07-07] MEDS: PROVENTIL IH SCH ×3 (07:49→19:08)
--- NOTE | 2018-07-07 07:58 | Progress Note ---
Assessment and Plan Cultures: Blood culture 07/03/2018 Prevotella loescheii 2 of 4 bottles Blood culture 07/04/2018 negative so far Urine culture 07/03/2018 10-100K multiple sp Assessment: 28 y/o female with a history of tobacco, marihuana, meth abuse; admitted on 06/30/2018 at 30 weeks of , due to acute onset of copious vaginal bleed. Patient was found to have placental abruption and underwent emergent on 06/30/2018: 1) Sepsis: Still fever unclear reason ? from Prevotella bacteremia just identified yesterday started on flagyl versus Influenza. Not Present on admission, manifested by fever, tachycardia. Etiology most likely bacteremia +/- pneumonia +/- UTI. 2) Prevotella bacteremia: Blood culture 07/03/2018 Prevotella loescheii 2 of 4 bottles 2 of 4 bottles. Repeat blood culture 07/04/2018 negative so far. Unclear source ? placenta abruption/recent C section, Prevotella it is usually a vaginal or bowel gorge. Flagyl IV added yesterday. 3) Bilateral pneumonia: Patient has 3 small kids and they have been sick with "cold symptoms". She reports that she and her partner both has been coughing up for 1-2 weeks. CXR initial negative. CTA chest 07/03 showed diffuse pneumonia with the greater involvement in the left lower lobe, no evidence of acute PE, moderate amount of free fluid in the left upper quadrant of the abdomen associated with omental graying. Likely CAP versus post-influenza pneumonia versus HAP. 4) UTI: UA 06/30 neg. Repeat UA 07/03 moderate LE, wbc 110. ?riojas-associated. Urine culture 07/03/2018 10-100K multiple sp Recommendations: - follow-up repeat blood cultures - continue cefepime D3 to cover CAP/HAP/UTI - continue flagyl D2 cover Prevotella - continue azithromycin D3 to cover CAP/atypicals - f/u influenza antigen and PCR - pending - start tamiflu Will follow. Sailaja Puentes MD Infectious Diseases Scenic Designer [facility] M [phone] O [phone] Subjective Date of service: 07/07/18 Principal diagnosis: postop day #5; s/p emergency c/s, abruption, + UDS, astudillo sfusion, sepsis Interval history: Remains c/o high fever at 101. No pain except for surgical site. Review of Systems: General: + fever, chills Cutaneous: no rash, pruritus Respiratory: no cough, chest pain, SOB Gastrointestinal: no nausea, vomiting, diarrhea \\ Objective - Exam Narrative Exam: General appearance: Alert in NAD, conversant Eyes: anicteric sclerae, moist conjunctivae; no lid-lag; PERRLA HENT: Atraumatic; oropharynx clear with moist mucous membranes and no mucosal ulcerations/no oral thrush; normal hard and soft palate. Normal external ears. Neck: Trachea midline; supple, no thyromegaly or lymphadenopathy Lungs: scattered brad crackles CV: tachycardic Abdomen: Soft, non-tender; Csection wound without drainage, erythrema Extremities: No peripheral edema or extremity lymphadenopathy Skin: Normal temperature, turgor and texture; no rash, ulcers or subcutaneous nodules Psych: Appropriate affect, alert and oriented to person, place and time. Neuro: alert and oriented x 3. Moving all extermities - Constitutional Vitals: Vital Signs Temp Pulse Resp BP Pulse Ox 101.2 F H 85 16 122/84 100 07/07/18 04:00 07/07/18 06:31 07/07/18 06:31 07/07/18 06:31 07/07/18 06:31 Temperature -Last 24 Hours Temperature 101.2 F Temperature 100.8 F Temperature 101.5 F Temperature 99.0 F Temperature 99.9 F - Labs CBC & Chem 7: 07/05/18 10:03 07/05/18 09:38
[2018-07-07] MEDS: ZITHROMAX PO SCH (10:15)
[2018-07-07] MEDS: HABITROL TD SCH (10:15)
[2018-07-07] MEDS: TAMIFLU PO SCH ×2 (10:37→22:49)
[2018-07-07] MEDS ORDERED: IBUPROFEN PO PRN (12:38)
--- NOTE | 2018-07-07 12:53 | Progress Note ---
Assessment and Plan Assessment and plan: Patient is a 28 yo woman with a history of tobacco and illegal drug use who presented to [facility] ED with heavy vaginal bleeding and was admitted by PRODUCTIVITY ENGINEER, Dr. Mathur, on 06/30/18 at 20 weeks . She was found to have Placentral Abruption and was taken to surgery. Patient became febrile and it appears patient was transferred to the [facility] under the Hospitalist service on 07/04/18. Also, She was found to have Amphetamines and THC on admission Urine drug screen * Temp of 100.5, tachycardic, tachypenic but nomotensive * D-Dimer elevated at 1719, normal pro-bnp today, UA showing pyuria * CTA chest Impression: Finding are consistent with diffuse pneumonia with the greater involvement in the left lower lobe, no evidence of acute PE, moderate amount of free fluid in the left upper quadrant of the abdomen associated with omental graying, correlation with surgical history is recommended. Cultures Blood culture 07/03/2018 Prevotella loescheii 2 of 4 bottles Blood culture 07/04/2018 negative so far Urine culture 07/03/2018 10-100K multiple sp -Sepsis, UTI and Bilateral pneumonia, HR 101 and WBC 3.2, so SIRS with organ dysfunction was poa: iv rocephin initiated, consulted ID, follow blood culture which is showing GNR, so i added IV Cefepime and ID added azithomycin -Prevotella loescheii bacteremia: added Flagyl -Elevated D-Dimer, such a wide differential diagnosis in this patient: CTA chest shows diffuse pneumonia LLL, no PE -Acute blood loss anemia due to Placental Abruption s/p 2 units transfused so far, h/h stable -Tobacco and Amphetamine in UDS: counseling done -Severe malnutrition, albumin 1.9, most likely poa: consult Laundry Marker Supervisor, add regular diet -DVT prophylaxis: Hold A/C due to recent bleeding, encourage ambulation -Still febrile: ID is following, added tamiflu, treat with Ibuprofen for high fevers History Interval history: Patient was seen and examined. Follow-up on current diagnosis of sepsis. SOB resolved, she is walking around room without problems. Overnight uneventful febrile. Patient denies any chest pain, nausea/vomiting or severe headaches. Imaging, nursing note, chart, labs and old chart reviewed. Discussed with patient. Hospitalist Physical - Physical exam Narrative exam: Gen: ill appearing, WDWN, NAD, Awake, Alert, Orientated HEENT: NCAT, EOMI, PERRL, OP Clear Neck: supple, no adenopathy, no thyromegaly, no JVD CVS/Heart: regular tachycardia, normal S1S2, pulses present bilaterally Chest/Lungs: tachypnea resolved, coarse bs bilaterally, Symmetrical chest expansion, good air entry bilaterally GI/Abdomen: soft, NTND, present bowel sounds, no guarding or rebound, suzanne just removed, wound looks c/d/i /Bladder: no suprapubic tenderness, no CVA or paraspinal tenderness Extermity/Skin: no c/c/e, no obvious rash MSK: FROM x 4 Neuro: CN 2-12 grossly intact, no new focal deficits Psych: calm - Constitutional Vitals: Temp Pulse Resp BP Pulse Ox 98 F 101 H 25 H 133/84 99 07/07/18 12:00 07/07/18 12:31 07/07/18 12:31 07/07/18 12:31 07/07/18 12:31 General appearance: Present: other (diaphoretic, lethargic, ) Results - Labs CBC & Chem 7: 07/05/18 10:03 07/05/18 09:38 Labs: Laboratory Last Values WBC 9.8 K/mm3 (4.5-11.0) 07/05/18 10:03 RBC 3.18 M/mm3 (3.65-5.03) L 07/05/18 10:03 Hgb 10.3 gm/dl (10.1-14.3) 07/05/18 10:03 Hct 29.1 % (30.3-42.9) L 07/05/18 10:03 MCV 92 fl (79-97) 07/05/18 10:03 MCH 32 pg (28-32) 07/05/18 10:03 MCHC 35 % (30-34) H 07/05/18 10:03 RDW 13.9 % (13.2-15.2) 07/05/18 10:03 Plt Count 250 K/mm3 (140-440) 07/05/18 10:03 Lymph % (Auto) 25.8 % (13.4-35.0) 06/30/18 18:40 [place] % (Auto) 1.5 % (0.0-7.3) 06/30/18 18:40 Eos % (Auto) 1.5 % (0.0-4.3) 06/30/18 18:40 Baso % (Auto) 0.8 % (0.0-1.8) 06/30/18 18:40 Lymph # 0.8 K/mm3 (1.2-5.4) L 06/30/18 18:40 [place] # 0.0 K/mm3 (0.0-0.8) 06/30/18 18:40 Eos # 0.0 K/mm3 (0.0-0.4) 06/30/18 18:40 Baso # 0.0 K/mm3 (0.0-0.1) 06/30/18 18:40 Add Manual Diff Complete 07/05/18 10:03 Total Counted 100 07/05/18 10:03 Seg Neutrophils % 70.4 % (40.0-70.0) H 06/30/18 18:40 Seg Neuts % (Manual) 92.0 % (40.0-70.0) H 07/05/18 10:03 Band Neutrophils % 0 % 07/05/18 10:03 Lymphocytes % (Manual) 7.0 % (13.4-35.0) L 07/05/18 10:03 Reactive Lymphs % (Man) 0 % 07/05/18 10:03 Monocytes % (Manual) 1.0 % (0.0-7.3) 07/05/18 10:03 Eosinophils % (Manual) 0 % (0.0-4.3) 07/05/18 10:03 Basophils % (Manual) 0 % (0.0-1.8) 07/05/18 10:03 Metamyelocytes % 0 % 07/05/18 10:03 Myelocytes % 0 % 07/05/18 10:03 Promyelocytes % 0 % 07/05/18 10:03 Blast Cells % 0 % 07/05/18 10:03 Nucleated RBC % Not Reportable 07/05/18 10:03 Seg Neutrophils # 2.3 K/mm3 (1.8-7.7) 06/30/18 18:40 Seg Neutrophils # Man 9.0 K/mm3 (1.8-7.7) H 07/05/18 10:03 Band Neutrophils # 0.0 K/mm3 07/05/18 10:03 Lymphocytes # (Manual) 0.7 K/mm3 (1.2-5.4) L 07/05/18 10:03 Abs React Lymphs (Man) 0.0 K/mm3 07/05/18 10:03 Monocytes # (Manual) 0.1 K/mm3 (0.0-0.8) 07/05/18 10:03 Eosinophils # (Manual) 0.0 K/mm3 (0.0-0.4) 07/05/18 10:03 Basophils # (Manual) 0.0 K/mm3 (0.0-0.1) 07/05/18 10:03 Metamyelocytes # 0.0 K/mm3 07/05/18 10:03 Myelocytes # 0.0 K/mm3 07/05/18 10:03 Promyelocytes # 0.0 K/mm3 07/05/18 10:03 Blast Cells # 0.0 K/mm3 07/05/18 10:03 WBC Morphology Not Reportable 07/05/18 10:03 Hypersegmented Neuts Not Reportable 07/05/18 10:03 Hyposegmented Neuts Not Reportable 07/05/18 10:03 Hypogranular Neuts Not Reportable 07/05/18 10:03 Smudge Cells Not Reportable 07/05/18 10:03 Toxic Granulation Not Reportable 07/05/18 10:03 Toxic Vacuolation Not Reportable 07/05/18 10:03 Dohle Bodies Not Reportable 07/05/18 10:03 Pelger-Huet Anomaly Not Reportable 07/05/18 10:03 Ronak Rods Not Reportable 07/05/18 10:03 Platelet Estimate Consistent w auto 07/05/18 10:03 Clumped Platelets Not Reportable 07/05/18 10:03 Plt Clumps, EDTA Not Reportable 07/05/18 10:03 Large Platelets Not Reportable 07/05/18 10:03 Giant Platelets Not Reportable 07/05/18 10:03 Platelet Satelliting Not Reportable 07/05/18 10:03 Plt Morphology Comment Not Reportable 07/05/18 10:03 RBC Morphology Not Reportable 07/05/18 10:03 Dimorphic RBCs Not Reportable 07/05/18 10:03 Polychromasia Not Reportable 07/05/18 10:03 Hypochromasia Not Reportable 07/05/18 10:03 Poikilocytosis Not Reportable 07/05/18 10:03 Anisocytosis 1+ 07/05/18 10:03 Microcytosis Not Reportable 07/05/18 10:03 Macrocytosis Not Reportable 07/05/18 10:03 Spherocytes Not Reportable 07/05/18 10:03 Pappenheimer Bodies Not Reportable 07/05/18 10:03 Sickle Cells Not Reportable 07/05/18 10:03 Target Cells Not Reportable 07/05/18 10:03 Tear Drop Cells Not Reportable 07/05/18 10:03 Ovalocytes Not Reportable 07/05/18 10:03 Helmet Cells Not Reportable 07/05/18 10:03 [place] Bodies Not Reportable 07/05/18 10:03 [place] Rings Not Reportable 07/05/18 10:03 Cherry Cells Not Reportable 07/05/18 10:03 Bite Cells Not Reportable 07/05/18 10:03 Crenated Cell Not Reportable 07/05/18 10:03 Elliptocytes Not Reportable 07/05/18 10:03 Acanthocytes (Spur) Not Reportable 07/05/18 10:03 Rouleaux Not Reportable 07/05/18 10:03 Hemoglobin C Crystals Not Reportable 07/05/18 10:03 Schistocytes Not Reportable 07/05/18 10:03 Malaria parasites Not Reportable 07/05/18 10:03 Ilya Bodies Not Reportable 07/05/18 10:03 Hem Pathologist Commnt No 07/05/18 10:03 PT 14.8 Sec. (12.2-14.9) 06/30/18 21:50 INR 1.09 (0.87-1.13) 06/30/18 21:50 APTT 27.9 Sec. (24.2-36.6) 06/30/18 21:50 D-Dimer 1719.47 ng/mlDDU (0-234) H 07/03/18 15:46 Sodium 135 mmol/L (137-145) L 07/05/18 09:38 Potassium 3.9 mmol/L (3.6-5.0) 07/05/18 09:38 Chloride 100.4 mmol/L (98-107) 07/05/18 09:38 Carbon Dioxide 22 mmol/L (22-30) 07/05/18 09:38 Anion Gap 17 mmol/L 07/05/18 09:38 BUN 11 mg/dL (7-17) 07/05/18 09:38 Creatinine 0.5 mg/dL (0.7-1.2) L 07/05/18 09:38 Estimated GFR > 60 ml/min 07/05/18 09:38 BUN/Creatinine Ratio 22 % 07/05/18 09:38 Glucose 94 mg/dL (65-100) 07/05/18 09:38 Lactic Acid 1.60 mmol/L (0.7-2.0) 07/03/18 21:23 Uric Acid 4.4 mg/dL (3.5-7.6) 06/30/18 21:50 Calcium 7.7 mg/dL (8.4-10.2) L 07/05/18 09:38 Total Bilirubin 0.50 mg/dL (0.1-1.2) 07/05/18 09:38 AST 13 units/L (5-40) 07/05/18 09:38 ALT 9 units/L (7-56) 07/05/18 09:38 Alkaline Phosphatase 100 units/L (35-129) 07/05/18 09:38 NT-Pro-B Natriuret Pep 423.7 pg/mL (0-450) 07/03/18 15:46 Total Protein 4.9 g/dL (6.3-8.2) L 07/05/18 09:38 Albumin 1.9 g/dL (3.9-5) L 07/05/18 09:38 Albumin/Globulin Ratio 0.6 % 07/05/18 09:38 Urine Color [place] (Yellow) 07/03/18 15:50 Urine Turbidity Slightly-cloudy (Clear) 07/03/18 15:50 Urine pH 7.0 (5.0-7.0) 07/03/18 15:50 Ur Specific [place] 1.027 (1.003-1.030) 07/03/18 15:50 Urine Protein 100 mg/dl mg/dL (Negative) 07/03/18 15:50 Urine Glucose (UA) Neg mg/dL (Negative) 07/03/18 15:50 Urine Ketones Neg mg/dL (Negative) 07/03/18 15:50 Urine Blood Mod (Negative) 07/03/18 15:50 Urine Nitrite Neg (Negative) 07/03/18 15:50 Urine Bilirubin Neg (Negative) 07/03/18 15:50 Urine Urobilinogen < 2.0 mg/dL (<2.0) 07/03/18 15:50 Ur Leukocyte Esterase Mod (Negative) 07/03/18 15:50 Urine WBC (Auto) 110.0 /HPF (0.0-6.0) H 07/03/18 15:50 Urine RBC (Auto) 7.0 /HPF (0.0-6.0) 07/03/18 15:50 U Epithel Cells (Auto) 13.0 /HPF (0-13.0) 07/03/18 15:50 Urine Bacteria (Auto) 1+ /HPF (Negative) 07/03/18 15:50 Urine Mucus 3+ /HPF 07/03/18 15:50 Urine Yeast (Budding) Few /HPF 07/03/18 15:50 Urine Opiates Screen Presumptive negative 07/03/18 15:50 Urine Methadone Screen Presumptive negative 07/03/18 15:50 Ur Barbiturates Screen Presumptive negative 07/03/18 15:50 Ur Phencyclidine Scrn Presumptive negative 07/03/18 15:50 Ur Amphetamines Screen Presumptive negative 07/03/18 15:50 U Benzodiazepines Scrn Presumptive negative 07/03/18 15:50 Urine Cocaine Screen Presumptive negative 07/03/18 15:50 U Marijuana (THC) Screen Presumptive positive 07/03/18 15:50 Drugs of Abuse Note Disclamer 07/03/18 15:50 RPR Nonreactive (Nonreactive) 07/01/18 09:54 Blood Type A POSITIVE 06/30/18 18:40 Antibody Screen Negative 06/30/18 18:40 Crossmatch See Detail 06/30/18 18:40 Nutrition/Malnutrition Assess - Dietary Evaluation Nutrition/Malnutrition Findings: Nutrition Notes Start: 07/06/18 12 :46 Freq: Status: Active Protocol: Document 07/06/18 12:46 SA (Rec: 07/06/18 13:05 SA [id number]) Co-Sign 07/06/18 12:46 LP Nutrition Notes Need for Assessment generated from: MD Order Initial or Follow up Assessment Current Diagnosis Sepsis Other Pertinent Diagnosis Pneu, UTI, tobacco and amphetamine abuse, vaginal bleeding Current Diet Regular Labs/Tests Ca: 7.7 Cr: 0.5 Na: 135 Albumin: 1.9 Pertinent Medications Reviewed Height 5 ft 1 in Weight 60.328 kg Usual Body Weight 58.6 kg [place] Body Weight (kg) 47.72 BMI 25.1 Weight Status Overweight Subjective/Other Information MD screen for malnutrition. Patient reports she lost her appetite but now it's back. Patient states eating 50-100% of meals. Patient denies N/V/D . Patient states UBW is 129#. Patient interested in ONS. Percent of energy/protein needs met: 77%/73% Burn Absent Trauma Absent #1 Nutrition Diagnosis Inadequate oral intake Etiology pt reports no appetite As Evidenced by Signs and Symptoms eating 50% of meals Is patient on ventilator? No Is Patient Ambulatory and/or Out of Bed No REE-([facility]-confined to bed) 1514.940 Calculation Used for Recommendations [facility] Additional Notes Protein: 60-72 g (1-1.2 g/kg) Fluid: 1 ml/kcal Nutrition Intervention Change Diet Order: Continue current Add Supplement/Snack (indicate name/kcal Ensure Enlive Vanilla one /protein ) daily Provides kCal: 350 Provides Protein (gm) 20 Goal #1 Meet at least 75-100% of needs via PO and ONS intake Anticipated Discharge Needs: Regular Follow-Up By: 07/08/18 Additional Comments F/U: PO intake and ONS intake
--- NOTE | 2018-07-07 13:52 | Progress Note ---
Assessment and Plan - Patient Problems (1) Amphetamine abuse Current Visit: Yes Status: Acute (2) Delivery by emergency section Current Visit: Yes Status: Acute Plan to address problem: Doing well postop. Incision intact surgery-jordan patient stable enough for discharge (3) Marijuana abuse Current Visit: Yes Status: Acute (4) Sepsis Current Visit: Yes Status: Acute Qualifiers: Sepsis type: sepsis due to unspecified organism Qualified Code(s): A41.9 - Sepsis, unspecified organism Plan to address problem: Continue IMCU management by hospitalist Subjective Date of service: 07/07/18 Patient Reports: Positive: no new complaints, feels better, tolerating a regular diet, voiding w/o difficulty Objective Vital Signs - 12hr 07/07/18 07/07/18 07/07/18 02:01 02:11 02:21 Temperature Pulse Rate 97 H 96 H Pulse Rate [ Bilateral Throughout] Pulse Rate [ From Monitor] Respiratory Rate Respiratory Rate [Bilateral Throughout] Blood Pressure O2 Sat by Pulse 99 100 100 Oximetry 07/07/18 07/07/18 07/07/18 02:31 02:41 02:51 Temperature Pulse Rate 95 H 93 H Pulse Rate [ Bilateral Throughout] Pulse Rate [ From Monitor] Respiratory 26 H Rate Respiratory Rate [Bilateral Throughout] Blood Pressure O2 Sat by Pulse 100 100 100 Oximetry 07/07/18 07/07/18 07/07/18 03:01 03:11 03:20 Temperature Pulse Rate 93 H 96 H 98 H Pulse Rate [ Bilateral Throughout] Pulse Rate [ From Monitor] Respiratory 19 22 22 Rate Respiratory Rate [Bilateral Throughout] Blood Pressure O2 Sat by Pulse 100 100 100 Oximetry 07/07/18 07/07/18 07/07/18 03:31 03:41 03:51 Temperature Pulse Rate 91 H 92 H 97 H Pulse Rate [ Bilateral Throughout] Pulse Rate [ From Monitor] Respiratory 20 18 19 Rate Respiratory Rate [Bilateral Throughout] Blood Pressure O2 Sat by Pulse 99 98 98 Oximetry 07/07/18 07/07/18 07/07/18 04:00 04:01 04:11 Temperature 101.2 F H Pulse Rate 102 H 101 H Pulse Rate [ Bilateral Throughout] Pulse Rate [ 96 H From Monitor] Respiratory 20 19 24 Rate Respiratory Rate [Bilateral Throughout] Blood Pressure O2 Sat by Pulse 98 98 85 Oximetry 07/07/18 07/07/18 07/07/18 04:21 04:31 04:41 Temperature Pulse Rate 105 H 103 H 98 H Pulse Rate [ Bilateral Throughout] Pulse Rate [ From Monitor] Respiratory 22 17 21 Rate Respiratory Rate [Bilateral Throughout] Blood Pressure O2 Sat by Pulse 90 96 94 Oximetry 07/07/18 07/07/18 07/07/18 04:51 05:00 05:11 Temperature Pulse Rate 98 H 98 H 96 H Pulse Rate [ Bilateral Throughout] Pulse Rate [ From Monitor] Respiratory 19 18 17 Rate Respiratory Rate [Bilateral Throughout] Blood Pressure O2 Sat by Pulse 93 93 94 Oximetry 07/07/18 07/07/18 07/07/18 05:20 05:31 05:41 Temperature Pulse Rate 95 H 94 H 111 H Pulse Rate [ Bilateral Throughout] Pulse Rate [ From Monitor] Respiratory 17 21 19 Rate Respiratory Rate [Bilateral Throughout] Blood Pressure O2 Sat by Pulse 96 95 93 Oximetry 07/07/18 07/07/18 07/07/18 05:51 06:01 06:11 Temperature Pulse Rate 96 H 90 95 H Pulse Rate [ Bilateral Throughout] Pulse Rate [ From Monitor] Respiratory 17 16 19 Rate Respiratory Rate [Bilateral Throughout] Blood Pressure O2 Sat by Pulse 98 99 99 Oximetry 07/07/18 07/07/18 07/07/18 06:21 06:31 06:41 Temperature Pulse Rate 96 H 85 91 H Pulse Rate [ Bilateral Throughout] Pulse Rate [ From Monitor] Respiratory 18 16 15 Rate Respiratory Rate [Bilateral Throughout] Blood Pressure 122/84 122/84 O2 Sat by Pulse 99 100 98 Oximetry 07/07/18 07/07/18 07/07/18 06:51 07:00 07:11 Temperature Pulse Rate 88 92 H 102 H Pulse Rate [ Bilateral Throughout] Pulse Rate [ From Monitor] Respiratory 17 18 19 Rate Respiratory Rate [Bilateral Throughout] Blood Pressure 122/84 124/84 122/84 O2 Sat by Pulse 100 96 99 Oximetry 07/07/18 07/07/18 07/07/18 07:21 07:31 07:41 Temperature Pulse Rate 94 H 90 86 Pulse Rate [ Bilateral Throughout] Pulse Rate [ From Monitor] Respiratory 16 17 16 Rate Respiratory Rate [Bilateral Throughout] Blood Pressure 122/84 122/84 122/84 O2 Sat by Pulse 99 99 100 Oximetry 07/07/18 07/07/18 07/07/18 07:49 07:51 07:59 Temperature Pulse Rate 90 Pulse Rate [ 95 H 89 Bilateral Throughout] Pulse Rate [ From Monitor] Respiratory 16 Rate Respiratory 16 18 Rate [Bilateral Throughout] Blood Pressure 122/84 O2 Sat by Pulse 100 Oximetry 07/07/18 07/07/18 07/07/18 08:00 08:11 08:21 Temperature Pulse Rate 88 94 H 89 Pulse Rate [ Bilateral Throughout] Pulse Rate [ 98 H From Monitor] Respiratory 21 17 16 Rate Respiratory Rate [Bilateral Throughout] Blood Pressure 135/91 135/91 135/91 O2 Sat by Pulse 98 98 99 Oximetry 07/07/18 07/07/18 07/07/18 08:31 08:41 08:51 Temperature Pulse Rate 102 H 110 H 103 H Pulse Rate [ Bilateral Throughout] Pulse Rate [ From Monitor] Respiratory 22 18 16 Rate Respiratory Rate [Bilateral Throughout] Blood Pressure 135/91 135/91 135/91 O2 Sat by Pulse 98 99 99 Oximetry 07/07/18 07/07/18 07/07/18 09:00 09:11 09:21 Temperature Pulse Rate 96 H 94 H 94 H Pulse Rate [ Bilateral Throughout] Pulse Rate [ From Monitor] Respiratory 19 17 17 Rate Respiratory Rate [Bilateral Throughout] Blood Pressure 123/85 123/85 123/85 O2 Sat by Pulse 95 98 98 Oximetry 07/07/18 07/07/18 07/07/18 09:27 09:31 09:41 Temperature Pulse Rate 94 H 115 H Pulse Rate [ Bilateral Throughout] Pulse Rate [ From Monitor] Respiratory 17 15 Rate Respiratory Rate [Bilateral Throughout] Blood Pressure 123/85 123/85 O2 Sat by Pulse 99 99 96 Oximetry 07/07/18 07/07/18 07/07/18 09:51 10:01 10:11 Temperature Pulse Rate 104 H 119 H 129 H Pulse Rate [ Bilateral Throughout] Pulse Rate [ From Monitor] Respiratory 13 19 18 Rate Respiratory Rate [Bilateral Throughout] Blood Pressure 123/85 123/85 123/85 O2 Sat by Pulse 97 93 92 Oximetry 07/07/18 07/07/18 07/07/18 10:21 10:31 10:41 Temperature Pulse Rate Pulse Rate [ Bilateral Throughout] Pulse Rate [ From Monitor] Respiratory Rate Respiratory Rate [Bilateral Throughout] Blood Pressure 123/85 123/85 123/85 O2 Sat by Pulse 94 94 94 Oximetry 07/07/18 07/07/18 07/07/18 10:51 11:01 11:11 Temperature Pulse Rate 99 H 96 H Pulse Rate [ Bilateral Throughout] Pulse Rate [ From Monitor] Respiratory 20 18 Rate Respiratory Rate [Bilateral Throughout] Blood Pressure 123/85 103/82 103/82 O2 Sat by Pulse 91 98 100 Oximetry 07/07/18 07/07/18 07/07/18 11:21 11:31 11:41 Temperature Pulse Rate 108 H 99 H 106 H Pulse Rate [ Bilateral Throughout] Pulse Rate [ From Monitor] Respiratory 17 19 23 Rate Respiratory Rate [Bilateral Throughout] Blood Pressure 103/82 103/82 103/82 O2 Sat by Pulse 100 98 100 Oximetry 07/07/18 07/07/18 07/07/18 11:51 12:00 12:11 Temperature 98 F Pulse Rate 102 H 95 H 107 H Pulse Rate [ Bilateral Throughout] Pulse Rate [ 98 H From Monitor] Respiratory 25 H 19 22 Rate Respiratory Rate [Bilateral Throughout] Blood Pressure 103/82 133/84 133/84 O2 Sat by Pulse 99 98 99 Oximetry 07/07/18 07/07/18 12:21 12:31 Temperature Pulse Rate 108 H 101 H Pulse Rate [ Bilateral Throughout] Pulse Rate [ From Monitor] Respiratory 19 25 H Rate Respiratory Rate [Bilateral Throughout] Blood Pressure 133/84 133/84 O2 Sat by Pulse 99 99 Oximetry - Abdomen soft, wound (intact) - Labs 07/05/18 10:03 07/05/18 09:38
[2018-07-08] MEDS: TYLENOL PO PRN (00:22)
[2018-07-08] MEDS: PERCOCET 5/325 PO PRN ×2 (05:40→17:09)
[2018-07-08] MEDS: FLAGYL 500 MG/100 ML 500 MG/100 ML BAG IV SCH ×3 (05:42→22:07)
[2018-07-08] MEDS: MAXIPIME/NS 2 GM/100 ML 2 GM/100 ML BAG IV SCH ×3 (06:51→22:07)
[2018-07-08] MEDS: PROVENTIL IH SCH ×2 (07:36→13:34)
--- NOTE | 2018-07-08 08:44 | Progress Note ---
Assessment and Plan - Patient Problems (1) Febrile illness Current Visit: Yes Status: Acute Plan to address problem: Prevotella bacteremia: Blood culture 07/03/2018 Prevotella loescheii 2 of 4 bottles 2 of 4 bottles. Repeat blood culture 07/04/2018 negative so far. Unclear source ? placenta abruption/recent C section, Prevotella it is usually a vaginal or bowel gorge. Flagyl IV added yesterday. No obvious evidence of endometritis at this time (2) Wound dehiscence, Current Visit: Yes Status: Acute Plan to address problem: Wound culture obtained Wound/contemporary or modern dancer consulted. Incision dressed with 4x4 gauze and ABD pad for now (3) Pneumonia Current Visit: Yes Status: Acute (4) Delivery by emergency section Current Visit: Yes Status: Acute (5) Anemia Current Visit: Yes Status: Acute Qualifiers: Other causes of anemia: acute posthemorrhagic (6) Placental abruption Current Visit: Yes Status: Acute Qualifiers: Trimester: third trimester Qualified Code(s): O45.93 - Premature separation of placenta, unspecified, third trimester (7) Amphetamine abuse Current Visit: Yes Status: Acute (8) Marijuana abuse Current Visit: Yes Status: Acute (9) Tobacco smoking complicating Current Visit: Yes Status: Acute (10) 30 weeks gestation of Current Visit: Yes Status: Acute Subjective - Subjective Date of service: 07/08/18 Principal diagnosis: postop day #8; s/p emergency c/s, abruption, + UDS, transfusion, sepsis Interval history: Resting in bed, States she went to urinate and coughed and noted drainage from her incision. Minimal lochia Patient reports: appetite normal, voiding normally, pain well controlled Objective - Vital Signs Latest vital signs: Vital Signs Temp Pulse Pulse Pulse Resp Resp BP 07/08/18 07:38 07/08/18 07:37 85 17 07/08/18 07:36 83 16 07/08/18 06:11 95 H 18 12707/08/18 06:01 92 H 21 12707/08/18 05:51 100 H 12 12707/08/18 05:41 107 H 16 12707/08/18 05:31 94 H 19 07/08/18 05:21 113 H 19 12707/08/18 05:11 114 H 40 H 127/89 07/08/18 05:01 105 H 24 127/89 07/08/18 04:51 96 H 18 127/89 07/08/18 04:41 94 H 19 127/89 07/08/18 04:31 95 H 18 127/89 07/08/18 04:21 100 H 18 127/89 07/08/18 04:11 107 H 20 127/89 07/08/18 04:01 104 H 22 127/89 07/08/18 04:00 101.5 F H 101 H 18 07/08/18 03:51 99 H 19 127/89 07/08/18 03:41 107 H 20 127/89 07/08/18 03:31 98 H 18 127/89 07/08/18 03:21 101 H 18 127/89 07/08/18 03:11 97 H 17 127/89 07/08/18 03:01 103 H 19 127/89 07/08/18 02:51 103 H 18 127/89 07/08/18 02:41 109 H 17 127/89 07/08/18 02:31 95 H 22 127/89 07/08/18 02:20 103 H 19 127/89 07/08/18 02:11 108 H 18 127/89 07/08/18 02:01 106 H 19 127/89 07/08/18 01:51 105 H 19 127/89 07/08/18 01:41 104 H 20 127/89 07/08/18 01:31 116 H 21 127/89 07/08/18 01:21 111 H 18 127/89 07/08/18 01:11 99 H 15 127/89 07/08/18 01:01 100 H 18 127/89 07/08/18 00:51 103 H 18 127/89 07/08/18 00:41 100 H 17 127/89 07/08/18 00:31 113 H 16 127/89 07/08/18 00:21 96 H 18 127/89 07/08/18 00:11 109 H 22 127/89 07/08/18 00:01 101 H 18 127/89 07/08/18 00:00 101.5 F H 76 15 07/07/18 23:51 99 H 17 127/89 07/07/18 23:41 116 H 22 127/89 07/07/18 23:31 100 H 19 127/89 07/07/18 23:21 99 H 18 127/89 07/07/18 23:11 100 H 19 127/89 07/07/18 23:01 113 H 21 127/89 07/07/18 22:51 111 H 20 127/89 07/07/18 22:41 115 H 22 127/89 07/07/18 22:31 120 H 20 127/89 07/07/18 22:21 123 H 28 H 127/89 07/07/18 22:11 134 H 20 127/89 07/07/18 22:01 115 H 14 127/89 07/07/18 21:51 134 H 21 127/89 07/07/18 21:41 126 H 12 127/89 07/07/18 21:31 118 H 30 H 127/89 07/07/18 21:21 115 H 16 127/89 07/07/18 21:11 118 H 19 127/89 07/07/18 21:01 106 H 21 127/89 07/07/18 20:51 122 H 19 127/89 07/07/18 20:41 116 H 20 127/89 07/07/18 20:31 113 H 21 127/89 07/07/18 20:21 112 H 20 121/81 07/07/18 20:10 111 H 26 H 93/60 07/07/18 20:01 118 H 26 H 133/84 07/07/18 20:00 99.3 F 106 H 14 07/07/18 19:51 110 H 19 133/84 07/07/18 19:41 118 H 19 133/84 07/07/18 19:31 108 H 23 133/84 07/07/18 19:24 108 H 21 07/07/18 19:21 98 H 21 133/84 07/07/18 19:11 95 H 22 133/84 07/07/18 19:10 07/07/18 19:09 106 H 21 07/07/18 19:01 105 H 13 133/84 07/07/18 18:51 104 H 21 133/84 07/07/18 18:41 98 H 19 133/84 07/07/18 18:31 100 H 18 133/84 02/28/19 18:21 102 H 22 133/84 07/07/18 18:17 102 H 18 133/84 07/07/18 18:11 100 H 17 133/84 07/07/18 18:01 108 H 22 133/84 07/07/18 17:51 101 H 20 133/84 07/07/18 17:41 99 H 17 133/84 07/07/18 17:31 106 H 20 133/84 07/07/18 17:21 103 H 16 133/84 07/07/18 17:11 96 H 16 133/84 07/07/18 17:01 94 H 16 133/84 07/07/18 16:51 107 H 17 133/84 07/07/18 16:41 105 H 14 133/84 07/07/18 16:31 114 H 22 133/84 07/07/18 16:21 97 H 18 133/84 07/07/18 16:11 105 H 13 133/84 07/07/18 16:01 112 H 17 133/84 07/07/18 16:00 97.5 F L 98 H 18 07/07/18 15:51 103 H 17 133/84 07/07/18 15:41 96 H 16 133/84 07/07/18 15:30 99 H 14 103/82 07/07/18 15:21 102 H 17 133/84 07/07/18 15:11 102 H 17 133/84 07/07/18 15:01 111 H 21 133/84 07/07/18 14:51 96 H 105 H 17 17 133/84 07/07/18 14:41 97 H 103 H 18 18 133/84 07/07/18 14:31 100 H 22 133/84 07/07/18 14:21 97 H 18 133/84 07/07/18 14:11 100 H 18 133/84 07/07/18 14:01 100 H 18 133/84 07/07/18 13:51 105 H 25 H 133/84 07/07/18 13:41 102 H 19 133/84 07/07/18 13:31 104 H 19 133/84 07/07/18 13:21 101 H 20 133/84 07/07/18 13:11 100 H 18 133/84 07/07/18 13:01 99 H 19 133/84 07/07/18 12:51 103 H 17 133/84 02/28/19 12:41 99 H 19 133/84 07/07/18 12:31 101 H 25 H 133/84 07/07/18 12:21 108 H 19 133/84 07/07/18 12:11 107 H 22 133/84 07/07/18 12:00 98 F 95 H 98 H 19 133/84 07/07/18 11:51 102 H 25 H 103/82 07/07/18 11:41 106 H 23 103/82 07/07/18 11:31 99 H 19 103/82 07/07/18 11:21 108 H 17 103/82 07/07/18 11:11 96 H 18 103/82 07/07/18 11:01 99 H 20 103/82 07/07/18 10:51 123/85 07/07/18 10:41 123/85 07/07/18 10:31 123/85 07/07/18 10:21 123/85 07/07/18 10:11 129 H 18 123/85 07/07/18 10:01 119 H 19 123/85 07/07/18 09:51 104 H 13 123/85 07/07/18 09:41 115 H 15 123/85 07/07/18 09:31 94 H 17 123/85 07/07/18 09:27 07/07/18 09:21 94 H 17 123/85 07/07/18 09:11 94 H 17 123/85 07/07/18 09:00 96 H 19 123/85 07/07/18 08:51 103 H 16 135/91 Pulse Ox 07/08/18 07:38 95 07/08/18 07:37 07/08/18 07:36 07/08/18 06:11 98 07/08/18 06:01 96 07/08/18 05:51 98 07/08/18 05:41 99 07/08/18 05:31 99 07/08/18 05:21 98 07/08/18 05:11 99 07/08/18 05:01 99 07/08/18 04:51 99 07/08/18 04:41 99 07/08/18 04:31 99 07/08/18 04:21 99 07/08/18 04:11 99 07/08/18 04:01 100 07/08/18 04:00 99 07/08/18 03:51 99 07/08/18 03:41 99 07/08/18 03:31 99 07/08/18 03:21 99 07/08/18 03:11 99 07/08/18 03:01 98 07/08/18 02:51 98 07/08/18 02:41 98 07/08/18 02:31 100 07/08/18 02:20 99 07/08/18 02:11 98 07/08/18 02:01 99 07/08/18 01:51 98 07/08/18 01:41 99 07/08/18 01:31 99 07/08/18 01:21 99 07/08/18 01:11 100 07/08/18 01:01 98 07/08/18 00:51 100 07/08/18 00:41 100 07/08/18 00:31 100 07/08/18 00:21 99 07/08/18 00:11 99 07/08/18 00:01 99 07/08/18 00:00 99 07/07/18 23:51 98 07/07/18 23:41 100 07/07/18 23:31 100 07/07/18 23:21 100 07/07/18 23:11 100 07/07/18 23:01 95 07/07/18 22:51 94 07/07/18 22:41 95 07/07/18 22:31 95 07/07/18 22:21 93 07/07/18 22:11 93 07/07/18 22:01 96 07/07/18 21:51 89 07/07/18 21:41 93 07/07/18 21:31 99 07/07/18 21:21 98 07/07/18 21:11 98 07/07/18 21:01 97 07/07/18 20:51 99 07/07/18 20:41 92 07/07/18 20:31 91 07/07/18 20:21 93 07/07/18 20:10 94 07/07/18 20:01 91 07/07/18 20:00 98 07/07/18 19:51 93 07/07/18 19:41 98 07/07/18 19:31 95 07/07/18 19:24 07/07/18 19:21 100 07/07/18 19:11 98 07/07/18 19:10 100 07/07/18 19:09 07/07/18 19:01 99 07/07/18 18:51 99 07/07/18 18:41 99 07/07/18 18:31 98 07/07/18 18:21 99 07/07/18 18:17 99 07/07/18 18:11 99 07/07/18 18:01 99 07/07/18 17:51 98 07/07/18 17:41 99 07/07/18 17:31 99 07/07/18 17:21 98 07/07/18 17:11 99 07/07/18 17:01 98 07/07/18 16:51 99 07/07/18 16:41 98 07/07/18 16:31 96 07/07/18 16:21 98 07/07/18 16:11 96 07/07/18 16:01 99 07/07/18 16:00 99 07/07/18 15:51 98 07/07/18 15:41 98 07/07/18 15:30 98 07/07/18 15:21 97 07/07/18 15:11 99 07/07/18 15:01 97 07/07/18 14:51 100 07/07/18 14:41 98 07/07/18 14:31 98 07/07/18 14:21 98 07/07/18 14:11 97 07/07/18 14:01 98 07/07/18 13:51 98 07/07/18 13:41 99 07/07/18 13:31 99 07/07/18 13:21 99 07/07/18 13:11 99 07/07/18 13:01 98 07/07/18 12:51 98 07/07/18 12:41 98 07/07/18 12:31 99 07/07/18 12:21 99 07/07/18 12:11 99 07/07/18 12:00 98 07/07/18 11:51 99 07/07/18 11:41 100 07/07/18 11:31 98 07/07/18 11:21 100 07/07/18 11:11 100 07/07/18 11:01 98 07/07/18 10:51 91 07/07/18 10:41 94 07/07/18 10:31 94 07/07/18 10:21 94 07/07/18 10:11 92 07/07/18 10:01 93 07/07/18 09:51 97 07/07/18 09:41 96 07/07/18 09:31 99 07/07/18 09:27 99 07/07/18 09:21 98 07/07/18 09:11 98 07/07/18 09:00 95 07/07/18 08:51 99 Intake and Output 07/07/18 07/08/18 07/08/18 22:59 06:59 14:59 Intake Total 240 200 Balance 240 200 Intake: IV 200 FLAGYL 500 MG/100 ML 500 100 mg In 100 ml @ 100 mls/hr IV Q8HR [facility] Rx#: [id number] MAXIPIME/NS 2 GM/100 ML 2 100 gm In 100 ml @ 200 mls/ hr IV Q8HR [facility] Rx#: [id number] Oral 240 Other: Total, Intake Amount 240 Voiding Method Toilet Toilet # Voids Void 1 - Exam Breasts: Present: normal. Absent: engorged Uterus: Present: fundal height at umbilicus. Absent: tenderness Extremities: Present: normal. Absent: tenderness, edema Incision: Present: erythematous, other (defect (L) edge ~5cm, fascia intact. Culture obtained. )
[2018-07-08] MEDS: HABITROL TD SCH (10:08)
[2018-07-08] MEDS: ZITHROMAX PO SCH (10:16)
[2018-07-08] MEDS: TAMIFLU PO SCH ×2 (10:16→23:07)
--- NOTE | 2018-07-08 10:59 | Progress Note ---
Assessment and Plan Cultures: Blood culture 07/03/2018 Prevotella loescheii 2 of 4 bottles Blood culture 07/04/2018 negative so far Urine culture 07/03/2018 10-100K multiple sp Blood culture 07/06/2018 negative so far Assessment: 28 y/o female with a history of tobacco, marihuana, meth abuse; admitted on 06/30/2018 at 30 weeks of , due to acute onset of copious vaginal bleed. Patient was found to have placental abruption and underwent emergent on 06/30/2018: 1) Sepsis: Still fever unclear reason ? from Prevotella bacteremia started on flagyl versus Influenza. Fever is not better. Not Present on admission, manifested by fever, tachycardia. 2) Prevotella bacteremia: Blood culture 07/03/2018 Prevotella loescheii 2 of 4 bottles 2 of 4 bottles. Repeat blood culture 07/04/2018 negative so far. Unclear source ? placenta abruption/recent C section, Prevotella it is usually a vaginal or bowel gorge. Flagyl IV added on 07/06 and still fever. Now wound became dehiscent. 3) Bilateral pneumonia: Patient has 3 small kids and they have been sick with "cold symptoms". She reports that she and her partner both has been coughing up for 1-2 weeks. CXR initial negative. CTA chest 07/03 showed diffuse pneumonia with the greater involvement in the left lower lobe, no evidence of acute PE, moderate amount of free fluid in the left upper quadrant of the abdomen associated with omental graying. Likely CAP versus post-influenza pneumonia versus HAP. 4) UTI: UA 06/30 neg. Repeat UA 07/03 moderate LE, wbc 110. ?riojas-associated. Urine culture 07/03/2018 10-100K multiple sp Recommendations: - Appreciate OB Dr Chapa sending wound cultures - follow-up repeat blood cultures - continue cefepime D4 to cover CAP/HAP/UTI - continue flagyl D3 cover Prevotella - continue azithromycin D3 to cover CAP/atypicals - f/u influenza antigen and PCR - pending - continue tamiflu - if fever continues will request abd/pelvis CT eval for collections Will follow. Sailaja Puentes MD Infectious Diseases [employer] [facility] M [phone] O [phone] Subjective Date of service: 07/08/18 Principal diagnosis: postop day #8; s/p emergency c/s, abruption, + UDS, transfusion, sepsis Interval history: Remains c/o high fever at 101.8. Reports that after coughing surgical wound opened and sero-sanguinous drainage seen. No pain except for surgical site. Review of Systems: General: + fever, chills Cutaneous: no rash, pruritus Respiratory: no cough, chest pain, SOB Gastrointestinal: no nausea, vomiting, diarrhea \\ Objective - Exam Narrative Exam: General appearance: Alert in NAD, conversant Eyes: anicteric sclerae, moist conjunctivae; no lid-lag; PERRLA HENT: Atraumatic; oropharynx clear with moist mucous membranes and no mucosal ulcerations/no oral thrush; normal hard and soft palate. Normal external ears. Neck: Trachea midline; supple, no thyromegaly or lymphadenopathy Lungs: scattered brad crackles CV: tachycardic Abdomen: Soft, non-tender; Csection wound open to left side with sero-sanguine ous Extremities: No peripheral edema or extremity lymphadenopathy Skin: Normal temperature, turgor and texture; no rash, ulcers or subcutaneous nodules Psych: Appropriate affect, alert and oriented to person, place and time. Neuro: alert and oriented x 3. Moving all extermities - Constitutional Vitals: Vital Signs Temp Pulse Resp BP Pulse Ox 97.6 F 85 17 127/89 95 07/08/18 08:00 07/08/18 07:37 07/08/18 07:37 07/08/18 06:11 07/08/18 07:38 Temperature -Last 24 Hours Temperature 97.6 F Temperature 101.5 F Temperature 101.5 F Temperature 99.3 F Temperature 97.5 F Temperature 98 F - Labs CBC & Chem 7: 07/05/18 10:03 07/05/18 09:38
--- NOTE | 2018-07-08 21:19 | Progress Note ---
Assessment and Plan Assessment and plan: Patient is a 28 yo woman with a history of tobacco and illegal drug use who presented to [facility] ED with heavy vaginal bleeding and was admitted by INTERNATIONAL RECRUITER, Dr. Mathur, on 06/30/18 at 20 weeks . She was found to have Placentral Abruption and was taken to surgery. Patient became febrile and it appears patient was transferred to the [facility] under the Hospitalist service on 07/04/18. Also, She was found to have Amphetamines and THC on admission Urine drug screen * Temp of 100.5, tachycardic, tachypenic but nomotensive * D-Dimer elevated at 1719, normal pro-bnp today, UA showing pyuria * CTA chest Impression: Finding are consistent with diffuse pneumonia with the greater involvement in the left lower lobe, no evidence of acute PE, moderate amount of free fluid in the left upper quadrant of the abdomen associated with omental graying, correlation with surgical history is recommended. Cultures Blood culture 07/03/2018 Prevotella loescheii 2 of 4 bottles Blood culture 07/04/2018 negative so far Urine culture 07/03/2018 10-100K multiple sp -Sepsis, UTI and Bilateral pneumonia, HR 101 and WBC 3.2, so SIRS with organ dysfunction was poa: iv rocephin initiated, consulted ID, follow blood culture which is showing GNR, so i added IV Cefepime and ID added azithomycin -Prevotella loescheii bacteremia: added Flagyl -Elevated D-Dimer, such a wide differential diagnosis in this patient: CTA chest shows diffuse pneumonia LLL, no PE -Acute blood loss anemia due to Placental Abruption s/p 2 units transfused so far, h/h stable -Tobacco and Amphetamine in UDS: counseling done -Severe malnutrition, albumin 1.9, most likely poa: consult Electromedical Equipment Technician, add regular diet -DVT prophylaxis: Hold A/C due to recent bleeding, encourage ambulation -Still febrile: ID is following, added tamiflu, treat with Ibuprofen for high fevers History Interval history: Patient was seen and examined. Follow-up on current diagnosis of sepsis. SOB resolved, she is walking around room without problems. Overnight uneventful febrile. Patient denies any chest pain, nausea/vomiting or severe headaches. Imaging, nursing note, chart, labs and old chart reviewed. Discussed with patient. Hospitalist Physical - Physical exam Narrative exam: Gen: ill appearing, WDWN, NAD, Awake, Alert, Orientated HEENT: NCAT, EOMI, PERRL, OP Clear Neck: supple, no adenopathy, no thyromegaly, no JVD CVS/Heart: regular tachycardia, normal S1S2, pulses present bilaterally Chest/Lungs: tachypnea resolved, coarse bs bilaterally, Symmetrical chest expansion, good air entry bilaterally GI/Abdomen: soft, NTND, present bowel sounds, no guarding or rebound, suzanne just removed, wound looks c/d/i /Bladder: no suprapubic tenderness, no CVA or paraspinal tenderness Extermity/Skin: no c/c/e, no obvious rash MSK: FROM x 4 Neuro: CN 2-12 grossly intact, no new focal deficits Psych: calm - Constitutional Vitals: Temp Pulse Resp BP Pulse Ox 99.4 F 100 H 26 H 138/82 92 07/08/18 20:00 07/08/18 20:00 07/08/18 20:00 07/08/18 20:00 07/08/18 20:00 General appearance: Present: other (diaphoretic, lethargic, ) Results - Labs CBC & Chem 7: 07/05/18 10:03 07/05/18 09:38 Labs: Laboratory Last Values WBC 9.8 K/mm3 (4.5-11.0) 07/05/18 10:03 RBC 3.18 M/mm3 (3.65-5.03) L 07/05/18 10:03 Hgb 10.3 gm/dl (10.1-14.3) 07/05/18 10:03 Hct 29.1 % (30.3-42.9) L 07/05/18 10:03 MCV 92 fl (79-97) 07/05/18 10:03 MCH 32 pg (28-32) 07/05/18 10:03 MCHC 35 % (30-34) H 07/05/18 10:03 RDW 13.9 % (13.2-15.2) 07/05/18 10:03 Plt Count 250 K/mm3 (140-440) 07/05/18 10:03 Lymph % (Auto) 25.8 % (13.4-35.0) 06/30/18 18:40 [place] % (Auto) 1.5 % (0.0-7.3) 06/30/18 18:40 Eos % (Auto) 1.5 % (0.0-4.3) 06/30/18 18:40 Baso % (Auto) 0.8 % (0.0-1.8) 06/30/18 18:40 Lymph # 0.8 K/mm3 (1.2-5.4) L 06/30/18 18:40 [place] # 0.0 K/mm3 (0.0-0.8) 06/30/18 18:40 Eos # 0.0 K/mm3 (0.0-0.4) 06/30/18 18:40 Baso # 0.0 K/mm3 (0.0-0.1) 06/30/18 18:40 Add Manual Diff Complete 07/05/18 10:03 Total Counted 100 07/05/18 10:03 Seg Neutrophils % 70.4 % (40.0-70.0) H 06/30/18 18:40 Seg Neuts % (Manual) 92.0 % (40.0-70.0) H 07/05/18 10:03 Band Neutrophils % 0 % 07/05/18 10:03 Lymphocytes % (Manual) 7.0 % (13.4-35.0) L 07/05/18 10:03 Reactive Lymphs % (Man) 0 % 07/05/18 10:03 Monocytes % (Manual) 1.0 % (0.0-7.3) 07/05/18 10:03 Eosinophils % (Manual) 0 % (0.0-4.3) 07/05/18 10:03 Basophils % (Manual) 0 % (0.0-1.8) 07/05/18 10:03 Metamyelocytes % 0 % 07/05/18 10:03 Myelocytes % 0 % 07/05/18 10:03 Promyelocytes % 0 % 07/05/18 10:03 Blast Cells % 0 % 07/05/18 10:03 Nucleated RBC % Not Reportable 07/05/18 10:03 Seg Neutrophils # 2.3 K/mm3 (1.8-7.7) 06/30/18 18:40 Seg Neutrophils # Man 9.0 K/mm3 (1.8-7.7) H 07/05/18 10:03 Band Neutrophils # 0.0 K/mm3 07/05/18 10:03 Lymphocytes # (Manual) 0.7 K/mm3 (1.2-5.4) L 07/05/18 10:03 Abs React Lymphs (Man) 0.0 K/mm3 07/05/18 10:03 Monocytes # (Manual) 0.1 K/mm3 (0.0-0.8) 07/05/18 10:03 Eosinophils # (Manual) 0.0 K/mm3 (0.0-0.4) 07/05/18 10:03 Basophils # (Manual) 0.0 K/mm3 (0.0-0.1) 07/05/18 10:03 Metamyelocytes # 0.0 K/mm3 07/05/18 10:03 Myelocytes # 0.0 K/mm3 07/05/18 10:03 Promyelocytes # 0.0 K/mm3 07/05/18 10:03 Blast Cells # 0.0 K/mm3 07/05/18 10:03 WBC Morphology Not Reportable 07/05/18 10:03 Hypersegmented Neuts Not Reportable 07/05/18 10:03 Hyposegmented Neuts Not Reportable 07/05/18 10:03 Hypogranular Neuts Not Reportable 07/05/18 10:03 Smudge Cells Not Reportable 07/05/18 10:03 Toxic Granulation Not Reportable 07/05/18 10:03 Toxic Vacuolation Not Reportable 07/05/18 10:03 Dohle Bodies Not Reportable 07/05/18 10:03 Pelger-Huet Anomaly Not Reportable 07/05/18 10:03 Ronak Rods Not Reportable 07/05/18 10:03 Platelet Estimate Consistent w auto 07/05/18 10:03 Clumped Platelets Not Reportable 07/05/18 10:03 Plt Clumps, EDTA Not Reportable 07/05/18 10:03 Large Platelets Not Reportable 07/05/18 10:03 Giant Platelets Not Reportable 07/05/18 10:03 Platelet Satelliting Not Reportable 07/05/18 10:03 Plt Morphology Comment Not Reportable 07/05/18 10:03 RBC Morphology Not Reportable 07/05/18 10:03 Dimorphic RBCs Not Reportable 07/05/18 10:03 Polychromasia Not Reportable 07/05/18 10:03 Hypochromasia Not Reportable 07/05/18 10:03 Poikilocytosis Not Reportable 07/05/18 10:03 Anisocytosis 1+ 07/05/18 10:03 Microcytosis Not Reportable 07/05/18 10:03 Macrocytosis Not Reportable 07/05/18 10:03 Spherocytes Not Reportable 07/05/18 10:03 Pappenheimer Bodies Not Reportable 07/05/18 10:03 Sickle Cells Not Reportable 07/05/18 10:03 Target Cells Not Reportable 07/05/18 10:03 Tear Drop Cells Not Reportable 07/05/18 10:03 Ovalocytes Not Reportable 07/05/18 10:03 Helmet Cells Not Reportable 07/05/18 10:03 [place] Bodies Not Reportable 07/05/18 10:03 Lipan Rings Not Reportable 07/05/18 10:03 [place] Cells Not Reportable 07/05/18 10:03 Bite Cells Not Reportable 07/05/18 10:03 Crenated Cell Not Reportable 07/05/18 10:03 Elliptocytes Not Reportable 07/05/18 10:03 Acanthocytes (Spur) Not Reportable 07/05/18 10:03 Rouleaux Not Reportable 07/05/18 10:03 Hemoglobin C Crystals Not Reportable 07/05/18 10:03 Schistocytes Not Reportable 07/05/18 10:03 Malaria parasites Not Reportable 07/05/18 10:03 Ilya Bodies Not Reportable 07/05/18 10:03 Hem Pathologist Commnt No 07/05/18 10:03 PT 14.8 Sec. (12.2-14.9) 06/30/18 21:50 INR 1.09 (0.87-1.13) 06/30/18 21:50 APTT 27.9 Sec. (24.2-36.6) 06/30/18 21:50 D-Dimer 1719.47 ng/mlDDU (0-234) H 07/03/18 15:46 Sodium 135 mmol/L (137-145) L 07/05/18 09:38 Potassium 3.9 mmol/L (3.6-5.0) 07/05/18 09:38 Chloride 100.4 mmol/L (98-107) 07/05/18 09:38 Carbon Dioxide 22 mmol/L (22-30) 07/05/18 09:38 Anion Gap 17 mmol/L 07/05/18 09:38 BUN 11 mg/dL (7-17) 07/05/18 09:38 Creatinine 0.5 mg/dL (0.7-1.2) L 07/05/18 09:38 Estimated GFR > 60 ml/min 07/05/18 09:38 BUN/Creatinine Ratio 22 % 07/05/18 09:38 Glucose 94 mg/dL (65-100) 07/05/18 09:38 Lactic Acid 1.60 mmol/L (0.7-2.0) 07/03/18 21:23 Uric Acid 4.4 mg/dL (3.5-7.6) 06/30/18 21:50 Calcium 7.7 mg/dL (8.4-10.2) L 07/05/18 09:38 Total Bilirubin 0.50 mg/dL (0.1-1.2) 07/05/18 09:38 AST 13 units/L (5-40) 07/05/18 09:38 ALT 9 units/L (7-56) 07/05/18 09:38 Alkaline Phosphatase 100 units/L (35-129) 07/05/18 09:38 NT-Pro-B Natriuret Pep 423.7 pg/mL (0-450) 07/03/18 15:46 Total Protein 4.9 g/dL (6.3-8.2) L 07/05/18 09:38 Albumin 1.9 g/dL (3.9-5) L 07/05/18 09:38 Albumin/Globulin Ratio 0.6 % 07/05/18 09:38 Urine Color Valentine (Yellow) 07/03/18 15:50 Urine Turbidity Slightly-cloudy (Clear) 07/03/18 15:50 Urine pH 7.0 (5.0-7.0) 07/03/18 15:50 Ur Specific [place] 1.027 (1.003-1.030) 07/03/18 15:50 Urine Protein 100 mg/dl mg/dL (Negative) 07/03/18 15:50 Urine Glucose (UA) Neg mg/dL (Negative) 07/03/18 15:50 Urine Ketones Neg mg/dL (Negative) 07/03/18 15:50 Urine Blood Mod (Negative) 07/03/18 15:50 Urine Nitrite Neg (Negative) 07/03/18 15:50 Urine Bilirubin Neg (Negative) 07/03/18 15:50 Urine Urobilinogen < 2.0 mg/dL (<2.0) 07/03/18 15:50 Ur Leukocyte Esterase Mod (Negative) 07/03/18 15:50 Urine WBC (Auto) 110.0 /HPF (0.0-6.0) H 07/03/18 15:50 Urine RBC (Auto) 7.0 /HPF (0.0-6.0) 07/03/18 15:50 U Epithel Cells (Auto) 13.0 /HPF (0-13.0) 07/03/18 15:50 Urine Bacteria (Auto) 1+ /HPF (Negative) 07/03/18 15:50 Urine Mucus 3+ /HPF 07/03/18 15:50 Urine Yeast (Budding) Few /HPF 07/03/18 15:50 Urine Opiates Screen Presumptive negative 07/03/18 15:50 Urine Methadone Screen Presumptive negative 07/03/18 15:50 Ur Barbiturates Screen Presumptive negative 07/03/18 15:50 Ur Phencyclidine Scrn Presumptive negative 07/03/18 15:50 Ur Amphetamines Screen Presumptive negative 07/03/18 15:50 U Benzodiazepines Scrn Presumptive negative 07/03/18 15:50 Urine Cocaine Screen Presumptive negative 07/03/18 15:50 U Marijuana (THC) Screen Presumptive positive 07/03/18 15:50 Drugs of Abuse Note Disclamer 07/03/18 15:50 RPR Nonreactive (Nonreactive) 07/01/18 09:54 Influenza A (Rapid) Negative (Negative) 07/08/18 12:47 Influenza A (RT-PCR) Negative (Negative) 07/08/18 12:47 Influenza B (Rapid) Negative (Negative) 07/08/18 12:47 Influenza B (RT-PCR) Negative (Negative) 07/08/18 12:47 Blood Type A POSITIVE 06/30/18 18:40 Antibody Screen Negative 06/30/18 18:40 Crossmatch See Detail 06/30/18 18:40 Nutrition/Malnutrition Assess - Dietary Evaluation Nutrition/Malnutrition Findings: Nutrition Notes Start: 07/06/18 12:46 Freq: Status: Active Protocol: Document 07/08/18 15:20 RM (Rec: 07/08/18 15:27 RM [id number]) Nutrition Notes Initial or Follow up Reassessment Current Diagnosis Sepsis Other Pertinent Diagnosis Pneu, UTI, marijuana & amphetamine abuse, vaginal bleeding,wound dehiscence Current Diet Regular Labs/Tests Reviewed Pertinent Medications Reviewed Height 5 ft 1 in Weight 60.328 kg Outlook Body Weight (kg) 47.72 BMI 25.1 Subjective/Other Information Pt stated that her appetite is alright and that she eats 1/3 of her meals. Noted lunch at bedside with 1/3 eaten. Percent of energy/protein needs met: 51%/40% Burn Absent Trauma Absent #1 Nutrition Diagnosis Inadequate oral intake As Evidenced by Signs and Symptoms pt statement that she eats 1/3 of her meals Diagnosis Progress(for reassessment Worsened documentation) Is patient on ventilator? No Is Patient Ambulatory and/or Out of Bed No REE-([place]-confined to bed) 1514.940 Calculation Used for Recommendations [place] Additional Notes Protein: 72-90g (1.2-1.5 g/kg) Fluid: 1 ml/kcal Nutrition Intervention Change Diet Order: Continue current Add Supplement/Snack (indicate name/kcal Was not previosuly added. Add /protein ) Ensure Enlive Vanilla one daily Provides kCal: 350 Provides Protein (gm) 20 Goal #1 Meet at least 75-100% of needs via PO and ONS intake Anticipated Discharge Needs: Regular Follow-Up By: 07/12/18 Additional Comments Follow for PO and ONS intakes
[2018-07-09] MEDS: MAXIPIME/NS 2 GM/100 ML 2 GM/100 ML BAG IV SCH ×3 (06:02→23:44)
[2018-07-09] MEDS: FLAGYL 500 MG/100 ML 500 MG/100 ML BAG IV SCH ×3 (06:02→23:42)
[2018-07-09] MEDS: PERCOCET 5/325 PO PRN ×3 (06:07→21:13)
--- NOTE | 2018-07-09 09:00 | Progress Note ---
Assessment and Plan Pt crying and voicing concerns @ her children that are in the care of her mother. She also voices she is afraid because one of the FOC is now staying with her mom and kids. She denies that they are in danger but she is concerned she will not get to get them back when she is released. Pt voices that she still having sweats. Pt has not had an elevated BP since 07-08-18 @ 0400(101.5). Will voice pt concerns to RN. made aware of findings. Subjective - Subjective Date of service: 07/09/18 (Senior [employer] Adf Developer note) Principal diagnosis: postop day #9; s/p emergency c/s, abruption, + UDS, transfusion, sepsis Patient reports: appetite normal, voiding normally, pain well controlled, ambulating normally Objective - Vital Signs Latest vital signs: Vital Signs Temp Pulse Pulse Pulse Resp Resp BP 07/09/18 07:31 92 H 19 07/09/18 07:21 91 H 19 07/09/18 07:11 85 24 07/09/18 07:01 93 H 20 07/09/18 06:51 82 22 /07/09/18 06:41 87 20 /07/09/18 06:31 86 19 07/09/18 06:21 87 18 07/09/18 06:11 88 18 /07/09/18 06:01 94 H 18 /07/09/18 05:51 96 H 19 /07/09/18 05:41 89 19 111/07/09/18 05:31 87 20 111/07/09/18 05:21 90 20 111/07/09/18 05:11 92 H 18 111/07/09/18 05:01 90 7 L 07/09/18 04:51 91 H 18 111/07/09/18 04:41 89 18 111/07/09/18 04:31 84 18 111/07/09/18 04:21 93 H 20 111/07/09/18 04:11 93 H 19 /07/09/18 04:00 98.4 F 92 H 95 H 18 111/81 03/02/19 03:50 91 H 18 111/81 03/02/19 03:40 92 H 21 111/81 03/02/ 03:31 90 19 111/81 03/02/ 03:21 84 17 111/81 03/02/ 03:10 100 H 21 111/81 03// 03:01 98 H 21 111/81 03/02/ 02:50 94 H 19 111/81 03/02/ 02:41 94 H 18 111/81 03/02/ 02:31 90 19 111/81 03/02/ 02:21 86 18 111/81 03/06/28 02:11 78 17 111/81 03// 02:01 92 H 13 111/81 03// 01:51 80 16 111/81 03/06/28 01:41 80 15 111/81 /06/28 01:30 92 H 15 111/81 03// 01:21 95 H 11 L 111/81 /06/28 01:11 79 20 111/81 03/06/28 01:00 73 15 111/81 03/02/ 00:51 75 14 115/75 03/02/ 00:41 81 17 115/75 03// 00:31 68 13 115/75 /06/28 00:21 72 15 115/75 /06/28 00:10 75 14 124/84 07/09/18 00:00 98.3 F 76 93 H 19 115/75 07/08/18 23:51 77 15 114/81 03/05/28 23:41 77 15 114/81 07/08/18 23:31 77 15 114/81 03/05/28 23:21 78 15 114/81 07/08/18 23:11 75 15 114/81 /05/28 23:00 84 15 114/81 07/08/18 22:51 82 16 115/91 07/08/18 22:41 86 17 115/91 03 22:31 81 17 115/91 07/08/18 22:21 85 16 115/91 03 22:11 85 18 115/91 03 22:00 91 H 19 115/91 07/08/18 21:51 90 18 124/84 07/08/18 21:41 90 18 124/84 07/08/18 21:31 90 18 124/84 07/08/18 21:21 96 H 21 124/84 07/08/18 21:11 97 H 30 H 124/84 07/08/18 21:00 93 H 30 H 124/84 07/08/18 20:51 94 H 22 138/82 07/08/18 20:41 95 H 19 138/82 07/08/18 20:31 92 H 20 138/82 07/08/18 20:21 95 H 24 138/82 07/08/18 20:11 102 H 26 H 138/82 07/08/18 20:00 99.4 F 99 H 89 19 138/82 07/08/18 19:55 102 H 32 H 130/89 07/08/18 19:51 98 H 24 130/89 07/08/18 19:41 102 H 24 132/82 07/08/18 19:31 107 H 27 H 132/82 07/08/18 19:21 103 H 29 H 132/82 07/08/18 19:11 95 H 24 132/82 07/08/18 19:00 102 H 26 H 132/82 07/08/18 18:51 105 H 22 132/82 07/08/18 18:41 104 H 26 H 132/82 07/08/18 18:31 109 H 29 H 132/82 07/08/18 18:21 108 H 26 H 132/82 07/08/18 18:11 106 H 27 H 132/82 07/08/18 18:01 103 H 25 H 132/82 07/08/18 17:51 107 H 26 H 132/82 07/08/18 17:41 113 H 27 H 132/82 07/08/18 17:31 119 H 31 H 132/82 07/08/18 17:21 115 H 30 H 132/82 07/08/18 17:11 121 H 33 H 132/82 07/08/18 17:00 128 H 27 H 132/82 07/08/18 16:51 132 H 35 H 128/74 07/08/18 16:41 126 H 11 L 128/74 07/08/18 16:31 123 H 24 128/74 07/08/18 16:21 111 H 23 128/74 07/08/18 16:11 105 H 17 128/74 07/08/18 16:00 98.0 F 99 H 104 H 22 128/74 07/08/18 15:51 99 H 16 120/76 07/08/18 15:41 102 H 20 120/76 07/08/18 15:31 102 H 13 120/76 07/08/18 15:21 100 H 17 120/76 07/08/18 15:11 107 H 18 120/76 07/08/18 15:00 101 H 17 120/76 07/08/18 14:51 104 H 17 104/67 07/08/18 14:41 99 H 14 104/67 07/08/18 14:31 98 H 17 104/67 07/08/18 14:21 96 H 16 104/67 07/08/18 14:11 90 22 104/67 07/08/18 14:00 93 H 17 104/67 07/08/18 13:51 106 H 17 117/75 07/08/18 13:41 104 H 13 117/75 07/08/18 13:35 80 15 07/08/18 13:34 82 18 07/08/18 13:31 90 16 117/75 07/08/18 13:21 88 19 117/75 07/08/18 13:11 88 13 117/75 07/08/18 13:00 87 16 117/75 07/08/18 12:51 85 17 118/72 07/08/18 12:41 89 27 H 118/72 07/08/18 12:31 90 28 H 118/72 07/08/18 12:21 89 16 118/72 07/08/18 12:11 95 H 16 118/72 07/08/18 12:00 82 104 H 17 118/72 07/08/18 11:51 83 26 H 138/90 07/08/18 11:41 80 17 120/78 07/08/18 11:31 82 18 120/78 07/08/18 11:21 81 14 120/78 07/08/18 11:11 84 18 120/78 07/08/18 11:00 75 14 138/90 07/08/18 10:50 82 13 120/78 07/08/18 10:41 79 14 120/78 07/08/18 10:31 93 H 19 120/78 07/08/18 10:21 87 17 120/78 07/08/18 10:11 81 15 120/78 07/08/18 10:00 79 13 103/74 07/08/18 09:51 101 H 12 103/74 07/08/18 09:41 96 H 19 103/74 07/08/18 09:31 96 H 14 103/74 07/08/18 09:21 85 13 103/74 07/08/18 09:11 86 16 103/74 07/08/18 09:00 79 15 103/74 Pulse Ox 07/09/18 07:31 94 07/09/18 07:21 94 07/09/18 07:11 90 07/09/18 07:01 94 07/09/18 06:51 94 07/09/18 06:41 93 07/09/18 06:31 93 07/09/18 06:21 94 07/09/18 06:11 94 07/09/18 06:01 95 07/09/18 05:51 95 07/09/18 05:41 97 07/09/18 05:31 97 07/09/18 05:21 96 07/09/18 05:11 95 07/09/18 05:01 91 07/09/18 04:51 96 07/09/18 04:41 96 07/09/18 04:31 95 07/09/18 04:21 96 07/09/18 04:11 96 07/09/18 04:00 96 07/09/18 03:50 95 07/09/18 03:40 92 07/09/18 03:31 94 07/09/18 03:21 94 07/09/18 03:10 93 07/09/18 03:01 94 07/09/18 02:50 94 07/09/18 02:41 96 07/09/18 02:31 95 07/09/18 02:21 95 07/09/18 02:11 97 07/09/18 02:01 93 07/09/18 01:51 97 07/09/18 01:41 96 07/09/18 01:30 97 07/09/18 01:21 96 07/09/18 01:11 95 07/09/18 01:00 95 07/09/18 00:51 97 07/09/18 00:41 95 07/09/18 00:31 95 07/09/18 00:21 96 07/09/18 00:10 96 07/09/18 00:00 96 07/08/18 23:51 95 07/08/18 23:41 96 07/08/18 23:31 96 07/08/18 23:21 96 07/08/18 23:11 92 07/08/18 23:00 94 07/08/18 22:51 95 07/08/18 22:41 96 07/08/18 22:31 95 07/08/18 22:21 95 07/08/18 22:11 94 07/08/18 22:00 07/08/18 21:51 95 07/08/18 21:41 95 07/08/18 21:31 95 07/08/18 21:21 94 07/08/18 21:11 93 07/08/18 21:00 07/08/18 20:51 94 07/08/18 20:41 94 07/08/18 20:31 93 07/08/18 20:21 92 07/08/18 20:11 93 07/08/18 20:00 96 07/08/18 19:55 92 07/08/18 19:51 94 07/08/18 19:41 94 07/08/18 19:31 93 07/08/18 19:21 93 07/08/18 19:11 90 07/08/18 19:00 91 07/08/18 18:51 90 07/08/18 18:41 93 07/08/18 18:31 93 07/08/18 18:21 94 07/08/18 18:11 94 07/08/18 18:01 94 07/08/18 17:51 94 07/08/18 17:41 94 07/08/18 17:31 95 07/08/18 17:21 95 07/08/18 17:11 95 07/08/18 17:00 96 07/08/18 16:51 95 07/08/18 16:41 94 07/08/18 16:31 97 07/08/18 16:21 98 07/08/18 16:11 99 07/08/18 16:00 98 07/08/18 15:51 99 07/08/18 15:41 98 07/08/18 15:31 99 07/08/18 15:21 99 07/08/18 15:11 99 07/08/18 15:00 99 07/08/18 14:51 99 07/08/18 14:41 99 07/08/18 14:31 99 07/08/18 14:21 98 07/08/18 14:11 99 07/08/18 14:00 95 07/08/18 13:51 98 07/08/18 13:41 98 07/08/18 13:35 07/08/18 13:34 07/08/18 13:31 99 07/08/18 13:21 100 07/08/18 13:11 99 07/08/18 13:00 97 07/08/18 12:51 99 07/08/18 12:41 99 07/08/18 12:31 99 07/08/18 12:21 99 07/08/18 12:11 99 07/08/18 12:00 97 07/08/18 11:51 100 07/08/18 11:41 100 07/08/18 11:31 99 07/08/18 11:21 98 07/08/18 11:11 99 07/08/18 11:00 98 07/08/18 10:50 100 07/08/18 10:41 99 07/08/18 10:31 99 07/08/18 10:21 99 07/08/18 10:11 99 07/08/18 10:00 99 07/08/18 09:51 93 07/08/18 09:41 93 07/08/18 09:31 95 07/08/18 09:21 94 07/08/18 09:11 93 07/08/18 09:00 94 Intake and Output 07/08/18 07/09/18 07/09/18 22:59 06:59 14:59 Intake Total 300 100 Balance 300 100 Intake: IV 300 100 FLAGYL 500 MG/100 ML 500 100 100 mg In 100 ml @ 100 mls/hr IV Q8HR [facility] Rx#: [id number] MAXIPIME/NS 2 GM/100 ML 2 200 gm In 100 ml @ 200 mls/ hr IV Q8HR [facility] Rx#: [id number] Other: Voiding Method Toilet Toilet Weight 133 lb 0.007 oz - Exam Breasts: Present: normal Cardiovascular: Present: Regular rate Lungs: Present: Normal air movement, Other (pt continues to cough up thick sputum) Abdomen: Present: normal appearance, soft Uterus: Present: normal, fundal height below umbilicus Extremities: Present: normal Deep Tendon Reflex Grade: Normal +2 Incision: Present: erythematous (light pink color around area that has separted and has been packed and managed by Wound Care), dry
[2018-07-09] MEDS: PROVENTIL IH SCH ×4 (09:12→21:21)
[2018-07-09] MEDS: ZITHROMAX PO SCH (10:10)
[2018-07-09] MEDS: TAMIFLU PO SCH ×2 (10:11→23:42)
[2018-07-09] MEDS: HABITROL TD SCH (10:11)
--- NOTE | 2018-07-09 12:16 | Progress Note ---
Assessment and Plan Assessment and plan: Patient is a 28 yo woman with a history of tobacco and illegal drug use who presented to [facility] ED with heavy vaginal bleeding and was admitted by OB GYN, Dr. Mathur, on 06/30/18 at 20 weeks . She was found to have Placentral Abruption and was taken to surgery. Patient became febrile and it appears patient was transferred to [facility] under the Hospitalist service on 07/04/18. Also, She was found to have Amphetamines and THC on admission Urine drug screen * Temp of 100.5, tachycardic, tachypenic but nomotensive * D-Dimer elevated at 1719, normal pro-bnp today, UA showing pyuria * CTA chest Impression: Finding are consistent with diffuse pneumonia with the greater involvement in the left lower lobe, no evidence of acute PE, moderate amount of free fluid in the left upper quadrant of the abdomen associated with omental graying, correlation with surgical history is recommended. Cultures Blood culture 07/03/2018 Prevotella loescheii 2 of 4 bottles Blood culture 07/04/2018 negative so far Urine culture 07/03/2018 10-100K multiple sp -Sepsis, UTI and Bilateral pneumonia, HR 101 and WBC 3.2, so SIRS with organ dysfunction was poa: iv rocephin initiated, consulted ID, follow blood culture which is showing GNR, so i added IV Cefepime and ID added azithomycin -Prevotella loescheii bacteremia: added Flagyl -Elevated D-Dimer, such a wide differential diagnosis in this patient: CTA chest shows diffuse pneumonia LLL, no PE -Acute blood loss anemia due to Placental Abruption s/p 2 units transfused so far, h/h stable -Tobacco and Amphetamine in UDS: counseling done -Severe malnutrition, albumin 1.9, most likely poa: consult Instrumentation Fitter, add regular diet -DVT prophylaxis: Hold A/C due to recent bleeding, encourage ambulation -last fever was 07/08/18 at 0400, 101.5F ID is following, added tamiflu, treated with Ibuprofen for high fevers History Interval history: Patient was seen and examined. Follow-up on current diagnosis of sepsis. SOB resolved, she is walking around room without problems. Overnight uneventful febrile. Patient denies any chest pain, nausea/vomiting or severe headaches. Imaging, nursing note, chart, labs and old chart reviewed. Discussed with patient. Hospitalist Physical - Physical exam Narrative exam: Gen: ill appearing, WDWN, NAD, Awake, Alert, Orientated HEENT: NCAT, EOMI, PERRL, OP Clear Neck: supple, no adenopathy, no thyromegaly, no JVD CVS/Heart: regular tachycardia, normal S1S2, pulses present bilaterally Chest/Lungs: tachypnea resolved, coarse bs bilaterally, Symmetrical chest expansion, good air entry bilaterally GI/Abdomen: soft, NTND, present bowel sounds, no guarding or rebound, suzanne just removed, wound looks c/d/i /Bladder: no suprapubic tenderness, no CVA or paraspinal tenderness Extermity/Skin: no c/c/e, no obvious rash MSK: FROM x 4 Neuro: CN 2-12 grossly intact, no new focal deficits Psych: calm - Constitutional Vitals: Temp Pulse Resp BP Pulse Ox 98.4 F 91 H 18 111/81 97 07/09/18 04:00 07/09/18 09:20 07/09/18 09:20 07/09/18 07:31 07/09/18 09:13 General appearance: Present: other (diaphoretic, lethargic, ) Results - Labs CBC & Chem 7: 07/05/18 10:03 07/05/18 09:38 Labs: Laboratory Last Values WBC 9.8 K/mm3 (4.5-11.0) 07/05/18 10:03 RBC 3.18 M/mm3 (3.65-5.03) L 07/05/18 10:03 Hgb 10.3 gm/dl (10.1-14.3) 07/05/18 10:03 Hct 29.1 % (30.3-42.9) L 07/05/18 10:03 MCV 92 fl (79-97) 07/05/18 10:03 MCH 32 pg (28-32) 07/05/18 10:03 MCHC 35 % (30-34) H 07/05/18 10:03 RDW 13.9 % (13.2-15.2) 07/05/18 10:03 Plt Count 250 K/mm3 (140-440) 07/05/18 10:03 Lymph % (Auto) 25.8 % (13.4-35.0) 06/30/18 18:40 [place] % (Auto) 1.5 % (0.0-7.3) 06/30/18 18:40 Eos % (Auto) 1.5 % (0.0-4.3) 06/30/18 18:40 Baso % (Auto) 0.8 % (0.0-1.8) 06/30/18 18:40 Lymph # 0.8 K/mm3 (1.2-5.4) L 06/30/18 18:40 [place] # 0.0 K/mm3 (0.0-0.8) 06/30/18 18:40 Eos # 0.0 K/mm3 (0.0-0.4) 06/30/18 18:40 Baso # 0.0 K/mm3 (0.0-0.1) 06/30/18 18:40 Add Manual Diff Complete 07/05/18 10:03 Total Counted 100 07/05/18 10:03 Seg Neutrophils % 70.4 % (40.0-70.0) H 06/30/18 18:40 Seg Neuts % (Manual) 92.0 % (40.0-70.0) H 07/05/18 10:03 Band Neutrophils % 0 % 07/05/18 10:03 Lymphocytes % (Manual) 7.0 % (13.4-35.0) L 07/05/18 10:03 Reactive Lymphs % (Man) 0 % 07/05/18 10:03 Monocytes % (Manual) 1.0 % (0.0-7.3) 07/05/18 10:03 Eosinophils % (Manual) 0 % (0.0-4.3) 07/05/18 10:03 Basophils % (Manual) 0 % (0.0-1.8) 07/05/18 10:03 Metamyelocytes % 0 % 07/05/18 10:03 Myelocytes % 0 % 07/05/18 10:03 Promyelocytes % 0 % 07/05/18 10:03 Blast Cells % 0 % 07/05/18 10:03 Nucleated RBC % Not Reportable 07/05/18 10:03 Seg Neutrophils # 2.3 K/mm3 (1.8-7.7) 06/30/18 18:40 Seg Neutrophils # Man 9.0 K/mm3 (1.8-7.7) H 07/05/18 10:03 Band Neutrophils # 0.0 K/mm3 07/05/18 10:03 Lymphocytes # (Manual) 0.7 K/mm3 (1.2-5.4) L 07/05/18 10:03 Abs React Lymphs (Man) 0.0 K/mm3 07/05/18 10:03 Monocytes # (Manual) 0.1 K/mm3 (0.0-0.8) 07/05/18 10:03 Eosinophils # (Manual) 0.0 K/mm3 (0.0-0.4) 07/05/18 10:03 Basophils # (Manual) 0.0 K/mm3 (0.0-0.1) 07/05/18 10:03 Metamyelocytes # 0.0 K/mm3 07/05/18 10:03 Myelocytes # 0.0 K/mm3 07/05/18 10:03 Promyelocytes # 0.0 K/mm3 07/05/18 10:03 Blast Cells # 0.0 K/mm3 07/05/18 10:03 WBC Morphology Not Reportable 07/05/18 10:03 Hypersegmented Neuts Not Reportable 07/05/18 10:03 Hyposegmented Neuts Not Reportable 07/05/18 10:03 Hypogranular Neuts Not Reportable 07/05/18 10:03 Smudge Cells Not Reportable 07/05/18 10:03 Toxic Granulation Not Reportable 07/05/18 10:03 Toxic Vacuolation Not Reportable 07/05/18 10:03 Dohle Bodies Not Reportable 07/05/18 10:03 Pelger-Huet Anomaly Not Reportable 07/05/18 10:03 Ronak Rods Not Reportable 07/05/18 10:03 Platelet Estimate Consistent w auto 07/05/18 10:03 Clumped Platelets Not Reportable 07/05/18 10:03 Plt Clumps, EDTA Not Reportable 07/05/18 10:03 Large Platelets Not Reportable 07/05/18 10:03 Giant Platelets Not Reportable 07/05/18 10:03 Platelet Satelliting Not Reportable 07/05/18 10:03 Plt Morphology Comment Not Reportable 07/05/18 10:03 RBC Morphology Not Reportable 07/05/18 10:03 Dimorphic RBCs Not Reportable 07/05/18 10:03 Polychromasia Not Reportable 07/05/18 10:03 Hypochromasia Not Reportable 07/05/18 10:03 Poikilocytosis Not Reportable 07/05/18 10:03 Anisocytosis 1+ 07/05/18 10:03 Microcytosis Not Reportable 07/05/18 10:03 Macrocytosis Not Reportable 07/05/18 10:03 Spherocytes Not Reportable 07/05/18 10:03 Pappenheimer Bodies Not Reportable 07/05/18 10:03 Sickle Cells Not Reportable 07/05/18 10:03 Target Cells Not Reportable 07/05/18 10:03 Tear Drop Cells Not Reportable 07/05/18 10:03 Ovalocytes Not Reportable 07/05/18 10:03 Helmet Cells Not Reportable 07/05/18 10:03 Mcneill-Helemano Bodies Not Reportable 07/05/18 10:03 Lane Rings Not Reportable 07/05/18 10:03 Greg Cells Not Reportable 07/05/18 10:03 Bite Cells Not Reportable 07/05/18 10:03 Crenated Cell Not Reportable 07/05/18 10:03 Elliptocytes Not Reportable 07/05/18 10:03 Acanthocytes (Spur) Not Reportable 07/05/18 10:03 Rouleaux Not Reportable 07/05/18 10:03 Hemoglobin C Crystals Not Reportable 07/05/18 10:03 Schistocytes Not Reportable 07/05/18 10:03 Malaria parasites Not Reportable 07/05/18 10:03 Ilya Bodies Not Reportable 07/05/18 10:03 Hem Pathologist Commnt No 07/05/18 10:03 PT 14.8 Sec. (12.2-14.9) 06/30/18 21:50 INR 1.09 (0.87-1.13) 06/30/18 21:50 APTT 27.9 Sec. (24.2-36.6) 06/30/18 21:50 D-Dimer 1719.47 ng/mlDDU (0-234) H 07/03/18 15:46 Sodium 135 mmol/L (137-145) L 07/05/18 09:38 Potassium 3.9 mmol/L (3.6-5.0) 07/05/18 09:38 Chloride 100.4 mmol/L (98-107) 07/05/18 09:38 Carbon Dioxide 22 mmol/L (22-30) 07/05/18 09:38 Anion Gap 17 mmol/L 07/05/18 09:38 BUN 11 mg/dL (7-17) 07/05/18 09:38 Creatinine 0.5 mg/dL (0.7-1.2) L 07/05/18 09:38 Estimated GFR > 60 ml/min 07/05/18 09:38 BUN/Creatinine Ratio 22 % 07/05/18 09:38 Glucose 94 mg/dL (65-100) 07/05/18 09:38 Lactic Acid 1.60 mmol/L (0.7-2.0) 07/03/18 21:23 Uric Acid 4.4 mg/dL (3.5-7.6) 06/30/18 21:50 Calcium 7.7 mg/dL (8.4-10.2) L 07/05/18 09:38 Total Bilirubin 0.50 mg/dL (0.1-1.2) 07/05/18 09:38 AST 13 units/L (5-40) 07/05/18 09:38 ALT 9 units/L (7-56) 07/05/18 09:38 Alkaline Phosphatase 100 units/L (35-129) 07/05/18 09:38 NT-Pro-B Natriuret Pep 423.7 pg/mL (0-450) 07/03/18 15:46 Total Protein 4.9 g/dL (6.3-8.2) L 07/05/18 09:38 Albumin 1.9 g/dL (3.9-5) L 07/05/18 09:38 Albumin/Globulin Ratio 0.6 % 07/05/18 09:38 Urine Color [place] (Yellow) 07/03/18 15:50 Urine Turbidity Slightly-cloudy (Clear) 07/03/18 15:50 Urine pH 7.0 (5.0-7.0) 07/03/18 15:50 Ur Specific [place] 1.027 (1.003-1.030) 07/03/18 15:50 Urine Protein 100 mg/dl mg/dL (Negative) 07/03/18 15:50 Urine Glucose (UA) Neg mg/dL (Negative) 07/03/18 15:50 Urine Ketones Neg mg/dL (Negative) 07/03/18 15:50 Urine Blood Mod (Negative) 07/03/18 15:50 Urine Nitrite Neg (Negative) 07/03/18 15:50 Urine Bilirubin Neg (Negative) 07/03/18 15:50 Urine Urobilinogen < 2.0 mg/dL (<2.0) 07/03/18 15:50 Ur Leukocyte Esterase Mod (Negative) 07/03/18 15:50 Urine WBC (Auto) 110.0 /HPF (0.0-6.0) H 07/03/18 15:50 Urine RBC (Auto) 7.0 /HPF (0.0-6.0) 07/03/18 15:50 U Epithel Cells (Auto) 13.0 /HPF (0-13.0) 07/03/18 15:50 Urine Bacteria (Auto) 1+ /HPF (Negative) 07/03/18 15:50 Urine Mucus 3+ /HPF 07/03/18 15:50 Urine Yeast (Budding) Few /HPF 07/03/18 15:50 Urine Opiates Screen Presumptive negative 07/03/18 15:50 Urine Methadone Screen Presumptive negative 07/03/18 15:50 Ur Barbiturates Screen Presumptive negative 07/03/18 15:50 Ur Phencyclidine Scrn Presumptive negative 07/03/18 15:50 Ur Amphetamines Screen Presumptive negative 07/03/18 15:50 U Benzodiazepines Scrn Presumptive negative 07/03/18 15:50 Urine Cocaine Screen Presumptive negative 07/03/18 15:50 U Marijuana (THC) Screen Presumptive positive 07/03/18 15:50 Drugs of Abuse Note Disclamer 07/03/18 15:50 RPR Nonreactive (Nonreactive) 07/01/18 09:54 Influenza A (Rapid) Negative (Negative) 07/08/18 12:47 Influenza A (RT-PCR) Negative (Negative) 07/08/18 12:47 Influenza B (Rapid) Negative (Negative) 07/08/18 12:47 Influenza B (RT-PCR) Negative (Negative) 07/08/18 12:47 Blood Type A POSITIVE 06/30/18 18:40 Antibody Screen Negative 06/30/18 18:40 Crossmatch See Detail 06/30/18 18:40 Nutrition/Malnutrition Assess - Dietary Evaluation Nutrition/Malnutrition Findings: Nutrition Notes Start: 07/06/18 12:46 Freq: Status: Active Protocol: Document 07/08/18 15:20 RM (Rec: 07/08/18 15:27 RM [id number]) Nutrition Notes Initial or Follow up Reassessment Current Diagnosis Sepsis Other Pertinent Diagnosis Pneu, UTI, marijuana & amphetamine abuse, vaginal bleeding,wound dehiscence Current Diet Regular Labs/Tests Reviewed Pertinent Medications Reviewed Height 5 ft 1 in Weight 60.328 kg Holly Body Weight (kg) 47.72 BMI 25.1 Subjective/Other Information Pt stated that her appetite is alright and that she eats 1/3 of her meals. Noted lunch at bedside with 1/3 eaten. Percent of energy/protein needs met: 51%/40% Burn Absent Trauma Absent #1 Nutrition Diagnosis Inadequate oral intake As Evidenced by Signs and Symptoms pt statement that she eats 1/3 of her meals Diagnosis Progress(for reassessment Worsened documentation) Is patient on ventilator? No Is Patient Ambulatory and/or Out of Bed No REE-([place]-confined to bed) [phone] Calculation Used for Recommendations [facility] Additional Notes Protein: 72-90g (1.2-1.5 g/kg) Fluid: 1 ml/kcal Nutrition Intervention Change Diet Order: Continue current Add Supplement/Snack (indicate name/kcal Was not previosuly added. Add /protein ) Ensure Enlive Vanilla one daily Provides kCal: 350 Provides Protein (gm) 20 Goal #1 Meet at least 75-100% of needs via PO and ONS intake Anticipated Discharge Needs: Regular Follow-Up By: 07/12/18 Additional Comments Follow for PO and ONS intakes
[2018-07-10] MEDS: PERCOCET 5/325 PO PRN ×2 (04:02→13:05)
[2018-07-10] MEDS: MAXIPIME/NS 2 GM/100 ML 2 GM/100 ML BAG IV SCH ×3 (05:30→23:19)
[2018-07-10 05:57] LABS: Hematocrit 28.9 % (30.3-42.9); Hemoglobin 9.8 gm/dl (10.1-14.3); Mean Corpuscular HGB Conc 34 % (30-34); Mean Corpuscular Volume 93 fl (79-97); Platelet Count 545 K/mm3 (140-440); Red Blood Count 3.12 M/mm3 (3.65-5.03); Red Cell Distribution Width 14.2 % (13.2-15.2)
[2018-07-10] MEDS: FLAGYL 500 MG/100 ML 500 MG/100 ML BAG IV SCH ×2 (06:00→16:52)
[2018-07-10 06:41] LABS: BUN/Creatinine Ratio 30; Blood Urea Nitrogen 12 mg/dL (7-17); Calcium 7.8 mg/dL (8.4-10.2); Hemolysis Index 6
[2018-07-10] MEDS: PROVENTIL IH SCH ×2 (07:45→21:35)
--- NOTE | 2018-07-10 09:13 | Progress Note ---
Assessment and Plan Assessment and plan: Patient is a 28 yo woman with a history of tobacco and illegal drug use who [facility] and was admitted by KITCHEN STEWARDESS, Dr. Mathur, on 06/30/18 at 20 weeks . She was found to have Placentral Abruption and was taken to surgery. Patient became febrile and it appears patient was transferred to the [facility] under the Hospitalist service on 07/04/18. Also, She was found to have Amphetamines and THC on admission Urine drug screen * Initial Temp of 100.5, tachycardic, tachypenic but nomotensive * D-Dimer elevated at 1719, normal pro-bnp today, UA showing pyuria * CTA chest Impression: Finding are consistent with diffuse pneumonia with the greater involvement in the left lower lobe, no evidence of acute PE, moderate amount of free fluid in the left upper quadrant of the abdomen associated with omental graying, correlation with surgical history is recommended. Cultures Blood culture 07/03/2018 Prevotella loescheii 2 of 4 bottles Blood culture 07/04/2018 negative so far Urine culture 07/03/2018 10-100K multiple sp -Sepsis, UTI and Bilateral pneumonia, HR 101 and WBC 3.2, so SIRS with organ dysfunction was poa: iv rocephin initiated, consulted ID, follow blood culture which is showing GNR, so i added IV Cefepime and ID added azithomycin -Prevotella loescheii bacteremia: added Flagyl -Elevated D-Dimer, such a wide differential diagnosis in this patient: CTA chest shows diffuse pneumonia LLL, no PE -Acute blood loss anemia due to Placental Abruption s/p 2 units transfused so far, h/h stable -Tobacco and Amphetamine in UDS: counseling done -Severe malnutrition, albumin 1.9, most likely poa: consult Design/Animation Instructor, add regular diet -DVT prophylaxis: Hold A/C due to recent bleeding, encourage ambulation -last fever was 07/08/18 at 0400, 101.5F ID is following, added tamiflu, treated with Ibuprofen for high fevers transfer out of [facility] History Interval history: Patient was seen and examined. Follow-up on current diagnosis of sepsis. SOB resolved, she is walking around room without problems. Overnight uneventful febrile. Patient denies any chest pain, nausea/vomiting or severe headaches. Imaging, nursing note, chart, labs and old chart reviewed. Discussed with patient. Hospitalist Physical - Physical exam Narrative exam: Gen: ill appearing, WDWN, NAD, Awake, Alert, Orientated HEENT: NCAT, EOMI, PERRL, OP Clear Neck: supple, no adenopathy, no thyromegaly, no JVD CVS/Heart: regular tachycardia, normal S1S2, pulses present bilaterally Chest/Lungs: tachypnea resolved, coarse bs bilaterally, Symmetrical chest expansion, good air entry bilaterally GI/Abdomen: soft, NTND, present bowel sounds, no guarding or rebound, suzanne just removed, wound looks c/d/i /Bladder: no suprapubic tenderness, no CVA or paraspinal tenderness Extermity/Skin: no c/c/e, no obvious rash MSK: FROM x 4 Neuro: CN 2-12 grossly intact, no new focal deficits Psych: calm - Constitutional Vitals: Temp Pulse Resp BP Pulse Ox 98.1 F 104 H 18 113/76 96 07/10/18 04:00 07/10/18 07:47 07/10/18 07:47 07/10/18 05:01 07/10/18 07:48 General appearance: Present: other (diaphoretic, lethargic, ) Results - Labs CBC & Chem 7: 07/10/18 05:32 07/10/18 05:32 Labs: Laboratory Last Values WBC 8.9 K/mm3 (4.5-11.0) 07/10/18 05:32 RBC 3.12 M/mm3 (3.65-5.03) L 07/10/18 05:32 Hgb 9.8 gm/dl (10.1-14.3) L 07/10/18 05:32 Hct 28.9 % (30.3-42.9) L 07/10/18 05:32 MCV 93 fl (79-97) 07/10/18 05:32 MCH 31 pg (28-32) 07/10/18 05:32 MCHC 34 % (30-34) 07/10/18 05:32 RDW 14.2 % (13.2-15.2) 07/10/18 05:32 Plt Count 545 K/mm3 (140-440) H 07/10/18 05:32 Lymph % (Auto) 25.8 % (13.4-35.0) 06/30/18 18:40 [place] % (Auto) 1.5 % (0.0-7.3) 06/30/18 18:40 Eos % (Auto) 1.5 % (0.0-4.3) 06/30/18 18:40 Baso % (Auto) 0.8 % (0.0-1.8) 06/30/18 18:40 Lymph # 0.8 K/mm3 (1.2-5.4) L 06/30/18 18:40 [place] # 0.0 K/mm3 (0.0-0.8) 06/30/18 18:40 Eos # 0.0 K/mm3 (0.0-0.4) 06/30/18 18:40 Baso # 0.0 K/mm3 (0.0-0.1) 06/30/18 18:40 Add Manual Diff Complete 07/05/18 10:03 Total Counted 100 07/05/18 10:03 Seg Neutrophils % 70.4 % (40.0-70.0) H 06/30/18 18:40 Seg Neuts % (Manual) 92.0 % (40.0-70.0) H 07/05/18 10:03 Band Neutrophils % 0 % 07/05/18 10:03 Lymphocytes % (Manual) 7.0 % (13.4-35.0) L 07/05/18 10:03 Reactive Lymphs % (Man) 0 % 07/05/18 10:03 Monocytes % (Manual) 1.0 % (0.0-7.3) 07/05/18 10:03 Eosinophils % (Manual) 0 % (0.0-4.3) 07/05/18 10:03 Basophils % (Manual) 0 % (0.0-1.8) 07/05/18 10:03 Metamyelocytes % 0 % 07/05/18 10:03 Myelocytes % 0 % 07/05/18 10:03 Promyelocytes % 0 % 07/05/18 10:03 Blast Cells % 0 % 07/05/18 10:03 Nucleated RBC % Not Reportable 07/05/18 10:03 Seg Neutrophils # 2.3 K/mm3 (1.8-7.7) 06/30/18 18:40 Seg Neutrophils # Man 9.0 K/mm3 (1.8-7.7) H 07/05/18 10:03 Band Neutrophils # 0.0 K/mm3 07/05/18 10:03 Lymphocytes # (Manual) 0.7 K/mm3 (1.2-5.4) L 07/05/18 10:03 Abs React Lymphs (Man) 0.0 K/mm3 07/05/18 10:03 Monocytes # (Manual) 0.1 K/mm3 (0.0-0.8) 07/05/18 10:03 Eosinophils # (Manual) 0.0 K/mm3 (0.0-0.4) 07/05/18 10:03 Basophils # (Manual) 0.0 K/mm3 (0.0-0.1) 07/05/18 10:03 Metamyelocytes # 0.0 K/mm3 07/05/18 10:03 Myelocytes # 0.0 K/mm3 07/05/18 10:03 Promyelocytes # 0.0 K/mm3 07/05/18 10:03 Blast Cells # 0.0 K/mm3 07/05/18 10:03 WBC Morphology Not Reportable 07/05/18 10:03 Hypersegmented Neuts Not Reportable 07/05/18 10:03 Hyposegmented Neuts Not Reportable 07/05/18 10:03 Hypogranular Neuts Not Reportable 07/05/18 10:03 Smudge Cells Not Reportable 07/05/18 10:03 Toxic Granulation Not Reportable 07/05/18 10:03 Toxic Vacuolation Not Reportable 07/05/18 10:03 Dohle Bodies Not Reportable 07/05/18 10:03 Pelger-Huet Anomaly Not Reportable 07/05/18 10:03 Ronak Rods Not Reportable 07/05/18 10:03 Platelet Estimate Consistent w auto 07/05/18 10:03 Clumped Platelets Not Reportable 07/05/18 10:03 Plt Clumps, EDTA Not Reportable 07/05/18 10:03 Large Platelets Not Reportable 07/05/18 10:03 Giant Platelets Not Reportable 07/05/18 10:03 Platelet Satelliting Not Reportable 07/05/18 10:03 Plt Morphology Comment Not Reportable 07/05/18 10:03 RBC Morphology Not Reportable 07/05/18 10:03 Dimorphic RBCs Not Reportable 07/05/18 10:03 Polychromasia Not Reportable 07/05/18 10:03 Hypochromasia Not Reportable 07/05/18 10:03 Poikilocytosis Not Reportable 07/05/18 10:03 Anisocytosis 1+ 07/05/18 10:03 Microcytosis Not Reportable 07/05/18 10:03 Macrocytosis Not Reportable 07/05/18 10:03 Spherocytes Not Reportable 07/05/18 10:03 Pappenheimer Bodies Not Reportable 07/05/18 10:03 Sickle Cells Not Reportable 07/05/18 10:03 Target Cells Not Reportable 07/05/18 10:03 Tear Drop Cells Not Reportable 07/05/18 10:03 Ovalocytes Not Reportable 07/05/18 10:03 Helmet Cells Not Reportable 07/05/18 10:[address] Mcneill-[place] Bodies Not Reportable 07/05/18 10:03 [place] Rings Not Reportable 07/05/18 10:03 Greg Cells Not Reportable 07/05/18 10:03 Bite Cells Not Reportable 07/05/18 10:03 Crenated Cell Not Reportable 07/05/18 10:03 Elliptocytes Not Reportable 07/05/18 10:03 Acanthocytes (Spur) Not Reportable 07/05/18 10:03 Rouleaux Not Reportable 07/05/18 10:03 Hemoglobin C Crystals Not Reportable 07/05/18 10:03 Schistocytes Not Reportable 07/05/18 10:03 Malaria parasites Not Reportable 07/05/18 10:03 Ilya Bodies Not Reportable 07/05/18 10:03 Hem Pathologist Commnt No 07/05/18 10:03 PT 14.8 Sec. (12.2-14.9) 06/30/18 21:50 INR 1.09 (0.87-1.13) 06/30/18 21:50 APTT 27.9 Sec. (24.2-36.6) 06/30/18 21:50 D-Dimer 1719.47 ng/mlDDU (0-234) H 07/03/18 15:46 Sodium 140 mmol/L (137-145) 07/10/18 05:32 Potassium 4.1 mmol/L (3.6-5.0) 07/10/18 05:32 Chloride 103.0 mmol/L (98-107) 07/10/18 05:32 Carbon Dioxide 23 mmol/L (22-30) 07/10/18 05:32 Anion Gap 18 mmol/L 07/10/18 05:32 BUN 12 mg/dL (7-17) 07/10/18 05:32 Creatinine 0.4 mg/dL (0.7-1.2) L 07/10/18 05:32 Estimated GFR > 60 ml/min 07/10/18 05:32 BUN/Creatinine Ratio 30 % 07/10/18 05:32 Glucose 88 mg/dL (65-100) 07/10/18 05:32 Lactic Acid 1.60 mmol/L (0.7-2.0) 07/03/18 21:23 Uric Acid 4.4 mg/dL (3.5-7.6) 06/30/18 21:50 Calcium 7.8 mg/dL (8.4-10.2) L 07/10/18 05:32 Total Bilirubin 0.50 mg/dL (0.1-1.2) 07/05/18 09:38 AST 13 units/L (5-40) 07/05/18 09:38 ALT 9 units/L (7-56) 07/05/18 09:38 Alkaline Phosphatase 100 units/L (35-129) 07/05/18 09:38 NT-Pro-B Natriuret Pep 423.7 pg/mL (0-450) 07/03/18 15:46 Total Protein 4.9 g/dL (6.3-8.2) L 07/05/18 09:38 Albumin 1.9 g/dL (3.9-5) L 07/05/18 09:38 Albumin/Globulin Ratio 0.6 % 07/05/18 09:38 Urine Color [place] (Yellow) 07/03/18 15:50 Urine Turbidity Slightly-cloudy (Clear) 07/03/18 15:50 Urine pH 7.0 (5.0-7.0) 07/03/18 15:50 Ur Specific [place] 1.027 (1.003-1.030) 07/03/18 15:50 Urine Protein 100 mg/dl mg/dL (Negative) 07/03/18 15:50 Urine Glucose (UA) Neg mg/dL (Negative) 07/03/18 15:50 Urine Ketones Neg mg/dL (Negative) 07/03/18 15:50 Urine Blood Mod (Negative) 07/03/18 15:50 Urine Nitrite Neg (Negative) 07/03/18 15:50 Urine Bilirubin Neg (Negative) 07/03/18 15:50 Urine Urobilinogen < 2.0 mg/dL (<2.0) 07/03/18 15:50 Ur Leukocyte Esterase Mod (Negative) 07/03/18 15:50 Urine WBC (Auto) 110.0 /HPF (0.0-6.0) H 07/03/18 15:50 Urine RBC (Auto) 7.0 /HPF (0.0-6.0) 07/03/18 15:50 U Epithel Cells (Auto) 13.0 /HPF (0-13.0) 07/03/18 15:50 Urine Bacteria (Auto) 1+ /HPF (Negative) 07/03/18 15:50 Urine Mucus 3+ /HPF 07/03/18 15:50 Urine Yeast (Budding) Few /HPF 07/03/18 15:50 Urine Opiates Screen Presumptive negative 07/03/18 15:50 Urine Methadone Screen Presumptive negative 07/03/18 15:50 Ur Barbiturates Screen Presumptive negative 07/03/18 15:50 Ur Phencyclidine Scrn Presumptive negative 07/03/18 15:50 Ur Amphetamines Screen Presumptive negative 07/03/18 15:50 U Benzodiazepines Scrn Presumptive negative 07/03/18 15:50 Urine Cocaine Screen Presumptive negative 07/03/18 15:50 U Marijuana (THC) Screen Presumptive positive 07/03/18 15:50 Drugs of Abuse Note Disclamer 07/03/18 15:50 RPR Nonreactive (Nonreactive) 07/01/18 09:54 Influenza A (Rapid) Negative (Negative) 07/08/18 12:47 Influenza A (RT-PCR) Negative (Negative) 07/08/18 12:47 Influenza B (Rapid) Negative (Negative) 07/08/18 12:47 Influenza B (RT-PCR) Negative (Negative) 07/08/18 12:47 Blood Type A POSITIVE 06/30/18 18:40 Antibody Screen Negative 06/30/18 18:40 Crossmatch See Detail 06/30/18 18:40 Nutrition/Malnutrition Assess - Dietary Evaluation Nutrition/Malnutrition Findings: Nutrition Notes Start: 07/06/18 12:46 Freq: Status: Active Protocol: Document 07/08/18 15:20 RM (Rec: 07/08/18 15:27 RM [id number]) Nutrition Notes Initial or Follow up Reassessment Current Diagnosis Sepsis Other Pertinent Diagnosis Pneu, UTI, marijuana & amphetamine abuse, vaginal bleeding,wound dehiscence Current Diet Regular Labs/Tests Reviewed Pertinent Medications Reviewed Height 5 ft 1 in Weight 60.328 kg [place] Body Weight (kg) 47.72 BMI 25.1 Subjective/Other Information Pt stated that her appetite is alright and that she eats 1/3 of her meals. Noted lunch at bedside with 1/3 eaten. Percent of energy/protein needs met: 51%/40% Burn Absent Trauma Absent #1 Nutrition Diagnosis Inadequate oral intake As Evidenced by Signs and Symptoms pt statement that she eats 1/3 of her meals Diagnosis Progress(for reassessment Worsened documentation) Is patient on ventilator? No Is Patient Ambulatory and/or Out of Bed No REE-([facility]-confined to bed) [phone] Calculation Used for Recommendations [facility] Additional Notes Protein: 72-90g (1.2-1.5 g/kg) Fluid: 1 ml/kcal Nutrition Intervention Change Diet Order: Continue current Add Supplement/Snack (indicate name/kcal Was not previosuly added. Add /protein ) Ensure Enlive Vanilla one daily Provides kCal: 350 Provides Protein (gm) 20 Goal #1 Meet at least 75-100% of needs via PO and ONS intake Anticipated Discharge Needs: Regular Follow-Up By: 07/12/18 Additional Comments Follow for PO and ONS intakes
--- NOTE | 2018-07-10 09:31 | Progress Note ---
Assessment and Plan Cultures: Blood culture 07/03/2018 GNR 2 of 4 bottles Blood culture 07/04/2018 negative so far Urine culture 07/03/2018 10-100K multiple sp Wound Culture: 07/08/18: no growth to date Assessment: 28 y/o female with a history of tobacco, marihuana, meth abuse; admitted on 06/30/2018 at 30 weeks of , due to acute onset of copious vaginal bleed. Patient was found to have placental abruption and underwent emergent on 06/30/2018: 1) Sepsis: Resolved, no fevers >48 hours. Etiology most likely bacteremia +/- pneumonia +/- UTI. 2) GNR bacteremia: Blood culture 07/03/2018 +GNR 2 of 4 bottles. Repeat blood culture 07/04/2018 negative so far. Unclear source ? UTI (however UA is not that impressive for UTI) ? H. flu pneumonia +/- other sources Influenza negative 3) Bilateral pneumonia: Patient has 3 small kids and they have been sick with "cold symptoms". She reports that she and her partner both has been coughing up for 1-2 weeks. CXR initial negative. CTA chest 07/03 showed diffuse pneumonia with the greater involvement in the left lower lobe, no evidence of acute PE, moderate amount of free fluid in the left upper quadrant of the abdomen associated with omental graying. Likely CAP versus post-influenza pneumonia versus HAP. 4) UTI: UA 06/30 neg. Repeat UA 07/03 moderate LE, wbc 110. ?riojas-associated. Urine culture 07/03/2018 10-100K multiple sp Recommendations: - follow-up blood cultures ID and MICs - continue cefepime to cover CAP/HAP/UTI, D6 - continue azithromycin to cover CAP/atypicals, D5 - Discontinue tamiflu, Influenza negative -Continue Flagyl, D6 Discontinue isolation [facility] M: [id number] O:[phone] Subjective Date of service: 07/10/18 Principal diagnosis: postop day #9; s/p emergency c/s, abruption, + UDS, transfusion, sepsis Interval history: Patient seen and examined. Stated t hat she continues to have abdominal pain and drainage. no fevers. Nurses notes, labs and reports reviewed, discussed with patient. Objective - Exam Narrative Exam: Narrative exam: General appearance: Asleep, generalized weakness. Conversant. Eyes: anicteric sclerae, moist conjunctivae; no lid-lag; PERRLA HENT: Atraumatic; oropharynx clear with moist mucous membranes and no mucosal ulcerations/no oral thrush; normal hard and soft palate. Normal external ears. Neck: Trachea midline; supple, no thyromegaly or lymphadenopathy Lungs: scattered brad crackles CV: RRR, no murmurs Abdomen: Soft, non-tender; Csection wound , + drainage, + dressing Extremities: No peripheral edema or extremity lymphadenopathy Skin: Normal temperature, turgor and texture; no rash, ulcers or subcutaneous nodules Psych: Appropriate affect, alert and oriented to person, place and time. Neuro: alert and oriented x 3. Moving all extermities - Constitutional Vitals: Vital Signs Temp Pulse Resp BP Pulse Ox 98.1 F 78 16 113/75 94 07/10/18 04:00 07/10/18 09:21 07/10/18 09:21 07/10/18 09:21 07/10/18 09:21 Temperature -Last 24 Hours Temperature 98.1 F Temperature 98.1 F Temperature 98.4 F Temperature 98.4 F Temperature 97.3 F Temperature 97.4 F Temperature 98.6 F - Labs CBC & Chem 7: 07/10/18 05:32 07/10/18 05:32 Labs: Abnormal lab results 07/10/18 07/10/18 Range/Units 05:32 05:32 RBC 3.12 L (3.65-5.03) M/mm3 Hgb 9.8 L (10.1-14.3) gm/dl Hct 28.9 L (30.3-42.9) % Plt Count 545 H (140-440) K/mm3 Creatinine 0.4 L (0.7-1.2) mg/dL Calcium 7.8 L (8.4-10.2) mg/dL
[2018-07-10] MEDS: ZITHROMAX PO SCH (09:58)
[2018-07-10] MEDS: HABITROL TD SCH (09:58)
--- NOTE | 2018-07-10 10:10 | Progress Note ---
Addendum entered and electronically signed by DAVID ZHAO MD 07/10/18 14:30: Outpatient on mother-baby patient without complaint. Bandage on incision clean and dry. Patient without appointment outpatient wound care. Will have wound care see patient tomorrow Wednesday and set up outpatient. Original Note: Assessment and Plan Pt sleeping soundly easily aroused No c/o voiced. Male visitor present in room, also so sleeping. VSS Afebrile >48 hours at this time. There is a transfer order written by to move the pt to a medical floor. aware. Subjective - Subjective Date of service: 07/10/18 (Continuous Improvement Director Note) Principal diagnosis: postop day #10; s/p emergency c/s, abruption, + UDS, transfusion, sepsis Patient reports: appetite normal, voiding normally, pain well controlled, ambulating normally Objective - Vital Signs Latest vital signs: Vital Signs Temp Pulse Pulse Pulse Resp Resp BP 07/10/18 09:21 78 16 113/75 07/10/18 09:11 83 18 113/07/10/18 09:00 78 19 113/07/10/18 08:51 83 15 105/68 07/10/18 08:41 82 23 113/07/10/18 08:31 82 16 113/07/10/18 08:21 75 20 113/76 07/10/18 08:11 78 17 113/76 07/10/18 08:01 71 15 113/76 07/10/18 08:00 98.4 F 84 19 07/10/18 07:51 77 15 113/07/10/18 07:48 07/10/18 07:47 104 H 18 07/10/18 07:41 75 15 113/76 07/10/18 07:31 76 14 113/76 07/10/18 07:21 76 15 113/76 07/10/18 07:11 74 16 113/76 07/10/18 07:01 76 16 113/76 07/10/18 06:51 72 17 113/76 07/10/18 06:41 75 16 113/76 07/10/18 06:31 86 16 113/76 07/10/18 06:21 81 17 113/76 03/03/19 06:11 76 15 113/76 07/10/18 06:01 79 16 113/76 07/10/18 05:51 79 16 113/76 07/10/18 05:41 82 17 113/76 07/10/18 05:31 90 17 113/76 07/10/18 05:21 87 17 113/76 07/10/18 05:11 76 19 113/76 07/10/18 05:01 80 22 113/76 07/10/18 04:51 75 17 113/76 07/10/18 04:41 76 21 113/76 07/10/18 04:31 81 22 113/76 07/10/18 04:21 84 20 113/76 07/10/18 04:11 85 21 113/76 07/10/18 04:01 86 18 113/76 07/10/18 04:00 98.1 F 77 18 07/10/18 03:51 85 15 07/10/18 03:41 85 19 07/10/18 03:31 84 19 07/10/18 03:21 87 20 07/10/18 03:11 84 19 07/10/18 03:01 84 19 07/10/18 02:51 98 H 20 07/10/18 02:41 89 20 07/10/18 02:31 80 19 07/10/18 02:21 79 18 07/10/18 02:11 88 20 07/10/18 02:01 80 19 07/10/18 01:51 87 17 07/10/18 01:41 83 20 07/10/18 01:31 85 14 07/10/18 01:21 87 19 07/10/18 01:11 84 18 07/10/18 01:01 90 16 07/10/18 00:50 84 14 07/10/18 00:42 87 15 07/10/18 00:31 88 18 113/69 07/10/18 00:21 92 H 15 113/69 07/10/18 00:11 89 17 113/69 07/10/18 00:01 88 19 113/69 07/10/18 00:00 98.4 F 90 16 07/09/18 23:50 85 19 113/69 07/09/18 23:41 102 H 17 123/88 07/09/18 23:31 88 22 123/88 07/09/18 23:21 94 H 19 123/88 07/09/18 23:11 95 H 16 123/88 07/09/18 23:01 97 H 19 123/88 07/09/18 22:51 107 H 18 123/88 07/09/18 22:41 102 H 14 123/88 07/09/18 22:31 97 H 15 123/88 07/09/18 22:21 102 H 14 123/88 07/09/18 22:11 102 H 16 123/88 07/09/18 22:01 104 H 24 123/88 07/09/18 21:51 96 H 18 123/88 07/09/18 21:41 92 H 24 123/88 07/09/18 21:31 85 26 H 123/88 07/09/18 21:24 80 16 07/09/18 21:21 81 11 L 123/88 07/09/18 21:19 79 13 07/09/18 21:11 80 19 123/88 07/09/18 21:01 84 21 123/88 07/09/18 20:51 84 11 L 123/88 07/09/18 20:11 91 H 21 123/88 07/09/18 20:01 87 18 123/88 07/09/18 20:00 97.3 F L 81 19 07/09/18 19:51 88 18 123/88 07/09/18 19:41 79 17 123/88 07/09/18 19:31 92 H 18 123/88 07/09/18 19:21 93 H 19 123/88 07/09/18 19:11 86 16 123/88 07/09/18 19:01 90 21 123/88 07/09/18 18:51 85 19 123/88 07/09/18 18:41 86 19 123/88 07/09/18 18:31 81 17 123/88 07/09/18 18:21 97 H 14 123/88 07/09/18 18:11 96 H 19 123/88 07/09/18 18:01 87 18 123/88 07/09/18 17:51 86 21 123/88 07/09/18 17:41 88 22 123/88 07/09/18 17:31 84 16 131/87 07/09/18 17:21 91 H 30 H 111/81 07/09/18 17:11 92 H 17 111/81 03/02/19 17:01 91 H 19 111/81 03/02/19 16:51 97 H 21 111/81 03/02/19 16:41 91 H 18 111/81 03/02/19 16:31 106 H 17 111/81 03/02/19 16:21 91 H 19 111/81 03/02/19 16:11 89 15 111/81 03/02/19 16:01 101 H 16 111/81 03/02/19 16:00 97.4 F L 95 H 18 03/02/ 15:51 92 H 17 111/81 03/02/19 15:41 90 16 111/81 03/02/19 15:31 101 H 18 111/81 03/02/ 15:21 79 14 111/81 03/02/ 15:11 81 13 111/81 03/02/ 15:05 87 16 // 15:01 76 13 111/81 03/02/ 14:55 85 15 /02/ 14:51 79 15 111/81 03/02/ 14:41 92 H 17 111/81 03/02/ 14:31 83 22 111/81 03/02/ 14:21 92 H 20 111/81 03/02/ 14:11 89 18 111/81 03/02/ 14:01 89 17 111/81 03/02/ 13:51 89 18 111/81 03/02/ 13:41 83 19 111/81 03/02/19 13:31 78 15 111/81 03/02/ 13:21 84 19 111/81 03/02/ 13:11 94 H 18 111/81 03/02/19 13:01 82 17 111/81 03/02/ 12:51 80 17 111/81 03/02/19 12:41 83 17 111/81 03/02/ 12:31 81 16 111/81 03/02/ 12:21 86 18 111/81 03/02/ 12:11 85 19 111/81 03/02/19 12:01 87 17 111/81 03/02/19 12:00 98.6 F 95 H 18 Pulse Ox /03 09:21 94 03/03 09:11 94 /03 09:00 91 03/03/19 08:51 94 07/10/18 08:41 94 07/10/18 08:31 95 07/10/18 08:21 95 07/10/18 08:11 97 07/10/18 08:01 100 07/10/18 08:00 96 07/10/18 07:51 100 07/10/18 07:48 96 07/10/18 07:47 07/10/18 07:41 96 07/10/18 07:31 96 07/10/18 07:21 96 07/10/18 07:11 95 07/10/18 07:01 96 07/10/18 06:51 96 07/10/18 06:41 95 07/10/18 06:31 94 07/10/18 06:21 96 07/10/18 06:11 95 07/10/18 06:01 94 07/10/18 05:51 96 07/10/18 05:41 95 07/10/18 05:31 95 07/10/18 05:21 95 07/10/18 05:11 96 07/10/18 05:01 91 07/10/18 04:51 95 07/10/18 04:41 94 07/10/18 04:31 95 07/10/18 04:21 93 07/10/18 04:11 96 07/10/18 04:01 96 07/10/18 04:00 95 07/10/18 03:51 97 07/10/18 03:41 97 07/10/18 03:31 96 07/10/18 03:21 97 07/10/18 03:11 97 07/10/18 03:01 97 07/10/18 02:51 96 07/10/18 02:41 98 07/10/18 02:31 97 07/10/18 02:21 97 07/10/18 02:11 97 07/10/18 02:01 97 07/10/18 01:51 96 07/10/18 01:41 96 07/10/18 01:31 97 07/10/18 01:21 96 07/10/18 01:11 96 07/10/18 01:01 96 07/10/18 00:50 97 07/10/18 00:42 97 07/10/18 00:31 97 07/10/18 00:21 96 03/03/19 00:11 96 07/10/18 00:01 95 07/10/18 00:00 97 07/09/18 23:50 97 07/09/18 23:41 97 07/09/18 23:31 96 07/09/18 23:21 97 07/09/18 23:11 95 07/09/18 23:01 97 07/09/18 22:51 96 07/09/18 22:41 95 07/09/18 22:31 95 07/09/18 22:21 93 07/09/18 22:11 96 07/09/18 22:01 96 07/09/18 21:51 96 07/09/18 21:41 97 07/09/18 21:31 96 07/09/18 21:24 07/09/18 21:21 100 07/09/18 21:19 07/09/18 21:11 97 07/09/18 21:01 97 07/09/18 20:51 96 07/09/18 20:11 100 07/09/18 20:01 99 07/09/18 20:00 96 07/09/18 19:51 96 07/09/18 19:41 95 07/09/18 19:31 94 07/09/18 19:21 97 07/09/18 19:11 98 07/09/18 19:01 98 07/09/18 18:51 97 07/09/18 18:41 98 07/09/18 18:31 97 07/09/18 18:21 96 07/09/18 18:11 96 07/09/18 18:01 96 07/09/18 17:51 97 07/09/18 17:41 95 07/09/18 17:31 94 07/09/18 17:21 96 07/09/18 17:11 95 07/09/18 17:01 97 07/09/18 16:51 96 07/09/18 16:41 96 07/09/18 16:31 93 07/09/18 16:21 95 07/09/18 16:11 94 07/09/18 16:01 95 07/09/18 16:00 97 07/09/18 15:51 96 07/09/18 15:41 96 07/09/18 15:31 100 07/09/18 15:21 100 07/09/18 15:11 100 07/09/18 15:05 07/09/18 15:01 100 07/09/18 14:55 07/09/18 14:51 94 07/09/18 14:41 93 07/09/18 14:31 93 07/09/18 14:21 96 07/09/18 14:11 96 07/09/18 14:01 96 07/09/18 13:51 97 07/09/18 13:41 95 07/09/18 13:31 95 07/09/18 13:21 95 07/09/18 13:11 93 07/09/18 13:01 93 07/09/18 12:51 94 07/09/18 12:41 93 07/09/18 12:31 95 07/09/18 12:21 95 07/09/18 12:11 95 07/09/18 12:01 96 07/09/18 12:00 97 Intake and Output 07/09/18 07/10/18 07/10/18 22:59 06:59 14:59 Intake Total 200 Balance 200 Intake: IV 200 FLAGYL 500 MG/100 ML 500 100 mg In 100 ml @ 100 mls/hr IV Q8HR [facility] Rx#: [id number] MAXIPIME/NS 2 GM/100 ML 2 100 gm In 100 ml @ 200 mls/ hr IV Q8HR [facility] Rx#: [id number] Other: Voiding Method Toilet Toilet Toilet - Exam Breasts: Present: normal Cardiovascular: Present: Regular rate Lungs: Present: Normal air movement Abdomen: Present: normal appearance, soft, normal bowel sounds Uterus: Present: normal, firm, fundal height below umbilicus Extremities: Present: normal Incision: Present: erythematous, skin , other (incision draing copious amts of serosnaguious fluid RN states they are chging dressing and wound care is to see pt.) - Labs Labs: Abnormal lab results 07/10/18 07/10/18 Range/Units 05:32 05:32 RBC 3.12 L (3.65-5.03) M/mm3 Hgb 9.8 L (10.1-14.3) gm/dl Hct 28.9 L (30.3-42.9) % Plt Count 545 H (140-440) K/mm3 Creatinine 0.4 L (0.7-1.2) mg/dL Calcium 7.8 L (8.4-10.2) mg/dL
[2018-07-10] MEDS: D5LR 1,000 ML IV SCH (16:51)
[2018-07-11] MEDS: PERCOCET 5/325 PO PRN ×2 (00:55→11:57)
[2018-07-11] MEDS: D5LR 1,000 ML IV SCH ×2 (03:15→14:09)
[2018-07-11] MEDS: FLAGYL 500 MG/100 ML 500 MG/100 ML BAG IV SCH ×2 (03:22→10:02)
[2018-07-11] MEDS: MAXIPIME/NS 2 GM/100 ML 2 GM/100 ML BAG IV SCH (06:37)
[2018-07-11] MEDS: PROVENTIL IH SCH ×4 (07:09→20:49)
--- NOTE | 2018-07-11 08:02 | Progress Note ---
Assessment and Plan Patient resting in bed, no complaints other than "tired". Patient reports minimal lochia. Pain is well controlled. VSS, afebrile. Unable to assess incision as dressing is in place. Dressing is clean, dry, intact. Abdominal binder on. Wound care to see patient today to assess abdominal incision. Subjective - Subjective Date of service: 07/11/18 Principal diagnosis: POD 11; s/p emergency c/s, abruption, + UDS, transfusion, sepsis, inc dehis Patient reports: appetite normal, voiding normally, pain well controlled Objective - Vital Signs Latest vital signs: Vital Signs Temp Pulse Pulse Pulse Resp Resp BP 07/11/18 04:15 98.2 F 76 20 07/11/18 00:00 98.7 F 71 20 07/10/18 23:45 82 125/71 07/10/18 21:45 85 18 07/10/18 21:35 86 18 07/10/18 20:05 77 136/94 07/10/18 20:00 98.8 F 88 20 07/10/18 16:50 98.7 F 82 20 123/87 07/10/18 14:10 98.6 F 84 20 127/86 07/10/18 12:40 98.6 F 93 H 20 07/10/18 12:01 101 H 21 124/85 07/10/18 11:51 92 H 18 124/85 07/10/18 11:41 87 17 124/85 07/10/18 11:31 86 16 124/85 07/10/18 11:20 81 16 124/85 07/10/18 11:11 88 19 124/85 07/10/18 11:00 89 17 124/85 07/10/18 10:51 83 18 124/85 07/10/18 10:41 87 23 124/85 07/10/18 10:31 90 23 124/85 07/10/18 10:20 116 H 26 H 124/85 07/10/18 10:10 114 H 22 124/85 07/10/18 10:00 89 12 124/85 07/10/18 09:50 98 H 19 113/75 07/10/18 09:41 80 15 113/75 07/10/18 09:31 81 17 113/75 07/10/18 09:21 78 16 113/75 07/10/18 09:11 83 18 113/75 07/10/18 09:00 78 19 113/75 07/10/18 08:51 83 15 105/68 07/10/18 08:41 82 23 113/76 07/10/18 08:31 82 16 113/76 07/10/18 08:21 75 20 113/76 07/10/18 08:11 78 17 113/76 07/10/18 08:01 71 15 113/76 07/10/18 08:00 98.4 F 84 19 BP Pulse Ox 07/11/18 04:15 115/67 93 07/11/18 00:00 125/71 90 07/10/18 23:45 92 07/10/18 21:45 07/10/18 21:35 07/10/18 20:05 96 07/10/18 20:00 136/94 96 07/10/18 16:50 96 07/10/18 14:10 93 07/10/18 12:40 127/86 93 07/10/18 12:01 07/10/18 11:51 07/10/18 11:41 97 07/10/18 11:31 97 07/10/18 11:20 97 07/10/18 11:11 96 07/10/18 11:00 95 07/10/18 10:51 96 07/10/18 10:41 96 07/10/18 10:31 96 07/10/18 10:20 98 07/10/18 10:10 96 07/10/18 10:00 94 07/10/18 09:50 96 07/10/18 09:41 93 07/10/18 09:31 94 07/10/18 09:21 94 07/10/18 09:11 94 07/10/18 09:00 91 07/10/18 08:51 94 07/10/18 08:41 94 07/10/18 08:31 95 07/10/18 08:21 95 07/10/18 08:11 97 07/10/18 08:01 100 07/10/18 08:00 96 Intake and Output 07/10/18 07/10/18 07/11/18 15:59 23:59 07:59 Intake Total 780 1120 Output Total 800 300 Balance -20 820 Intake: IV 300 1000 D5lr 1,000 ml @ 125 mls/ 1000 hr IV DIRECT [facility] Rx#: [id number] FLAGYL 500 MG/100 ML 500 100 mg In 100 ml @ 100 mls/hr IV Q8HR [facility] Rx#: [id number] MAXIPIME/NS 2 GM/100 ML 2 200 gm In 100 ml @ 200 mls/ hr IV Q8HR [facility] Rx#: [id number] Oral 240 120 Intake, Free Water 240 Output: Urine 800 300 Void 800 300 Other: Total, Intake Amount 240 120 Total, Output Amount 800 300 Voiding Method Toilet # Voids Void 1 - Exam Breasts: Present: normal Cardiovascular: Present: Regular rate, Normal S1, Normal S2 Lungs: Present: Clear to auscultation Abdomen: Present: normal appearance, soft, normal bowel sounds Extremities: Present: normal Incision: Present: dressed (dressing clean, dry. intact. abdominal binder in place)
[2018-07-11] MEDS: HABITROL TD SCH (10:59)
[2018-07-11] MEDS: ZITHROMAX PO SCH (11:00)
--- NOTE | 2018-07-11 11:58 | Progress Note ---
Assessment and Plan Cultures: Blood culture 07/03/2018 Prevotella loescheii 2 of 4 bottles Blood culture 07/04/2018 negative so far Urine culture 07/03/2018 10-100K multiple sp Blood culture 07/06/2018 negative so far Wound culture 07/08/2018 no growth today Assessment: 28 y/o female with a history of tobacco, marihuana, meth abuse; admitted on 06/30/2018 at 30 weeks of , due to acute onset of copious vaginal bleed. Patient was found to have placental abruption and underwent emergent on 06/30/2018: 1) Sepsis: fever resolved; etio. Prevotella bacteremia started on flagyl.. 2) Prevotella bacteremia: Blood culture 07/03/2018 Prevotella loescheii 2 of 4 bottles 2 of 4 bottles. Repeat blood culture 07/04/2018 negative. Unclear source ? placenta abruption/recent C section, Prevotella it is usually a vaginal or bowel gorge. Flagyl IV added on 07/06. Noted wound became dehiscent. Wound culture no growth so far. 3) Bilateral pneumonia: Patient has 3 small kids and they have been sick with "cold symptoms". She reports that she and her partner both has been coughing up for 1-2 weeks. CXR initial negative. CTA chest 07/03 showed diffuse pneumonia with the greater involvement in the left lower lobe, no evidence of acute PE, moderate amount of free fluid in the left upper quadrant of the abdomen associated with omental graying. Likely CAP versus post-influenza pneumonia versus HAP. 4) UTI: UA 06/30 neg. Repeat UA 07/03 moderate LE, wbc 110. ?riojas-associated. Urine culture 07/03/2018 10-100K multiple sp Recommendations: - continue flagyl D6 of 10 cover Prevotella - stop cefepime D7 of 7 - stop azithromycin D6 - continue wound care Ok to d/c home from ID stand point to continue flagyl 500 mg PO TID total 10 days until 07/15/2018 Will follow. Sailaja Puentes MD Infectious Diseases Shift Superintendent [facility] M [phone] O [phone] Subjective Date of service: 07/11/18 Principal diagnosis: POD 11; s/p emergency c/s, abruption, + UDS, transfusion, sepsis, inc dehis Interval history: Feels better, no fever for 4 days. Denies SOB or cough. Wound site minimal pain Review of Systems: General:no fever, chills Cutaneous: no rash, pruritus Respiratory: no cough, chest pain, SOB Gastrointestinal: no nausea, vomiting, diarrhea \\ Objective - Exam Narrative Exam: General appearance: Alert in NAD, conversant Eyes: anicteric sclerae, moist conjunctivae; no lid-lag; PERRLA HENT: Atraumatic; oropharynx clear with moist mucous membranes and no mucosal ulcerations/no oral thrush; normal hard and soft palate. Normal external ears. Neck: Trachea midline; supple, no thyromegaly or lymphadenopathy Lungs: CTA brad CV: RRR Abdomen: Soft, non-tender; Csection wound open to left side Extremities: No peripheral edema or extremity lymphadenopathy Skin: Normal temperature, turgor and texture; no rash, ulcers or subcutaneous nodules Psych: Appropriate affect, alert and oriented to person, place and time. Neuro: alert and oriented x 3. Moving all extermities - Constitutional Vitals: Vital Signs Temp Pulse Resp BP Pulse Ox 98.3 F 72 14 107/62 92 07/11/18 07:22 07/11/18 09:37 07/11/18 09:37 07/11/18 07:22 07/11/18 07:22 Temperature -Last 24 Hours Temperature 98.3 F Temperature 98.2 F Temperature 98.7 F Temperature 98.8 F Temperature 98.7 F Temperature 98.6 F Temperature 98.6 F - Labs CBC & Chem 7: 07/10/18 05:32 07/10/18 05:32
[2018-07-11] MEDS ORDERED: FLAGYL PO SCH (14:00)
--- NOTE | 2018-07-11 14:42 | Progress Note ---
Assessment and Plan Assessment and plan: Patient is a 28 yo woman with a history of tobacco and illegal drug use who presented to [facility] ED with heavy vaginal bleeding and was admitted by PHARMACY RETAIL SUPPORT SPECIALIST, Dr. Mathur, on 06/30/18 at 20 weeks . She was found to have Placentral Abruption and was taken to surgery. Patient became febrile and it appears [facility] 07[facility]04/18. Also, She was found to have Amphetamines and THC on admission Urine drug screen * Initial Temp of 100.5, tachycardic, tachypenic but nomotensive * D-Dimer elevated at 1719, normal pro-bnp today, UA showing pyuria * CTA chest Impression: Finding are consistent with diffuse pneumonia with the greater involvement in the left lower lobe, no evidence of acute PE, moderate amount of free fluid in the left upper quadrant of the abdomen associated with omental graying, correlation with surgical history is recommended. Cultures Blood culture 07/03/2018 Prevotella loescheii 2 of 4 bottles Blood culture 07/04/2018 negative so far Urine culture 07/03/2018 10-100K multiple sp -Sepsis, UTI and Bilateral pneumonia, HR 101 and WBC 3.2, so SIRS with organ dysfunction was poa: iv rocephin initiated, consulted ID, follow blood culture which is showing GNR, so i added IV Cefepime and ID added azithomycin; Sepsis: fever resolved; etio. Prevotella bacteremia started on flagyl.. -Prevotella loescheii bacteremia: added Flagyl -Elevated D-Dimer, such a wide differential diagnosis in this patient: CTA chest shows diffuse pneumonia LLL, no PE -Acute blood loss anemia due to Placental Abruption s/p 2 units transfused so far, h/h stable -Tobacco and Amphetamine in UDS: counseling done -Severe malnutrition, albumin 1.9, most likely poa: consult Vamp Strap Ironer, add regular diet -DVT prophylaxis: Hold A/C due to recent bleeding, encourage ambulation -last fever was 07/08/18 at 0400, 101.5F ID is following, added tamiflu, treated with Ibuprofen for high fevers Ok to d/c home from ID stand point to continue flagyl 500 mg PO TID total 10 days until 07/15/2018 History Interval history: Patient was seen and examined. Follow-up on current diagnosis of sepsis. SOB resolved, she is walking around room without problems. Overnight uneventful febrile. Patient denies any chest pain, nausea/vomiting or severe headaches. Imaging, nursing note, chart, labs and old chart reviewed. Discussed with patient. Hospitalist Physical - Physical exam Narrative exam: Gen: ill appearing, WDWN, NAD, Awake, Alert, Orientated HEENT: NCAT, EOMI, PERRL, OP Clear Neck: supple, no adenopathy, no thyromegaly, no JVD CVS/Heart: regular tachycardia, normal S1S2, pulses present bilaterally Chest/Lungs: tachypnea resolved, coarse bs bilaterally, Symmetrical chest expansion, good air entry bilaterally GI/Abdomen: soft, NTND, present bowel sounds, no guarding or rebound, suzanne j ust removed, wound looks c/d/i /Bladder: no suprapubic tenderness, no CVA or paraspinal tenderness Extermity/Skin: no c/c/e, no obvious rash MSK: FROM x 4 Neuro: CN 2-12 grossly intact, no new focal deficits Psych: calm - Constitutional Vitals: Temp Pulse Resp BP Pulse Ox 98.4 F 80 20 120/83 97 07/11/18 11:46 07/11/18 11:46 07/11/18 11:46 07/11/18 11:46 07/11/18 11:46 General appearance: Present: other (diaphoretic, lethargic, ) Results - Labs CBC & Chem 7: 07/10/18 05:32 07/10/18 05:32 Labs: Laboratory Last Values WBC 8.9 K/mm3 (4.5-11.0) 07/10/18 05:32 RBC 3.12 M/mm3 (3.65-5.03) L 07/10/18 05:32 Hgb 9.8 gm/dl (10.1-14.3) L 07/10/18 05:32 Hct 28.9 % (30.3-42.9) L 07/10/18 05:32 MCV 93 fl (79-97) 07/10/18 05:32 MCH 31 pg (28-32) 07/10/18 05:32 MCHC 34 % (30-34) 07/10/18 05:32 RDW 14.2 % (13.2-15.2) 07/10/18 05:32 Plt Count 545 K/mm3 (140-440) H 07/10/18 05:32 Lymph % (Auto) 25.8 % (13.4-35.0) 06/30/18 18:40 [place] % (Auto) 1.5 % (0.0-7.3) 06/30/18 18:40 Eos % (Auto) 1.5 % (0.0-4.3) 06/30/18 18:40 Baso % (Auto) 0.8 % (0.0-1.8) 06/30/18 18:40 Lymph # 0.8 K/mm3 (1.2-5.4) L 06/30/18 18:40 [place] # 0.0 K/mm3 (0.0-0.8) 06/30/18 18:40 Eos # 0.0 K/mm3 (0.0-0.4) 06/30/18 18:40 Baso # 0.0 K/mm3 (0.0-0.1) 06/30/18 18:40 Add Manual Diff Complete 07/05/18 10:03 Total Counted 100 07/05/18 10:03 Seg Neutrophils % 70.4 % (40.0-70.0) H 06/30/18 18:40 Seg Neuts % (Manual) 92.0 % (40.0-70.0) H 07/05/18 10:03 Band Neutrophils % 0 % 07/05/18 10:03 Lymphocytes % (Manual) 7.0 % (13.4-35.0) L 07/05/18 10:03 Reactive Lymphs % (Man) 0 % 07/05/18 10:03 Monocytes % (Manual) 1.0 % (0.0-7.3) 07/05/18 10:03 Eosinophils % (Manual) 0 % (0.0-4.3) 07/05/18 10:03 Basophils % (Manual) 0 % (0.0-1.8) 07/05/18 10:03 Metamyelocytes % 0 % 07/05/18 10:03 Myelocytes % 0 % 07/05/18 10:03 Promyelocytes % 0 % 07/05/18 10:03 Blast Cells % 0 % 07/05/18 10:03 Nucleated RBC % Not Reportable 07/05/18 10:03 Seg Neutrophils # 2.3 K/mm3 (1.8-7.7) 06/30/18 18:40 Seg Neutrophils # Man 9.0 K/mm3 (1.8-7.7) H 07/05/18 10:03 Band Neutrophils # 0.0 K/mm3 07/05/18 10:03 Lymphocytes # (Manual) 0.7 K/mm3 (1.2-5.4) L 07/05/18 10:03 Abs React Lymphs (Man) 0.0 K/mm3 07/05/18 10:03 Monocytes # (Manual) 0.1 K/mm3 (0.0-0.8) 07/05/18 10:03 Eosinophils # (Manual) 0.0 K/mm3 (0.0-0.4) 07/05/18 10:03 Basophils # (Manual) 0.0 K/mm3 (0.0-0.1) 07/05/18 10:03 Metamyelocytes # 0.0 K/mm3 07/05/18 10:03 Myelocytes # 0.0 K/mm3 07/05/18 10:03 Promyelocytes # 0.0 K/mm3 07/05/18 10:03 Blast Cells # 0.0 K/mm3 07/05/18 10:03 WBC Morphology Not Reportable 07/05/18 10:03 Hypersegmented Neuts Not Reportable 07/05/18 10:03 Hyposegmented Neuts Not Reportable 07/05/18 10:03 Hypogranular Neuts Not Reportable 07/05/18 10:03 Smudge Cells Not Reportable 07/05/18 10:03 Toxic Granulation Not Reportable 07/05/18 10:03 Toxic Vacuolation Not Reportable 07/05/18 10:03 Dohle Bodies Not Reportable 07/05/18 10:03 Pelger-Huet Anomaly Not Reportable 07/05/18 10:03 Ronak Rods Not Reportable 07/05/18 10:03 Platelet Estimate Consistent w auto 07/05/18 10:03 Clumped Platelets Not Reportable 07/05/18 10:03 Plt Clumps, EDTA Not Reportable 07/05/18 10:03 Large Platelets Not Reportable 07/05/18 10:03 Giant Platelets Not Reportable 07/05/18 10:03 Platelet Satelliting Not Reportable 07/05/18 10:03 Plt Morphology Comment Not Reportable 07/05/18 10:03 RBC Morphology Not Reportable 07/05/18 10:03 Dimorphic RBCs Not Reportable 07/05/18 10:03 Polychromasia Not Reportable 07/05/18 10:03 Hypochromasia Not Reportable 07/05/18 10:03 Poikilocytosis Not Reportable 07/05/18 10:03 Anisocytosis 1+ 07/05/18 10:03 Microcytosis Not Reportable 07/05/18 10:03 Macrocytosis Not Reportable 07/05/18 10:03 Spherocytes Not Reportable 07/05/18 10:03 Pappenheimer Bodies Not Reportable 07/05/18 10:03 Sickle Cells Not Reportable 07/05/18 10:03 Target Cells Not Reportable 07/05/18 10:03 Tear Drop Cells Not Reportable 07/05/18 10:03 Ovalocytes Not Reportable 07/05/18 10:03 Helmet Cells Not Reportable 07/05/18 10:03 [place] Bodies Not Reportable 07/05/18 10:03 [place] Rings Not Reportable 07/05/18 10:03 Greg Cells Not Reportable 07/05/18 10:03 Bite Cells Not Reportable 07/05/18 10:03 Crenated Cell Not Reportable 07/05/18 10:03 Elliptocytes Not Reportable 07/05/18 10:03 Acanthocytes (Spur) Not Reportable 07/05/18 10:03 Rouleaux Not Reportable 07/05/18 10:03 Hemoglobin C Crystals Not Reportable 07/05/18 10:03 Schistocytes Not Reportable 07/05/18 10:03 Malaria parasites Not Reportable 07/05/18 10:03 Ilya Bodies Not Reportable 07/05/18 10:03 Hem Pathologist Commnt No 07/05/18 10:03 PT 14.8 Sec. (12.2-14.9) 06/30/18 21:50 INR 1.09 (0.87-1.13) 06/30/18 21:50 APTT 27.9 Sec. (24.2-36.6) 06/30/18 21:50 D-Dimer 1719.47 ng/mlDDU (0-234) H 07/03/18 15:46 Sodium 140 mmol/L (137-145) 07/10/18 05:32 Potassium 4.1 mmol/L (3.6-5.0) 07/10/18 05:32 Chloride 103.0 mmol/L (98-107) 07/10/18 05:32 Carbon Dioxide 23 mmol/L (22-30) 07/10/18 05:32 Anion Gap 18 mmol/L 07/10/18 05:32 BUN 12 mg/dL (7-17) 07/10/18 05:32 Creatinine 0.4 mg/dL (0.7-1.2) L 07/10/18 05:32 Estimated GFR > 60 ml/min 07/10/18 05:32 BUN/Creatinine Ratio 30 % 07/10/18 05:32 Glucose 88 mg/dL (65-100) 07/10/18 05:32 Lactic Acid 1.60 mmol/L (0.7-2.0) 07/03/18 21:23 Uric Acid 4.4 mg/dL (3.5-7.6) 06/30/18 21:50 Calcium 7.8 mg/dL (8.4-10.2) L 07/10/18 05:32 Total Bilirubin 0.50 mg/dL (0.1-1.2) 07/05/18 09:38 AST 13 units/L (5-40) 07/05/18 09:38 ALT 9 units/L (7-56) 07/05/18 09:38 Alkaline Phosphatase 100 units/L (35-129) 07/05/18 09:38 NT-Pro-B Natriuret Pep 423.7 pg/mL (0-450) 07/03/18 15:46 Total Protein 4.9 g/dL (6.3-8.2) L 07/05/18 09:38 Albumin 1.9 g/dL (3.9-5) L 07/05/18 09:38 Albumin/Globulin Ratio 0.6 % 07/05/18 09:38 Urine Color [place] (Yellow) 07/03/18 15:50 Urine Turbidity Slightly-cloudy (Clear) 07/03/18 15:50 Urine pH 7.0 (5.0-7.0) 07/03/18 15:50 Ur Specific [place] 1.027 (1.003-1.030) 07/03/18 15:50 Urine Protein 100 mg/dl mg/dL (Negative) 07/03/18 15:50 Urine Glucose (UA) Neg mg/dL (Negative) 07/03/18 15:50 Urine Ketones Neg mg/dL (Negative) 07/03/18 15:50 Urine Blood Mod (Negative) 07/03/18 15:50 Urine Nitrite Neg (Negative) 07/03/18 15:50 Urine Bilirubin Neg (Negative) 07/03/18 15:50 Urine Urobilinogen < 2.0 mg/dL (<2.0) 07/03/18 15:50 Ur Leukocyte Esterase Mod (Negative) 07/03/18 15:50 Urine WBC (Auto) 110.0 /HPF (0.0-6.0) H 07/03/18 15:50 Urine RBC (Auto) 7.0 /HPF (0.0-6.0) 07/03/18 15:50 U Epithel Cells (Auto) 13.0 /HPF (0-13.0) 07/03/18 15:50 Urine Bacteria (Auto) 1+ /HPF (Negative) 07/03/18 15:50 Urine Mucus 3+ /HPF 07/03/18 15:50 Urine Yeast (Budding) Few /HPF 07/03/18 15:50 Urine Opiates Screen Presumptive negative 07/03/18 15:50 Urine Methadone Screen Presumptive negative 07/03/18 15:50 Ur Barbiturates Screen Presumptive negative 07/03/18 15:50 Ur Phencyclidine Scrn Presumptive negative 07/03/18 15:50 Ur Amphetamines Screen Presumptive negative 07/03/18 15:50 U Benzodiazepines Scrn Presumptive negative 07/03/18 15:50 Urine Cocaine Screen Presumptive negative 07/03/18 15:50 U Marijuana (THC) Screen Presumptive positive 07/03/18 15:50 Drugs of Abuse Note Disclamer 07/03/18 15:50 RPR Nonreactive (Nonreactive) 07/01/18 09:54 Influenza A (Rapid) Negative (Negative) 07/08/18 12:47 Influenza A (RT-PCR) Negative (Negative) 07/08/18 12:47 Influenza B (Rapid) Negative (Negative) 07/08/18 12:47 Influenza B (RT-PCR) Negative (Negative) 07/08/18 12:47 Blood Type A POSITIVE 06/30/18 18:40 Antibody Screen Negative 06/30/18 18:40 Crossmatch See Detail 06/30/18 18:40 Nutrition/Malnutrition Assess - Dietary Evaluation Nutrition/Malnutrition Findings: Nutrition Notes Start: 07/06/18 12:46 Freq: Status: Active Protocol: Document 07/08/18 15:20 RM (Rec: 07/08/18 15:27 RM [id number]) Nutrition Notes Initial or Follow up Reassessment Current Diagnosis Sepsis Other Pertinent Diagnosis Pneu, UTI, marijuana & amphetamine abuse, vaginal bleeding,wound dehiscence Current Diet Regular Labs/Tests Reviewed Pertinent Medications Reviewed Height 5 ft 1 in Weight 60.328 kg [place] Body Weight (kg) 47.72 BMI 25.1 Subjective/Other Information Pt stated that her appetite is alright and that she eats 1/3 of her meals. Noted lunch at bedside with 1/3 eaten. Percent of energy/protein needs met: 51%/40% Burn Absent Trauma Absent #1 Nutrition Diagnosis Inadequate oral intake As Evidenced by Signs and Symptoms pt statement that she eats 1/3 of her meals Diagnosis Progress(for reassessment Worsened documentation) Is patient on ventilator? No Is Patient Ambulatory and/or Out of Bed No REE-([facility]-confined to bed) 1101.940 Calculation Used for Recommendations [facility] Additional Notes Protein: 72-90g (1.2-1.5 g/kg) Fluid: 1 ml/kcal Nutrition Intervention Change Diet Order: Continue current Add Supplement/Snack (indicate name/kcal Was not previosuly added. Add /protein ) Ensure Enlive Vanilla one daily Provides kCal: 350 Provides Protein (gm) 20 Goal #1 Meet at least 75-100% of needs via PO and ONS intake Anticipated Discharge Needs: Regular Follow-Up By: 07/12/18 Additional Comments Follow for PO and ONS intakes
--- NOTE | 2018-07-11 14:48 | Discharge Summary ---
Providers - Providers Date of Admission: 06/30/18 18:41 Date of discharge: 07/11/18 Attending physician: EMILI MATHUR 06/30/18 21:42 Consult to Case Management [CONS] Routine Services Needed at Discharge: Grounds Manager Notified:: [employer] Phone number called:: [phone] Was contact made?: Yes If yes, spoke with:: case nafisa amador. Time called:: 09:00 Additional Physician Instructions: abruption, amphetamines and marijuana Pt does not have custody of other children 07/03/18 15:15 Consult to Physician [CONS] Stat Comment: Consulting Provider: CANDELARIA HOWARD Physician Instructions: Reason For Exam: evaluate for sepsis 07/05/18 09:34 Consult to Physician [CONS] Routine Comment: Consulting Provider: FLEX HOOK Physician Instructions: I notified Reason For Exam: sepsis 07/06/18 11:34 Consult to Dietitian/Nutrition [CONS] Routine Physician Instructions: Reason For Exam: Reason for Consult: Malnutrition 07/08/18 08:41 Consult to Wound/ET Nurse [CONS] Urgent Reason For Exam: wound evaluation, defects, poss wouind vac 07/10/18 14:32 Consult to Wound/ET Nurse [CONS] Routine Reason For Exam: wound eval and to set up outpatient care Primary care physician: DANI GARCIA Hospitalization Condition: Stable Hospital course: Patient is a 28 yo woman with a history of tobacco and illegal drug use who presented to [facility] ED with heavy vaginal bleeding and was admitted by [employer] R[employer] OPERATOR, Dr. Mathur, on 06/30/18 at 20 weeks . She was found to have Placentral Abruption and was taken to surgery. Patient became febrile and it appears [facility] on 07/04/18. Also, She was found to have Amphetamines and THC on admission Urine drug screen * Initial Temp of 100.5, tachycardic, tachypenic but nomotensive * D-Dimer elevated at 1719, normal pro-bnp today, UA showing pyuria * CTA chest Impression: Finding are consistent with diffuse pneumonia with the greater involvement in the left lower lobe, no evidence of acute PE, moderate amount of free fluid in the left upper quadrant of the abdomen associated with omental graying, correlation with surgical history is recommended. Cultures Blood culture 07/03/2018 Prevotella loescheii 2 of 4 bottles Blood culture 07/04/2018 negative so far Urine culture 07/03/2018 10-100K multiple sp -Sepsis, UTI and Bilateral pneumonia, HR 101 and WBC 3.2, so SIRS with organ dysfunction was poa: iv rocephin initiated, consulted ID, follow blood culture which is showing GNR, so i added IV Cefepime and ID added azithomycin; Sepsis: fever resolved; etio. Prevotella bacteremia started on flagyl.. -Prevotella loescheii bacteremia: added Flagyl -Elevated D-Dimer, such a wide differential diagnosis in this patient: CTA chest shows diffuse pneumonia LLL, no PE -Acute blood loss anemia due to Placental Abruption s/p 2 units transfused so far, h/h stable -Tobacco and Amphetamine in UDS: counseling done -Severe malnutrition, albumin 1.9, most likely poa: consult Network Director, add regular diet -DVT prophylaxis: Hold A/C due to recent bleeding, encourage ambulation -last fever was 07/08/18 at 0400, 101.5F ID is following, added tamiflu, treated with Ibuprofen for high fevers Ok to d/c home from ID stand point to continue flagyl 500 mg PO TID total 10 days until 07/15/2018 Disposition: DC-01 TO HOME OR SELFCARE Time spent for discharge: 35 minutes Core Measure Documentation - Palliative Care Palliative Care/ Comfort Measures: Not Applicable - Core Measures Any of the following diagnoses?: none - VTE Discharge Requirements Deep Vein Thrombosis/Pulmonary Embolism Present on Admission: No Has pt received <5 days of overlap therapy or INR<2.0: No Anticoagulant overlap therapy prescribed at discharge: No Contraindication No Overlap Therapy order at DC: Not Indicated Exam - Physical Exam Narrative exam: Gen: ill appearing, WDWN, NAD, Awake, Alert, Orientated HEENT: NCAT, EOMI, PERRL, OP Clear Neck: supple, no adenopathy, no thyromegaly, no JVD CVS/Heart: regular tachycardia, normal S1S2, pulses present bilaterally Chest/Lungs: tachypnea resolved, coarse bs bilaterally, Symmetrical chest expansion, good air entry bilaterally GI/Abdomen: soft, NTND, present bowel sounds, no guarding or rebound, suzanne just removed, wound looks c/d/i /Bladder: no suprapubic tenderness, no CVA or paraspinal tenderness Extermity/Skin: no c/c/e, no obvious rash MSK: FROM x 4 Neuro: CN 2-12 grossly intact, no new focal deficits Psych: calm - Constitutional Vitals: Temp Pulse Resp BP Pulse Ox 98.4 F 80 20 120/83 97 07/11/18 11:46 07/11/18 11:46 07/11/18 11:46 07/11/18 11:46 07/11/18 11:46 Plan Activity: other (no strenous activity) Diet: low salt Special Instructions: smoking cessation Follow up with: DANI GARCIA MD [Primary Care Provider] - 7 Days FLEX HOOK MD [Staff Physician] - 7 Days Prescriptions: metroNIDAZOLE [Flagyl TAB] 500 mg PO TID #10 tablet Nicotine [Habitrol] 14 mg TD QDAY #14 patch oxyCODONE /ACETAMINOPHEN [Percocet 5/325 mg] 1 - 2 tab PO Q4HR PRN #30 tablet PRN Reason: Pain
--- NOTE | 2018-07-11 16:01 | Event Note ---
Date: 07/11/18 Cleared for discharge from OB per Dr. Albright. Patient scheduled for appointment at [facility] tomorrow, July 12, 2018 at 2pm for dressing change.
[2018-07-11 16:54] VITALS: BP 123/88
== END 2018-07-11 20:15 | disposition home or self-care (01) | DRG 765 ==
LOC: TRG 18:11 → APU 18:41 → OB 21:37 → IMCU 07-03 19:40 → OB 07-10 12:30
PROVIDERS: ADMIT Obstetrics & Gynecology; ATTEND Obstetrics & Gynecology
PROC: 10D00Z1 Extraction of Products of Conception, Low, Open Approach (ICD-10-PCS; principal; 2018-06-30)
PROC: 30233N1 Transfusion of Nonautologous Red Blood Cells into Peripheral Vein, Percutaneous Approach (ICD-10-PCS; 2018-07-02)
DX: O75.3 Other infection during labor (principal); O45.93 Premature separation of placenta, unspecified, third trimester; E43 Unspecified severe protein-calorie malnutrition; J18.9 Pneumonia, unspecified organism; A41.9 Sepsis, unspecified organism; O42.913 Preterm premature rupture of membranes, unspecified as to length of time between rupture and onset of labor, third trimester; D62 Acute posthemorrhagic anemia; O32.1XX0 Maternal care for breech presentation, not applicable or unspecified; O99.02 Anemia complicating childbirth; O99.334 Smoking (tobacco) complicating childbirth; O99.324 Drug use complicating childbirth; O25.2 Malnutrition in childbirth; F15.10 Other stimulant abuse, uncomplicated; F17.203 Nicotine dependence unspecified, with withdrawal; O99.52 Diseases of the respiratory system complicating childbirth; Z71.6 Tobacco abuse counseling; Z37.0 Single live birth; Z3A.30 30 weeks gestation of pregnancy; Z71.51 Drug abuse counseling and surveillance of drug abuser; Z88.2 Allergy status to sulfonamides; Z79.899 Other long term (current) drug therapy
CPT/HCPCS: 36415; 71046; 71275; 80048; 80053; 80307; 81001; 82140; 82565; 83880; 84450; 84460; 84550; 85007; 85014; 85018; 85025; 85027; 85379; 85610; 85730; 86592; 86850; 86900; 86901; 86920; 87040; 87086; 87116; 87400; 88307; 90686; 93005; 93010; 94640; 94760; G0378; 87502; C1765; J0330; J0690; J0692; J0696; J1170; J1885; J1940; J2270; J2405; J2590; J2704; J2710; J3010; J3370; J7030; J7040; J7050; J7120; J7121; P9016; Q9967

== ENCOUNTER 2018-07-15 10:01 | Outpatient (CLI) | payer MEDICAID ==
[2018-07-15] MEDS ORDERED: XYLOCAINE TOPICAL 4% TP ONE (11:00)
== END 2018-07-15 10:02 | disposition home or self-care (01) ==
LOC: WOUND 10:01
PROVIDERS: ATTEND Surgery
DX: O90.0 Disruption of cesarean delivery wound (principal); T59.814A Toxic effect of smoke, undetermined, initial encounter; Y92.89 Other specified places as the place of occurrence of the external cause
CPT/HCPCS: 99215; G0463

== ENCOUNTER 2018-07-17 11:50 | Inpatient (IN) | payer MEDICAID ==
--- NOTE | 2018-07-17 11:58 | Emergency Department Report ---
Blank Doc - Documentation Documentation: This is a 28-year-old female that presents with post incision sight pain and drainage. This initial assessment/diagnostic orders/clinical plan/treatment(s) is/are subject to change based on patient's health status, clinical progression and re- assessment by fellow clinical providers in the ED. Further treatment and workup at subsequent clinical providers discretion. Patient/guardians urged not to elope from the ED as their condition may be serious if not clinically assessed and managed. Initial orders include: 1- Patient sent to MAIN ED for further evaluation and treatment 2- labs
[2018-07-17 12:20] LABS: Basophils # (Auto) 0.1 K/mm3 (0.0-0.1); Eosinophils # (Auto) 0.2 K/mm3 (0.0-0.4); Eosinophils % (Auto) 1.9 % (0.0-4.3); Hematocrit 36.1 % (30.3-42.9); Hemoglobin 12.2 gm/dl (10.1-14.3); Lymphocytes # (Auto) 2.9 K/mm3 (1.2-5.4); Lymphocytes % (Auto) 32.5 % (13.4-35.0); Mean Corpuscular HGB Conc 34 % (30-34); Mean Corpuscular Volume 94 fl (79-97); Monocytes # (Auto) 0.6 K/mm3 (0.0-0.8); Monocytes % (Auto) 6.9 % (0.0-7.3); Platelet Count 978 K/mm3 (140-440); Red Blood Count 3.86 M/mm3 (3.65-5.03); Red Cell Distribution Width 14.7 % (13.2-15.2)
[2018-07-17 12:32] LABS: BUN/Creatinine Ratio 15; Blood Urea Nitrogen 9 mg/dL (7-17); Calcium 8.8 mg/dL (8.4-10.2); Hemolysis Index 6
[2018-07-17] MEDS ORDERED: NACL 0.9% 1000 ML 1,000 ML IV ONE (12:41)
[2018-07-17] MEDS ORDERED: ZOSYN/NS 4.5GM/100ML 4.5 GM/100 ML VIAL IV ONE (12:43)
--- NOTE | 2018-07-17 12:54 | Emergency Department Report ---
ED General Adult HPI - General Chief complaint: Wound/Laceration Stated complaint: C SECTION INCISION/INFECTED Time Seen by Provider: 07/17/18 11:56 Source: patient Mode of arrival: Ambulatory Limitations: No Limitations - History of Present Illness Initial comments: This a 28-year-old female who is a poor historian. She presents with a significant other who is asking me how she could have an infection today. In actuality, the patient has been treated for post operative infection option, with infectious disease consultation and has had recent admission and discharge on 07/11/2018. In any case she has been managed at the wound clinic yesterday. She was packed. She complains of mild pain at this time. She denies fever or chills. She has been moving her bowels and has had no nausea or vomiting. She states that she has had a large amount of yellow drainage from the wound this morning. -: hour(s) (recent episode of drainage was this morning) Radiation: non-radiation Severity scale (0 -10): 6 Quality: aching Improves with: none Worsens with: none Associated Symptoms: denies other symptoms Treatments Prior to Arrival: none - Related Data Previous Rx's Medication Instructions Recorded Last Taken Type 21/Iron Fu/Folic Acid 1 each PO DAILY #30 tablet 04/06/18 Unknown Rx [ Complete Caplet] oxyCODONE /ACETAMINOPHEN [Percocet 1 - 2 tab PO Q4HR PRN #30 tablet 06/30/18 Unknown Rx 5/325 mg] Acetaminophen [Acetaminophen TAB] 650 mg PO Q4H PRN #15 tablet 07/11/18 Unknown Rx Nicotine [Habitrol] 14 mg TD QDAY #14 patch 07/11/18 Unknown Rx metroNIDAZOLE [Flagyl TAB] 500 mg PO TID #10 tablet 07/11/18 Unknown Rx Allergies Allergy/AdvReac Type Severity Reaction Status Date / Time Sulfa (Sulfonamide Allergy Mild Rash Verified 07/17/18 11:51 Antibiotics) ED Review of Systems ROS: Stated complaint: C SECTION INCISION/INFECTED Other details as noted in HPI Constitutional: denies: chills, fever Eyes: denies: eye pain, eye discharge, vision change ENT: denies: ear pain, throat pain Respiratory: denies: cough, shortness of breath, wheezing Cardiovascular: denies: chest pain, palpitations Endocrine: no symptoms reported Gastrointestinal: abdominal pain (appears to be mild). denies: nausea, vomiting, diarrhea Genitourinary: denies: urgency, dysuria, discharge Musculoskeletal: denies: back pain, joint swelling, arthralgia Skin: as per HPI (purulent draining wound). denies: rash, lesions Neurological: denies: headache, weakness, paresthesias Psychiatric: denies: anxiety, depression Hematological/Lymphatic: denies: easy bleeding, easy bruising ED Past Medical Hx - Past Medical History Hx Hypertension: No Hx Heart Attack/AMI: No Hx Congestive Heart Failure: No Hx Diabetes: No Hx Deep Vein Thrombosis: No Hx Liver Disease: No Hx Renal Disease: No Hx Sickle Cell Disease: No Hx Seizures: No Hx Asthma: No Hx COPD: No Hx HIV: No Additional medical history: Preclampsia. - Surgical History Hx Pacemaker: No Hx Internal Defibrillator: No Additional Surgical History: - Social History Smoking Status: Current Every Day Smoker Substance Use Type: None - Medications Home Medications: Home Medications Medication Instructions Recorded Confirmed Last Taken Type 21/Iron Fu/Folic Acid 1 each PO DAILY #30 tablet 04/06/18 Unknown Rx [ Complete Caplet] oxyCODONE /ACETAMINOPHEN [Percocet 1 - 2 tab PO Q4HR PRN #30 tablet 06/30/18 Unknown Rx 5/325 mg] Acetaminophen [Acetaminophen TAB] 650 mg PO Q4H PRN #15 tablet 07/11/18 Unknown Rx Nicotine [Habitrol] 14 mg TD QDAY #14 patch 07/11/18 Unknown Rx metroNIDAZOLE [Flagyl TAB] 500 mg PO TID #10 tablet 07/11/18 Unknown Rx ED Physical Exam - General Limitations: No Limitations General appearance: alert, in no apparent distress - Head Head exam: Present: atraumatic, normocephalic - Eye Eye exam: Present: normal appearance. Absent: scleral icterus - ENT ENT exam: Present: mucous membranes moist - Neck Neck exam: Present: normal inspection. Absent: tenderness, meningismus - Respiratory Respiratory exam: Present: normal lung sounds bilaterally. Absent: respiratory distress - Cardiovascular Cardiovascular Exam: Present: regular rate, normal rhythm. Absent: systolic murmur, diastolic murmur, rubs, gallop - GI/Abdominal GI/Abdominal exam: Present: soft, normal bowel sounds, other (the lower abdo sukhjinder wound has a 2-3 cm gap. It was packed. There was brownish drainage which was moderately large in quantity. The packing was removed the wound was cultured.). Absent: distended, tenderness, guarding, rebound, rigid - Extremities Exam Extremities exam: Present: normal inspection - Back Exam Back exam: Present: normal inspection - Neurological Exam Neurological exam: Present: alert, oriented X3, CN II-XII intact. Absent: motor sensory deficit - Psychiatric Psychiatric exam: Present: normal affect, normal mood - Skin Skin exam: Present: warm, dry, intact, normal color. Absent: rash ED Course Vital Signs 07/17/18 11:57 Temperature 97.8 F Pulse Rate 80 Respiratory 16 Rate Blood Pressure 115/76 O2 Sat by Pulse 100 Oximetry - Reevaluation(s) Reevaluation #1: I discussed the case with Dr. Bernal. Do not feel that imaging would be previously helpful at this juncture. Therefore I consult to the second rigger first. They recommended to defer imaging for now and admit the patient to mother [facility]. She was given an initial dose of Zosyn and vancomycin. Her white count was not elevated. Thus far there is no other substantial laboratory abnormality nor evidence of systemic inflammatory response syndrome. 07/17/18 13:09 ED Medical Decision Making - Lab Data Result diagrams: 07/17/18 12:06 07/17/18 12:06 Laboratory Results - last 24 hr 07/17/18 07/17/18 12:06 12:06 WBC 8.9 RBC 3.86 Hgb 12.2 Hct 36.1 MCV 94 MCH 32 MCHC 34 RDW 14.7 Plt Count 978 H Lymph % (Auto) 32.5 [place] % (Auto) 6.9 Eos % (Auto) 1.9 Baso % (Auto) 1.0 Lymph # 2.9 [place] # 0.6 Eos # 0.2 Baso # 0.1 Seg Neutrophils % 57.7 Seg Neutrophils # 5.1 Sodium 141 Potassium 4.8 Chloride 102.4 Carbon Dioxide 26 Anion Gap 17 BUN 9 Creatinine 0.6 L Estimated GFR > 60 BUN/Creatinine Ratio 15 Glucose 105 H Calcium 8.8 Critical care attestation.: If time is entered above; I have spent that time in minutes in the direct care of this critically ill patient, excluding procedure time. ED Disposition Clinical Impression: Wound infection after surgery, Thrombocytosis Subcutaneous abscess Qualifiers: Site of cutaneous abscess: trunk Site of cutaneous abscess of trunk: abdominal wall Qualified Code(s): L02.211 - Cutaneous abscess of abdominal wall Disposition: OP ADMIT IP TO THIS HOSP Is pt being admited?: Yes Does the pt Need Aspirin: No Condition: Stable Referrals: MANUEL BOO MD [Primary Care Provider] - 3-5 Days Time of Disposition: 13:12
[2018-07-17] MEDS ORDERED: VANCOMYCIN PHARMACY TO DOSE IV SCH (13:00)
[2018-07-17] MEDS ORDERED: MORPHINE IV ONE (13:06)
[2018-07-17] MEDS ORDERED: VANCOMYCIN 1,250 MG in NACL 0.9% 250ML 250 ML IV ONE (13:15)
[2018-07-17 13:31] LABS: INR 0.99 (0.87-1.13); Partial Thromboplastin Time 27.1 Sec. (24.2-36.6)
[2018-07-17] MEDS ORDERED: BENADRYL IV ONE (13:39)
[2018-07-17] MEDS ORDERED: BENADRYL ONE (13:43)
[2018-07-17 13:51] LABS: Alanine Aminotransferase 13 units/L (7-56); Albumin 3.1 g/dL (3.9-5); BUN/Creatinine Ratio 18; Blood Urea Nitrogen 9 mg/dL (7-17); Calcium 8.5 mg/dL (8.4-10.2); Hemolysis Index 6
[2018-07-17 13:54] LABS: Bilirubin,Direct < 0.2 mg/dL (0-0.2)
[2018-07-17 14:26] LABS: Bacteria,Urine 1+ /HPF (Negative); Bilirubin,Urine NEG (Negative); Blood,Urine SM (Negative); Color,Urine Yellow (Yellow); Mucus,Urine FEW /HPF; Protein,Urine <15 mg/dL mg/dL (Negative); Urobilinogen,Urine < 2.0 mg/dL (<2.0)
[2018-07-17 14:45] LABS: Amphetamine Screen,Urine PRESUMPTIVE NEGATIVE; Benzodiazepines Screen,Urine PRESUMPTIVE NEGATIVE; Cannabinoid Screen,Urine PRESUMPTIVE NEGATIVE; Cocaine Screen,Urine PRESUMPTIVE NEGATIVE; Methadone Screen,Urine PRESUMPTIVE NEGATIVE; Opiate Screen,Urine PRESUMPTIVE NEGATIVE
[2018-07-17] MEDS ORDERED: NACL 0.9% 1000 ML IV ONE (15:07)
--- NOTE | 2018-07-17 15:35 | History and Physical Report ---
History of Present Illness Date of examination: 07/17/18 Date of admission: 07/17/18 13:54 Chief complaint: drainage from my incision History of present illness: Pt states she was seen in wound clinic on Wednesday07/15/18 and that dressing was changed at this time. On last pm noted to have large amount of yellow drainage. She nor fiance did not change the dressing that was already in place. As per ER provider pt had large amount of gauze in place with purlent drainage, odor, and brownish color. This was removed and not present when I was at pt bedside. Pt is s/p C/s on 06/30/18 at 30 weeks for abruption and post op course was complicated by pneumonia and wound separation. She spent some time in the step down unit and was d/c home from mother baby floor cleared by ID, Hospitalist and OB on 07/11/18 with f/u with [facility] providers on 07/12 and wound care clinic on 07/13. Pt kept all appointment and states until last night the incision was doing well. She denies any f/c/n/v. She is able to tolerate a regular diet at this time. Prior to d/c home all wound cx and blood cx were negative and she was to con't taking Flagly until 07/15/18. She states she still has tablets left but has been taking the meds daily.She denies any illicit drug use since d/c to home and reports she has been trying to keep the incision as clean and dry as possible. Past Medical History: Reviewed history from 07/08/2012 and no changes required: Negative Past Medical History Past Surgical History: Reviewed history from 10/12/2014 and no changes required: negative Past Medical History Abnormal PAP: negative VARSHA Exposure: negative Infertility: negative Uterine Anomaly: negative Uterine Surgery (not C/S): negative Other Gynecologic Problems: negative Social Hx: Patient is single +smoker no e/d Infection History Hx of STD: none HIV Risk Eval: low risk Personal hx. of genital herpes: no Partner hx. of genital herpes: yes Varicella/Chicken Pox Status: Immunized TB Risk: no Infection History Comments: Hx of HSV 2. Genetic History Congenital Heart Defect: Mom: no Dad: no [place] Disease: Mom: no Dad: no Thalassemia Mom: no Dad: no Neural Tube Defect Mom: no Dad: no Down's Syndrome Mom: no Dad: no Noah-Sachs Mom: no Dad: no Sickle Cell Disease/Trait Mom: no Dad: no Hemophilia Mom: no Dad: no Muscular Dystrophy Mom: no Dad: no Cystic Fibrosis Mom: no Dad: no [place] Chorea Mom: no Dad: no Mental Retardation Mom: no Dad: no Fragile X Mom: no Dad: no Other Genetic/Chromosomal Disorder Mom: no Dad: no Child w/other defect Mom: no Dad: yes Comments: "FOCs sister's children with disorders" Enviromental Exposures Xray Exposure: no Medication, drug, or alcohol use since LMP: no Chemical/Other Exposure: no Exposure to Cat Liter: no Hx of Parvovirus (Fifth Disease): no Occupational Exposure to Children: none Active Medications (reviewed today): PNV () Current Allergies (reviewed today): * SULFA (Critical) Past History Past Medical History: other (see hpi) Past Surgical History: other (see hpi) 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) Family/Genetic History: other (see hpi) Social history: other (see hpi) - Obstetrical History : 3 Medications and Allergies Allergies Allergy/AdvReac Type Severity Reaction Status Date / Time Sulfa (Sulfonamide Allergy Mild Rash Verified 07/17/18 11:51 Antibiotics) Home Medications Medication Instructions Recorded Confirmed Last Taken Type 21/Iron Fu/Folic Acid 1 each PO DAILY #30 tablet 04/06/18 Unknown Rx [ Complete Caplet] oxyCODONE /ACETAMINOPHEN [Percocet 1 - 2 tab PO Q4HR PRN #30 tablet 06/30/18 Unknown Rx 5/325 mg] Acetaminophen [Acetaminophen TAB] 650 mg PO Q4H PRN #15 tablet 07/11/18 Unknown Rx Nicotine [Habitrol] 14 mg TD QDAY #14 patch 07/11/18 Unknown Rx metroNIDAZOLE [Flagyl TAB] 500 mg PO TID #10 tablet 07/11/18 Unknown Rx - Vital Signs Vital signs: Vital Signs Temp Pulse Resp BP Pulse Ox 97.8 F 80 16 115/76 100 07/17/18 11:57 07/17/18 11:57 07/17/18 11:57 07/17/18 11:57 07/17/18 11:57 Temp Pulse Resp BP Pulse Ox 98.5 F 63 20 108/61 97 07/17/18 14:50 07/17/18 14:50 07/17/18 14:50 07/17/18 14:50 07/17/18 14:50 - Physical Exam Cardiovascular: Normal S1, Normal S2 Lungs: Positive: Clear to auscultation, Normal air movement Abdomen: Positive: normal appearance, soft, other (incision open to air w/o any dressing. 3-4 cm opening at left edge of incision with tracking beneath the skin the entire lenght of the incision to the right edge of the incision subQ. fascia is intact. There is not any purlent draiange or odor at this time. area i rrigated with sterile watere and fluffy gauze placed down in lenght of the defect for a tight packing. pt tolearted well. Nothing could be expressed from the incision at time of packing. Pt noted to have some bleeding prior to packing form good granuation tissue.). Negative: distention, tenderness, guarding Genitourinary (Female): Positive: other (deferred) Results Result Diagrams: 07/17/18 12:06 07/17/18 13:01 Abnormal lab results 07/17/18 07/17/18 07/17/18 Range/Units 12:06 12:06 13:01 Plt Count 978 H (140-440) K/mm3 Creatinine 0.6 L 0.5 L (0.7-1.2) mg/dL Glucose 105 H 103 H (65-100) mg/dL Total Protein 5.9 L (6.3-8.2) g/dL Albumin 3.1 L (3.9-5) g/dL Urine WBC (Auto) (0.0-6.0) /HPF 07/17/18 Range/Units 14:05 Plt Count (140-440) K/mm3 Creatinine (0.7-1.2) mg/dL Glucose (65-100) mg/dL Total Protein (6.3-8.2) g/dL Albumin (3.9-5) g/dL Urine WBC (Auto) 51.0 H (0.0-6.0) /HPF All other labs normal. Assessment and Plan - Patient Problems (1) Nicotine dependence Current Visit: No Status: Acute Qualifiers: Substance use status: in withdrawal Plan to address problem: -will start patch while admitted (2) Wound dehiscence, Current Visit: No Status: Acute Plan to address problem: -no s/sx of infection. will con't the antibx that were started in the ER. -Consult wound clinic to see if pt would benefit from wound vac as she had ex cessive drainage She did not change dressing as instructed also though she had the supplies. She did not state why.
[2018-07-17] MEDS ORDERED: SODIUM CHLORIDE FLUSH SYRINGE 10 ML IV PRN (15:51)
[2018-07-17] MEDS ORDERED: ZOFRAN IV PRN (15:51)
[2018-07-17] MEDS ORDERED: MILK OF MAGNESIA PO PRN (15:51)
[2018-07-17] MEDS ORDERED: TYLENOL PO PRN (15:51)
[2018-07-17] MEDS ORDERED: SODIUM CHLORIDE FLUSH SYRINGE 10 ML IV SCH (16:00)
[2018-07-17] MEDS: HABITROL TD SCH (19:32)
[2018-07-17] MEDS: NORCO 5/325 PO PRN (19:59)
--- NOTE | 2018-07-18 06:50 | Progress Note ---
Subjective Date of service: 07/18/18 (pt w/o complaint) Principal diagnosis: s/p section; wound infection Objective - Constitutional Vitals: Vital Signs - 12hr 07/17/18 07/17/18 07/18/18 19:59 20:25 00:55 Temperature 98.5 F 98.2 F Pulse Rate 68 72 Respiratory 20 14 18 Rate Blood Pressure 101/72 Blood Pressure 109/57 [Left] O2 Sat by Pulse 97 98 Oximetry 07/18/18 05:15 Temperature 98.4 F Pulse Rate 57 L Respiratory 18 Rate Blood Pressure 117/68 Blood Pressure [Left] O2 Sat by Pulse 97 Oximetry General appearance: Present: no acute distress - EENT Eyes: PERRL, EOM intact ENT: hearing intact, clear oral mucosa Ears: bilateral: normal - Neck Neck: supple, normal ROM - Respiratory Respiratory effort: normal Respiratory: bilateral: CTA - Breasts Breasts: normal - Cardiovascular Rhythm: regular Heart Sounds: Present: S1 & S2. Absent: gallop, rub Extremities: pulses intact, No edema, normal color, Full ROM - Gastrointestinal General gastrointestinal: Present: soft, non-tender, non-distended, normal bowel sounds Rectal Exam: deferred - Genitourinary Female genitourinary: deferred - Integumentary Integumentary: clear, warm, dry - Musculoskeletal Musculoskeletal: 1, strength equal bilaterally - Neurologic Neurologic: moves all extremities - Additional findings Additional findings: Abdominal dressing dry and intact. Wound cared for by nurse from Wound Care. Pt denies any pain, fever, discomfort. Will consult with . Pt is requesting a wound vac. - Labs CBC & Chem 7: 07/17/18 12:06 07/17/18 13:01 Labs: Abnormal lab results 07/17/18 07/17/18 07/17/18 Range/Units 12:06 12:06 13:01 Plt Count 978 H (140-440) K/mm3 Creatinine 0.6 L 0.5 L (0.7-1.2) mg/dL Glucose 105 H 103 H (65-100) mg/dL Total Protein 5.9 L (6.3-8.2) g/dL Albumin 3.1 L (3.9-5) g/dL Urine WBC (Auto) (0.0-6.0) /HPF 07/17/18 Range/Units 14:05 Plt Count (140-440) K/mm3 Creatinine (0.7-1.2) mg/dL Glucose (65-100) mg/dL Total Protein (6.3-8.2) g/dL Albumin (3.9-5) g/dL Urine WBC (Auto) 51.0 H (0.0-6.0) /HPF Medications & Allergies - Medications Allergies/Adverse Reactions: Allergies Sulfa (Sulfonamide Antibiotics) Allergy (Mild, Verified 07/17/18 11:51) Rash Home Medications: Home Medications Medication Instructions Recorded Confirmed Last Taken Type 21/Iron Fu/Folic Acid 1 each PO DAILY #30 tablet 04/06/18 Unknown Rx [ Complete Caplet] oxyCODONE /ACETAMINOPHEN [Percocet 1 - 2 tab PO Q4HR PRN #30 tablet 06/30/18 Unknown Rx 5/325 mg] Acetaminophen [Acetaminophen TAB] 650 mg PO Q4H PRN #15 tablet 07/11/18 Unknown Rx Nicotine [Habitrol] 14 mg TD QDAY #14 patch 07/11/18 Unknown Rx metroNIDAZOLE [Flagyl TAB] 500 mg PO TID #10 tablet 07/11/18 Unknown Rx Active Medications: Generic Name Dose Route Start Last Admin Trade Name Freq PRN Reason Stop Dose Admin Acetaminophen 650 mg 07/17/18 15:51 Tylenol PO Q4H PRN Pain MILD(1-3)/Fever >100.5/ROGERS Acetaminophen/Hydrocodone Bitart 2 each 07/17/18 19:41 07/17/18 19:59 [place] 5/325 PO 2 each Q4H PRN Administration Pain, Moderate (4-6) Ibuprofen 800 mg 07/17/18 19:41 Motrin PO Q6H PRN Pain, Mild (1-3) Magnesium Hydroxide 30 ml 07/17/18 15:51 Milk Of Magnesia PO Q4H PRN Constipation Nicotine 14 mg 07/17/18 17:00 07/17/18 19:32 Habitrol TD 14 mg QDAY BLANCA Administration Ondansetron HCl 4 mg 07/17/18 15:51 Zofran IV Q8H PRN Nausea And Vomiting Sodium Chloride 10 ml 07/17/18 16:00 Sodium Chloride Flush Syringe 10 Ml IV BID BLANCA Sodium Chloride 10 ml 07/17/18 15:51 Sodium Chloride Flush Syringe 10 Ml IV PRN PRN LINE FLUSH
[2018-07-18] MEDS: IBUPROFEN PO PRN (12:51)
[2018-07-18] MEDS: NORCO 5/325 PO PRN (14:30)
[2018-07-18] MEDS: HABITROL TD SCH (17:53)
[2018-07-19] MEDS: NORCO 5/325 PO PRN (01:13)
--- NOTE | 2018-07-19 08:35 | Progress Note ---
Assessment and Plan patient sitting up eating regular breakfast. no complaints. Wound vac in place. terrible odor present in room - unsure of source, smells biological in nature. Patient and s/o seem unaware. Will have housekeeping clean room and pull trash. RN aware. Case management to see patient, pt needs assistance with housing. - Patient Problems (1) Wound infection after surgery Current Visit: Yes Status: Acute Subjective - Subjective Date of service: 07/19/18 ([facility] [employer] note) Principal diagnosis: s/p section; wound infection Patient reports: appetite normal, voiding normally, pain well controlled, ambulating normally, no dizzy ambulation, no nauseated Objective - Vital Signs Latest vital signs: Vital Signs Temp Pulse Resp BP Pulse Ox 07/19/18 07:06 98.5 F 59 L 18 103/69 07/19/18 04:15 98.4 F 64 18 119/78 96 07/19/18 02:13 18 07/19/18 01:13 18 07/19/18 00:00 98.2 F 65 18 113/71 97 07/18/18 20:05 98.5 F 60 18 109/67 99 07/18/18 16:21 98.3 F 66 18 116/71 98 07/18/18 12:29 97.7 F 71 18 124/77 98 Intake and Output 07/18/18 07/19/18 07/19/18 23:59 07:59 15:59 Intake Total 490 720 Balance 490 720 Intake: IV 10 Left Hand 10 Oral 480 720 Other: Total, Intake Amount 480 360 Voiding Method Toilet # Voids Void 1 - Exam Breasts: Present: normal Cardiovascular: Present: Regular rate Lungs: Present: Clear to auscultation, Normal air movement Abdomen: Present: normal appearance, soft, normal bowel sounds Uterus: Present: normal Extremities: Present: normal Incision: Present: dressed (wound vac inplace) Comments: entire room filled with terrible odor - unsure of source. FOC in room.
[2018-07-19] MEDS: HABITROL TD SCH (10:16)
[2018-07-19] MEDS: IBUPROFEN PO PRN ×3 (10:17→23:50)
--- NOTE | 2018-07-19 16:50 | Event Note ---
Date: 07/19/18 Agree with MW exam and note. Pt currently does not have a place to go upon discharge. A list of shelters were provided at this time. Will con't admission at this time as it does no appear that pt has placement and would d/c with an open wound and no means to care for it.
[2018-07-20] MEDS: IBUPROFEN PO PRN ×2 (11:12→18:03)
[2018-07-20] MEDS: HABITROL TD SCH (11:13)
--- NOTE | 2018-07-20 19:45 | Progress Note ---
Subjective Date of service: 07/20/18 Principal diagnosis: s/p section; wound dehisence Interval history: Wound care will evaluate again tomorrow. Also consulted Dr. Church for 2nd opinion on wound management d/t social situation. Patient informed of plan of care Objective - Constitutional Vitals: Vital Signs - 12hr 07/20/18 07/20/18 08:04 11:48 Temperature 98.5 F 98.7 F Pulse Rate 65 73 Respiratory 20 18 Rate Blood Pressure 128/74 111/69 O2 Sat by Pulse 97 98 Oximetry - Labs CBC & Chem 7: 07/17/18 12:06 07/17/18 13:01 Medications & Allergies - Medications Allergies/Adverse Reactions: Allergies Sulfa (Sulfonamide Antibiotics) Allergy (Mild, Verified 07/17/18 11:51) Rash Home Medications: Home Medications Medication Instructions Recorded Confirmed Last Taken Type 21/Iron Fu/Folic Acid 1 each PO DAILY #30 tablet 04/06/18 07/18/18 Unknown Rx [ Complete Caplet] oxyCODONE /ACETAMINOPHEN [Percocet 1 - 2 tab PO Q4HR PRN #30 tablet 06/30/18 07/18/18 Unknown Rx 5/325 mg] Acetaminophen [Acetaminophen TAB] 650 mg PO Q4H PRN #15 tablet 07/11/18 07/18/18 Unknown Rx Nicotine [Habitrol] 14 mg TD QDAY #14 patch 07/11/18 07/18/18 Unknown Rx metroNIDAZOLE [Flagyl TAB] 500 mg PO TID #10 tablet 07/11/18 07/18/18 Unknown Rx Active Medications: Generic Name Dose Route Start Last Admin Trade Name Freq PRN Reason Stop Dose Admin Acetaminophen 650 mg 07/17/18 15:51 Tylenol PO Q4H PRN Pain MILD(1-3)/Fever >100.5/ROGERS Acetaminophen/Hydrocodone Bitart 2 each 07/17/18 19:41 07/19/18 01:13 [employer] 5/325 PO 2 each Q4H PRN Administration Pain, Moderate (4-6) Ibuprofen 800 mg 07/17/18 19:41 07/20/18 18:03 Motrin PO 800 mg Q6H PRN Administration Pain, Mild (1-3) Magnesium Hydroxide 30 ml 07/17/18 15:51 Milk Of Magnesia PO Q4H PRN Constipation Nicotine 14 mg 07/17/18 17:00 07/20/18 11:13 Habitrol TD 14 mg QDAY BLANCA Administration Ondansetron HCl 4 mg 07/17/18 15:51 Zofran IV Q8H PRN Nausea And Vomiting Sodium Chloride 10 ml 07/17/18 16:00 Sodium Chloride Flush Syringe 10 Ml IV BID BLANCA Sodium Chloride 10 ml 07/17/18 15:51 Sodium Chloride Flush Syringe 10 Ml IV PRN PRN LINE FLUSH
[2018-07-21] MEDS: NORCO 5/325 PO PRN ×3 (00:22→17:30)
[2018-07-21] MEDS: IBUPROFEN PO PRN ×2 (00:22→23:57)
--- NOTE | 2018-07-21 08:24 | Progress Note ---
Assessment and Plan patient resting, no complaints this morning. Dressing intact and connected to wound vac. - Patient Problems (1) Wound infection after surgery Current Visit: Yes Status: Acute Subjective - Subjective Date of service: 07/21/18 (CNM note) Principal diagnosis: s/p section; wound dehisence Patient reports: appetite normal, voiding normally, pain well controlled, ambulating normally, no dizzy ambulation, no nauseated Objective - Vital Signs Latest vital signs: Vital Signs Temp Pulse Resp BP Pulse Ox 07/21/18 06:06 97.6 F 54 L 20 121/69 97 07/21/18 02:20 98.2 F 64 20 117/71 98 07/20/18 21:02 98.6 F 70 20 133/84 99 07/20/18 19:40 18 07/20/18 11:48 98.7 F 73 18 111/69 98 Intake and Output 07/20/18 07/21/18 07/21/18 23:59 07:59 15:59 Intake Total 10 Balance 10 Intake: IV 10 Left Hand 10 Other: Voiding Method Toilet Toilet - Exam Breasts: Present: normal Cardiovascular: Present: Regular rate Lungs: Present: Clear to auscultation, Normal air movement Abdomen: Present: normal appearance, soft Uterus: Present: normal, firm, fundal height below umbilicus Incision: Present: normal, dry, dressed (connected to wound vac - dressing by wound care)
--- NOTE | 2018-07-21 10:02 | Consultation ---
History of Present Illness Consult date: 07/21/18 Chief complaint: wound - History of present illness History of present illness: 28 yo F s/p csection on 06/30/18 who's post op course was complicated by PNA for which she was treated. Patient states that after discharge her wound opened up. She was seen in the wound care clinic last week. She currently has a wound vac. The patient is doing well overall. Surgery is asked to see the patient for the wound. The patient has a difficult social situation and does not currently have a residence. She is unsure if she will be able to care for her wound as needed. She is unsure if her living situation will be resolved and if she will be able to charge the wound vac or perform her own dressing changes once she leaves the hospital. Pt also does not drive and has no way to get to the wound care clinic. Her significant other works two jobs and has been calling women's shelters to see if she can go there but has not had success. Past History Past Medical History: No medical history Past Surgical History: Social history: other (homeless) Family history: no significant family history Medications and Allergies Allergies Allergy/AdvReac Type Severity Reaction Status Date / Time Sulfa (Sulfonamide Allergy Mild Rash Verified 07/17/18 11:51 Antibiotics) Home Medications Medication Instructions Recorded Confirmed Last Taken Type 21/Iron Fu/Folic Acid 1 each PO DAILY #30 tablet 04/06/18 07/18/18 Unknown Rx [ Complete Caplet] oxyCODONE /ACETAMINOPHEN [Percocet 1 - 2 tab PO Q4HR PRN #30 tablet 06/30/18 07/18/18 Unknown Rx 5/325 mg] Acetaminophen [Acetaminophen TAB] 650 mg PO Q4H PRN #15 tablet 07/11/18 07/18/18 Unknown Rx Nicotine [Habitrol] 14 mg TD QDAY #14 patch 07/11/18 07/18/18 Unknown Rx metroNIDAZOLE [Flagyl TAB] 500 mg PO TID #10 tablet 07/11/18 07/18/18 Unknown Rx Active Meds: Active Medications Acetaminophen (Tylenol) 650 mg PO Q4H PRN PRN Reason: Pain MILD(1-3)/Fever >100.5/ROGERS Acetaminophen/Hydrocodone Bitart (Penrose 5/325) 2 each PO Q4H PRN PRN Reason: Pain, Moderate (4-6) Last Admin: 07/21/18 00:22 Dose: 2 each Documented by: Ibuprofen (Motrin) 800 mg PO Q6H PRN PRN Reason: Pain, Mild (1-3) Last Admin: 07/21/18 00:22 Dose: 800 mg Documented by: Magnesium Hydroxide (Milk Of Magnesia) 30 ml PO Q4H PRN PRN Reason: Constipation Nicotine (Habitrol) 14 mg TD QDAY BLANCA Last Admin: 07/20/18 11:13 Dose: 14 mg Documented by: Ondansetron HCl (Zofran) 4 mg IV Q8H PRN PRN Reason: Nausea And Vomiting Sodium Chloride (Sodium Chloride Flush Syringe 10 Ml) 10 ml IV BID BLANCA Sodium Chloride (Sodium Chloride Flush Syringe 10 Ml) 10 ml IV PRN PRN PRN Reason: LINE FLUSH Review of Systems All systems: negative (10 pt ROS performed and negative except for that listed in HPI) Exam Vital Signs Temp Pulse Resp BP Pulse Ox 97.8 F 80 16 115/76 100 07/17/18 11:57 07/17/18 11:57 07/17/18 11:57 07/17/18 11:57 07/17/18 11:57 Narrative exam: Gen: AAOx3. NAD CV: S1, S2+ Resp: even and unlabored Abd: soft, NT, ND. wound vac in place with good seal and no leak. Ext: no c/c/e Results - Labs 07/17/18 12:06 07/17/18 13:01 - Imaging Additional studies: photos of wound taken by library technician reviewed Assessment and Plan 28 yo F with open wound s/p csection 1. wound cultures are negative 2. continue wound vac I have discussed options for wound care with the patient. She does not have any sense of responsibility for her own care and seems unwilling to participate. Her boyfriend was present in the room during the conversation. He has been calling women's shelters to see if they can accept her. He also does not feel that she will be responsible enough to care for the wound. At this point, primary closure of the wound is out of the question as breakdown is highly likely. I urged them to think about the options. 1) She can either be discharged with wound vac and follow up in wound care center 2x per week for dressing changes. She will need to ensure the vac is charged and I stressed the importance of this to her. 2) She can be discharged and we will discontinue vac and start packing the wound. This will need to be changed 3x per week by the patient. 3) case management consulted to look into [facility] placement for shelter care. I urged the patient to think about this seriously and to make a decision today. At this point the wound is healing well but if she does not take this seriously, her wound will break down and become infected. D/W Dr. Mathur. Thank you, please call with questions.
--- NOTE | 2018-07-21 14:17 | Event Note ---
Date: 07/21/18 Patient stable. Reviewed with Dr. Whitfield's note. Patient states she is awaiting a list of places from social media sr strategy manager for her in the significant other to go to
[2018-07-21] MEDS: HABITROL TD SCH (17:36)
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
[2018-07-22] MEDS: IBUPROFEN PO PRN (16:14)
[2018-07-22] MEDS: HABITROL TD SCH (16:15)
[2018-07-22 19:07] VITALS: BP 125/81
== END 2018-07-22 18:36 | disposition home or self-care (01) | DRG 776 ==
LOC: ED 11:50 → OB 13:54
PROVIDERS: ADMIT Obstetrics & Gynecology; ATTEND Obstetrics & Gynecology
DX: O90.0 Disruption of cesarean delivery wound (principal); O99.335 Smoking (tobacco) complicating the puerperium; F17.200 Nicotine dependence, unspecified, uncomplicated; O86.00 Infection of obstetric surgical wound, unspecified; D47.3 Essential (hemorrhagic) thrombocythemia; L02.211 Cutaneous abscess of abdominal wall; Z88.2 Allergy status to sulfonamides; O72.3 Postpartum coagulation defects; Z79.899 Other long term (current) drug therapy
CPT/HCPCS: 36415; 80048; 80076; 80307; 81001; 82140; 85025; 85610; 85730; 87040; 87116; 96361; 96374; 96375; 99215; 99285; G0378; G0463; J1200; J2270; J2543; J3370; J7030; J7050

== ENCOUNTER 2018-07-26 09:06 | Outpatient (CLI) | payer MEDICAID ==
[2018-07-26] MEDS ORDERED: XYLOCAINE TOPICAL 4% TP ONE (09:30)
== END 2018-07-26 09:07 | disposition home or self-care (01) ==
LOC: WOUND 09:06
PROVIDERS: ATTEND Surgery
DX: T81.89XD Other complications of procedures, not elsewhere classified, subsequent encounter (principal); F17.200 Nicotine dependence, unspecified, uncomplicated; Y83.8 Other surgical procedures as the cause of abnormal reaction of the patient, or of later complication, without mention of misadventure at the time of the procedure
CPT/HCPCS: 99215; G0463

== ENCOUNTER 2018-08-09 09:24 | Outpatient (CLI) | payer MEDICAID ==
[2018-08-09] MEDS ORDERED: SILVER NITRATE TP ONE (10:00)
[2018-08-09] MEDS ORDERED: XYLOCAINE TOPICAL 4% TP ONE (10:00)
== END 2018-08-09 09:25 | disposition home or self-care (01) ==
LOC: WOUND 09:24
PROVIDERS: ATTEND Surgery
DX: T81.89XD Other complications of procedures, not elsewhere classified, subsequent encounter (principal); F17.200 Nicotine dependence, unspecified, uncomplicated; Y83.8 Other surgical procedures as the cause of abnormal reaction of the patient, or of later complication, without mention of misadventure at the time of the procedure
CPT/HCPCS: 99214; G0463

== ENCOUNTER 2018-08-16 09:30 | Outpatient (CLI) | payer MEDICAID ==
[2018-08-16] MEDS ORDERED: XYLOCAINE TOPICAL 4% TP ONE (10:00)
== END 2018-08-16 09:31 | disposition home or self-care (01) ==
LOC: WOUND 09:30
PROVIDERS: ATTEND Surgery
DX: T81.89XD Other complications of procedures, not elsewhere classified, subsequent encounter (principal); F17.200 Nicotine dependence, unspecified, uncomplicated; Y83.8 Other surgical procedures as the cause of abnormal reaction of the patient, or of later complication, without mention of misadventure at the time of the procedure

== ENCOUNTER 2018-08-19 14:28 | Emergency (ER) | payer MEDICAID ==
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
[2018-08-19] MEDS ORDERED: XYLOCAINE 2% INFILTRATI ONE (15:46)
--- NOTE | 2018-08-19 16:20 | Cat Scan Report ---
PROCEDURE: CT FACIAL BONES WO CON TECHNIQUE: Axial helical imaging through the face with sagittal and coronal reformatted images obtai hank. HISTORY: right orbital swelling, laceration above eyebrow COMPARISONS: None FINDINGS: There is a markedly displaced fracture of the medial wall of the right orbit with herniation of orbit al fat and the medial rectus muscle into the fracture defect. There is a moderately displaced fractures through the floor of the right orbit with herniation of orb ital fat into the fracture defect. There is right orbital and periorbital emphysema. There is a possible mildly displaced fracture through the roof of the right ethmoid sinus/floor of th e right anterior cranial fossa at the junction with the right orbital roof. There is partial opacification of the ethmoid sinuses bilaterally and a moderate sized to large air-f luid level with Hounsfield units consistent with blood products in the right maxillary sinus. There appears to be a mildly displaced right nasal bone fracture. IMPRESSION: 1. Displaced fracture is medial wall and floor of the right orbit with right orbital and periorbital emphysema. 2. Possible mildly displaced fracture through the roof of the right ethmoid sinus/floor of the right anterior cranial fossa. Surveillance for possible CSF leak would be helpful. 3. Mildly displaced right nasal bone fracture. This document is electronically signed by Meryl Weaver MD., August 19 2018 04:18:05 PM ET
[2018-08-19 16:28] LABS: HCG Qualitative,Urine Negative (Negative)
[2018-08-19] MEDS ORDERED: PERCOCET 5/325 PO ONE (16:31)
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
[2018-08-19 18:01] VITALS: BP 122/88
== END 2018-08-19 18:15 | disposition other institution (70) ==
LOC: ED 14:28 → EEVIPCON 14:28 → ED 18:15
DX: S02.81XA Fracture of other specified skull and facial bones, right side, initial encounter for closed fracture (principal); S02.2XXA Fracture of nasal bones, initial encounter for closed fracture; S01.111A Laceration without foreign body of right eyelid and periocular area, initial encounter; S02.19XA Other fracture of base of skull, initial encounter for closed fracture; F17.200 Nicotine dependence, unspecified, uncomplicated; Z88.2 Allergy status to sulfonamides; Y04.2XXA Assault by strike against or bumped into by another person, initial encounter; Y93.89 Activity, other specified; Y92.89 Other specified places as the place of occurrence of the external cause; Y99.8 Other external cause status
CPT/HCPCS: 70486; 81025

== ENCOUNTER 2018-08-23 08:15 | Outpatient (CLI) | payer MEDICAID ==
[2018-08-23] MEDS ORDERED: XYLOCAINE TOPICAL 4% TP ONE (09:00)
== END 2018-08-23 08:16 | disposition home or self-care (01) ==
LOC: WOUND 08:15
PROVIDERS: ATTEND Surgery
DX: O90.0 Disruption of cesarean delivery wound (principal); T59.81 Toxic effect of smoke

== ENCOUNTER 2018-08-30 08:58 | Outpatient (CLI) | payer MEDICAID ==
[2018-08-30] MEDS ORDERED: XYLOCAINE TOPICAL 4% TP ONE (09:06)
[2018-08-30] MEDS ORDERED: SILVER NITRATE TP ONE (09:06)
== END 2018-08-30 08:59 | disposition home or self-care (01) ==
LOC: WOUND 08:58
PROVIDERS: ATTEND Surgery
DX: T81.89XD Other complications of procedures, not elsewhere classified, subsequent encounter (principal); F17.200 Nicotine dependence, unspecified, uncomplicated; Y83.8 Other surgical procedures as the cause of abnormal reaction of the patient, or of later complication, without mention of misadventure at the time of the procedure

== ENCOUNTER 2018-09-08 08:39 | Outpatient (CLI) | payer MEDICAID ==
[2018-09-08] MEDS ORDERED: XYLOCAINE TOPICAL 4% TP ONE (09:30)
== END 2018-09-08 08:40 | disposition home or self-care (01) ==
LOC: WOUND 08:39
PROVIDERS: ATTEND Surgery
DX: T81.89XD Other complications of procedures, not elsewhere classified, subsequent encounter (principal); F17.200 Nicotine dependence, unspecified, uncomplicated; Y83.8 Other surgical procedures as the cause of abnormal reaction of the patient, or of later complication, without mention of misadventure at the time of the procedure

== ENCOUNTER 2018-09-20 09:15 | Outpatient (CLI) | payer MEDICAID ==
[2018-09-20] MEDS ORDERED: SILVER NITRATE TP ONE (09:30)
[2018-09-20] MEDS ORDERED: XYLOCAINE TOPICAL 4% TP ONE (09:30)
== END 2018-09-20 09:16 | disposition home or self-care (01) ==
LOC: WOUND 09:15
PROVIDERS: ATTEND Surgery
DX: T81.89XD Other complications of procedures, not elsewhere classified, subsequent encounter (principal); F17.290 Nicotine dependence, other tobacco product, uncomplicated; Y83.8 Other surgical procedures as the cause of abnormal reaction of the patient, or of later complication, without mention of misadventure at the time of the procedure

== ENCOUNTER 2018-10-11 10:57 | Outpatient (CLI) | payer MEDICAID, OTHER ==
[2018-10-11] MEDS ORDERED: XYLOCAINE TOPICAL 4% TP ONE (11:08)
== END 2018-10-11 10:58 | disposition home or self-care (01) ==
LOC: WOUND 10:57
PROVIDERS: ATTEND Surgery
DX: T81.89XD Other complications of procedures, not elsewhere classified, subsequent encounter (principal); F17.290 Nicotine dependence, other tobacco product, uncomplicated; Y83.8 Other surgical procedures as the cause of abnormal reaction of the patient, or of later complication, without mention of misadventure at the time of the procedure

== ENCOUNTER 2018-10-30 05:14 | Emergency (ER) | payer OTHER ==
[2018-10-30 05:34] VITALS: BP 122/81
--- NOTE | 2018-10-30 08:00 | Emergency Department Report ---
- General Chief Complaint: Laceration/Recheck/Suture Stated Complaint: POST OP COMPLICATIONS Time Seen by Provider: 10/30/18 07:48 Source: patient Mode of arrival: Ambulatory Limitations: No Limitations - History of Present Illness Initial Comments: This 28-year-old female that comes to the hospital frequently for general care. She had in June of pain in and was seen by Dr. Gordon and wound care. She last saw wound care on 10/11/2018 and has been following wound care Dr. Ray since July for wound dehisced status post . Denies any fever or chills. Denies any nausea or vomiting. Denies any abdominal pain. She says that the wound has older and is draining and this why she came to the hospital what because she says she was supposed to go to the wound care center for wound care and her insurance lapsed. Pain is 2 out of 10 and Feels. To abdomen. Denies any abdominal bloating. Denies any back pain, cough, shortness of breath or chest pain. Onset/Timin -: month(s) - Related Data Previous Rx's Medication Instructions Recorded Last Taken Type 21/Iron Fu/Folic Acid 1 each PO DAILY #30 tablet 04/06/18 Unknown Rx [ Complete Caplet] oxyCODONE /ACETAMINOPHEN [Percocet 1 - 2 tab PO Q4HR PRN #30 tablet 06/30/18 Unknown Rx 5/325 mg] Acetaminophen [Acetaminophen TAB] 650 mg PO Q4H PRN #15 tablet 07/11/18 Unknown Rx Nicotine [Habitrol] 14 mg TD QDAY #14 patch 07/11/18 Unknown Rx metroNIDAZOLE [Flagyl TAB] 500 mg PO TID #10 tablet 07/11/18 Unknown Rx Clindamycin [Clindamycin CAP] 300 mg PO Q8H #30 cap 10/30/18 Unknown Rx Allergies Allergy/AdvReac Type Severity Reaction Status Date / Time Sulfa (Sulfonamide Allergy Mild Rash Verified 07/17/18 11:51 Antibiotics) ED Review of Systems ROS: Stated complaint: POST OP COMPLICATIONS Other details as noted in HPI ED Past Medical Hx - Past Medical History Previous Medical History?: Yes Hx Hypertension: No Hx Heart Attack/AMI: No Hx Congestive Heart Failure: No Hx Diabetes: No Hx Deep Vein Thrombosis: No Hx Liver Disease: No Hx Renal Disease: No Hx Sickle Cell Disease: No Hx Seizures: No Hx Asthma: No Hx COPD: No Hx HIV: No Additional medical history: Preclampsia. - Surgical History Past Surgical History?: Yes Hx Pacemaker: No Hx Internal Defibrillator: No Additional Surgical History: - Social History Smoking Status: Current Every Day Smoker Substance Use Type: None - Medications Home Medications: Home Medications Medication Instructions Recorded Confirmed Last Taken Type 21/Iron Fu/Folic Acid 1 each PO DAILY #30 tablet 04/06/18 07/18/18 Unknown Rx [ Complete Caplet] oxyCODONE /ACETAMINOPHEN [Percocet 1 - 2 tab PO Q4HR PRN #30 tablet 06/30/18 07/18/18 Unknown Rx 5/325 mg] Acetaminophen [Acetaminophen TAB] 650 mg PO Q4H PRN #15 tablet 07/11/18 07/18/18 Unknown Rx Nicotine [Habitrol] 14 mg TD QDAY #14 patch 07/11/18 07/18/18 Unknown Rx metroNIDAZOLE [Flagyl TAB] 500 mg PO TID #10 tablet 07/11/18 07/18/18 Unknown Rx Clindamycin [Clindamycin CAP] 300 mg PO Q8H #30 cap 10/30/18 Unknown Rx ED Physical Exam - General Limitations: No Limitations ED Course Vital Signs 10/30/18 05:18 Temperature 97.8 F Pulse Rate 86 Respiratory 18 Rate Blood Pressure 122/81 O2 Sat by Pulse 99 Oximetry ED Medical Decision Making - Lab Data Result diagrams: 10/30/18 07:37 10/30/18 07:37 Critical care attestation.: If time is entered above; I have spent that time in minutes in the direct care of this critically ill patient, excluding procedure time. ED Disposition Clinical Impression: Wound, surgical, infected Disposition: DC-01 TO HOME OR SELFCARE Is pt being admited?: No Does the pt Need Aspirin: No Condition: Stable Instructions: Wound Infection (ED), Chronic Wound Care (ED) Additional Instructions: Please follow up with Dr. Ray who was [facility] biomedical equipment support specialist. I spoke with him and he wants to recalls the wound care center this Wednesday to schedule an appointment for follow-up visit. Take antibiotic as prescribed Continue to do wound care per biomedical equipment support specialist If you develop fever, dizziness, chest pain, shortness of breath, increasing drainage or pain, please return to the emergency room otherwise follow-up as instructed Prescriptions: Clindamycin [Clindamycin CAP] 300 mg PO Q8H #30 cap Referrals: JASON DIEGO MD [Primary Care Provider] - 3-5 Days OTTO RAY MD [Staff Physician] - 10/31/18 [facility] [Outside] - 2-3 Days Forms: Work/School Release Form(ED)
[2018-10-30 08:13] LABS: Hematocrit 38.7 % (30.3-42.9); Mean Corpuscular HGB Conc 34 % (30-34); Mean Corpuscular Volume 91 fl (79-97); Platelet Count 250 K/mm3 (140-440); Red Blood Count 4.24 M/mm3 (3.65-5.03); Red Cell Distribution Width 13.1 % (13.2-15.2)
[2018-10-30 09:01] LABS: Alanine Aminotransferase 13 units/L (7-56); Albumin 4.2 g/dL (3.9-5); BUN/Creatinine Ratio 17; Blood Urea Nitrogen 12 mg/dL (7-17); Calcium 8.5 mg/dL (8.4-10.2); Hemolysis Index 7
[2018-10-30] MEDS ORDERED: CLEOCIN PO ONE (09:51)
== END 2018-10-30 10:01 | disposition home or self-care (01) ==
LOC: ED 05:14
DX: T81.49XA Infection following a procedure, other surgical site, initial encounter (principal); F17.200 Nicotine dependence, unspecified, uncomplicated; Z88.2 Allergy status to sulfonamides; Y92.89 Other specified places as the place of occurrence of the external cause
CPT/HCPCS: 36415; 80053; 82140; 85027; 87040; 87076; 87116; 87186

== ENCOUNTER 2018-11-01 09:40 | Outpatient (CLI) | payer SELFPAY | END 2018-11-01 09:41 | disposition home or self-care (01) | LOC: WOUND 09:40 | PROVIDERS: ATTEND Surgery | DX: T81.89XD Other complications of procedures, not elsewhere classified, subsequent encounter (principal); F17.290 Nicotine dependence, other tobacco product, uncomplicated; Y83.8 Other surgical procedures as the cause of abnormal reaction of the patient, or of later complication, without mention of misadventure at the time of the procedure | CPT/HCPCS: 99212; G0463 ==

== ENCOUNTER 2018-11-08 09:41 | Outpatient (CLI) | payer SELFPAY ==
[2018-11-08] MEDS ORDERED: SILVER NITRATE TP ONE (09:58)
[2018-11-08] MEDS ORDERED: XYLOCAINE TOPICAL 4% TP ONE (09:58)
== END 2018-11-08 09:42 | disposition home or self-care (01) ==
LOC: WOUND 09:41
PROVIDERS: ATTEND Surgery
DX: T81.31XD Disruption of external operation (surgical) wound, not elsewhere classified, subsequent encounter (principal); F17.200 Nicotine dependence, unspecified, uncomplicated; Y83.8 Other surgical procedures as the cause of abnormal reaction of the patient, or of later complication, without mention of misadventure at the time of the procedure

== ENCOUNTER 2018-11-15 09:49 | Outpatient (CLI) | payer MEDICAID ==
[2018-11-15] MEDS ORDERED: XYLOCAINE TOPICAL 4% TP ONE (10:00)
== END 2018-11-15 09:50 | disposition home or self-care (01) ==
LOC: WOUND 09:49
PROVIDERS: ATTEND Surgery
DX: T81.31XD Disruption of external operation (surgical) wound, not elsewhere classified, subsequent encounter (principal); F17.200 Nicotine dependence, unspecified, uncomplicated; Y83.8 Other surgical procedures as the cause of abnormal reaction of the patient, or of later complication, without mention of misadventure at the time of the procedure
CPT/HCPCS: 99214; G0463

== ENCOUNTER 2018-11-22 10:51 | Emergency (ER) | payer MEDICAID, OTHER ==
[2018-11-22 11:15] VITALS: BP 137/92
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
[2018-11-23 02:18] LABS: Bilirubin,Urine NEG (Negative); Blood,Urine LG (Negative); Color,Urine Amber (Yellow); Mucus,Urine 3+ /HPF; Urobilinogen,Urine < 2.0 mg/dL (<2.0)
== END 2018-11-22 12:49 | disposition left against medical advice (07) ==
LOC: ED 10:51
DX: S01.112A Laceration without foreign body of left eyelid and periocular area, initial encounter (principal); Z88.2 Allergy status to sulfonamides; Y04.0XXA Assault by unarmed brawl or fight, initial encounter; Y92.89 Other specified places as the place of occurrence of the external cause; Y93.89 Activity, other specified; Y99.8 Other external cause status; Z53.21 Procedure and treatment not carried out due to patient leaving prior to being seen by health care provider
CPT/HCPCS: 81001; 87076; 87086; 87186

== ENCOUNTER 2018-11-22 21:33 | Emergency (ER) | payer SELFPAY ==
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
[2018-11-22] MEDS ORDERED: IBUPROFEN PO ONE (22:22)
[2018-11-22] MEDS ORDERED: NACL 0.9% IR ONE (22:22)
[2018-11-23] MEDS ORDERED: IBUPROFEN PO ONE (02:08)
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
[2018-11-23 05:18] VITALS: BP 116/82
== END 2018-11-23 05:18 | disposition home or self-care (01) ==
LOC: ED 21:33
DX: S01.01XA Laceration without foreign body of scalp, initial encounter (principal); S01.81XA Laceration without foreign body of other part of head, initial encounter; F17.200 Nicotine dependence, unspecified, uncomplicated; Z79.899 Other long term (current) drug therapy; Z88.2 Allergy status to sulfonamides; W10.8XXA Fall (on) (from) other stairs and steps, initial encounter; Y93.89 Activity, other specified; Y92.009 Unspecified place in unspecified non-institutional (private) residence as the place of occurrence of the external cause; Y99.8 Other external cause status
CPT/HCPCS: 70450; 70486; 72125

== ENCOUNTER 2018-12-12 01:40 | Emergency (ER) | payer SELFPAY ==
[2018-12-12 02:25] LABS: Bilirubin,Urine NEG (Negative); Blood,Urine NEG (Negative); Color,Urine Yellow (Yellow); Mucus,Urine FEW /HPF; Protein,Urine <15 mg/dL mg/dL (Negative); Urobilinogen,Urine < 2.0 mg/dL (<2.0)
[2018-12-12 02:34] LABS: Basophils % (Auto) 0.3 % (0.0-1.8); Eosinophils # (Auto) 0.2 K/mm3 (0.0-0.4); Eosinophils % (Auto) 2.6 % (0.0-4.3); Hematocrit 41.9 % (30.3-42.9); Hemoglobin 13.9 gm/dl (10.1-14.3); Lymphocytes # (Auto) 2.5 K/mm3 (1.2-5.4); Lymphocytes % (Auto) 32.9 % (13.4-35.0); Mean Corpuscular HGB Conc 33 % (30-34); Mean Corpuscular Volume 92 fl (79-97); Monocytes # (Auto) 0.6 K/mm3 (0.0-0.8); Monocytes % (Auto) 7.5 % (0.0-7.3); Platelet Count 240 K/mm3 (140-440); Red Blood Count 4.57 M/mm3 (3.65-5.03); Red Cell Distribution Width 14.3 % (13.2-15.2)
[2018-12-12 02:50] LABS: Alanine Aminotransferase 10 units/L (7-56); Albumin 4.1 g/dL (3.9-5); BUN/Creatinine Ratio 17; Blood Urea Nitrogen 12 mg/dL (7-17); Calcium 8.6 mg/dL (8.4-10.2); Hemolysis Index 8
[2018-12-12] MEDS ORDERED: PEPCID IV ONE (03:22)
[2018-12-12] MEDS ORDERED: ZOFRAN IV ONE (03:22)
[2018-12-12] MEDS ORDERED: TORADOL IV ONE (03:22)
--- NOTE | 2018-12-12 04:39 | Cat Scan Report ---
CT of the abdomen and pelvis with contrast INDICATION: Lower abdominal pain and nausea COMPARISON: None FINDINGS: Lung bases are clear. The liver, spleen, pancreas, adrenal glands and kidneys all appear no rmal. No definite gallbladder or biliary tree abnormality. No fluid or adenopathy in the upper abdome n. CT of the pelvis shows 3.8 cm right ovarian cyst with adjacent free fluid. Left ovary is unremarkable with no uterine mass is seen. There may be slight thickening of a few distal small bowel loops could not exclude mild enteritis. No bowel obstruction or hernia. Colon contains large amount of stool sug gesting constipation. Appears to be the appendix is normal. IMPRESSION: 1. Right ovarian cyst with free fluid. 2. Possible mild enteritis. 3. Constipation. Automated exposure control was utilized to diminish radiation dose. Signer Name: Bairon Plaza MD Signed: 12/12/2018 4:35 AM Workstation Name: [id number]
--- NOTE | 2018-12-12 04:50 | Emergency Department Report ---
ED Abdominal Pain HPI - General Chief Complaint: Abdominal Pain Stated Complaint: ABD PAIN Time Seen by Provider: 12/12/18 03:10 Source: patient Mode of arrival: Ambulatory Limitations: No Limitations - History of Present Illness Initial Comments: Patient is a 28-year-old white female with no past medical history presents to the ED with complaint of acute onset persistent diffuse low abdominal pain with nausea for the last 1 week, which got worse in the last 2 days. Patient denies dizziness, fever, chills, diarrhea, vomiting, chest pain or shortness of breath, dysuria, urinary frequency and urgency, vaginal bleeding, vaginal discharge, low back pain or hematuria. MD Complaint: abdominal pain -: Sudden, week(s) (1) Location: LLQ, RLQ, suprapubic Radiation: none Migration to: no migration Severity: moderate Severity scale (0 -10): 6 Quality: aching, sharp Consistency: constant Improves With: nothing Worsens With: nothing Associated Symptoms: denies other symptoms, nausea. denies: diarrhea, fever, chills, constipation, dysuria, hematochezia, melena, hematuria, anorexia, syncope - Related Data Previous Rx's Medication Instructions Recorded Last Taken Type 21/Iron Fu/Folic Acid 1 each PO DAILY #30 tablet 04/06/18 Unknown Rx [ Complete Caplet] oxyCODONE /ACETAMINOPHEN [Percocet 1 - 2 tab PO Q4HR PRN #30 tablet 06/30/18 Unknown Rx 5/325 mg] Acetaminophen [Acetaminophen TAB] 650 mg PO Q4H PRN #15 tablet 07/11/18 Unknown Rx Nicotine [Habitrol] 14 mg TD QDAY #14 patch 07/11/18 Unknown Rx metroNIDAZOLE [Flagyl TAB] 500 mg PO TID #10 tablet 07/11/18 Unknown Rx Clindamycin [Clindamycin CAP] 300 mg PO Q8H #30 cap 10/30/18 Unknown Rx Ibuprofen [Motrin 600 MG tab] 600 mg PO Q8H PRN #30 tablet 11/23/18 Unknown Rx Ketorolac [Toradol] 10 mg PO Q8H PRN #20 tablet 12/12/18 Unknown Rx Ondansetron [Zofran Odt] 4 mg PO Q6HR PRN #15 tab.rapdis 12/12/18 Unknown Rx Sennosides/Docusate Sodium 1 each PO QHS #30 tablet 12/12/18 Unknown Rx [Docusate Sodium-Senna Tablet] traMADol [Ultram] 50 mg PO Q6HR PRN #15 tablet 12/12/18 Unknown Rx Allergies Allergy/AdvReac Type Severity Reaction Status Date / Time Sulfa (Sulfonamide Allergy Mild Rash Verified 11/22/18 10:53 Antibiotics) ED Review of Systems ROS: Stated complaint: ABD PAIN Other details as noted in HPI Comment: All other systems reviewed and negative Constitutional: denies: chills, fever Eyes: denies: eye pain, eye discharge, vision change ENT: denies: ear pain, throat pain Respiratory: denies: cough, shortness of breath, wheezing Cardiovascular: denies: chest pain, palpitations Endocrine: no symptoms reported Gastrointestinal: abdominal pain (diffuse lower), nausea. denies: diarrhea Genitourinary: denies: urgency, dysuria, discharge Musculoskeletal: denies: back pain, joint swelling, arthralgia Skin: denies: rash, lesions Neurological: denies: headache, weakness, paresthesias Psychiatric: denies: anxiety, depression Hematological/Lymphatic: denies: easy bleeding, easy bruising ED Past Medical Hx - Past Medical History Previous Medical History?: Yes Hx Hypertension: No Hx Heart Attack/AMI: No Hx Congestive Heart Failure: No Hx Diabetes: No Hx Deep Vein Thrombosis: No Hx Liver Disease: No Hx Renal Disease: No Hx Sickle Cell Disease: No Hx Seizures: No Hx Asthma: No Hx COPD: No Hx HIV: No Additional medical history: Preclampsia. - Surgical History Past Surgical History?: Yes Hx Pacemaker: No Hx Internal Defibrillator: No Additional Surgical History: - Social History Smoking Status: Never Smoker Substance Use Type: None - Medications Home Medications: Home Medications Medication Instructions Recorded Confirmed Last Taken Type 21/Iron Fu/Folic Acid 1 each PO DAILY #30 tablet 04/06/18 07/18/18 Unknown Rx [ Complete Caplet] oxyCODONE /ACETAMINOPHEN [Percocet 1 - 2 tab PO Q4HR PRN #30 tablet 06/30/18 07/18/18 Unknown Rx 5/325 mg] Acetaminophen [Acetaminophen TAB] 650 mg PO Q4H PRN #15 tablet 07/11/18 07/18/18 Unknown Rx Nicotine [Habitrol] 14 mg TD QDAY #14 patch 07/11/18 07/18/18 Unknown Rx metroNIDAZOLE [Flagyl TAB] 500 mg PO TID #10 tablet 07/11/18 07/18/18 Unknown Rx Clindamycin [Clindamycin CAP] 300 mg PO Q8H #30 cap 10/30/18 Unknown Rx Ibuprofen [Motrin 600 MG tab] 600 mg PO Q8H PRN #30 tablet 11/23/18 Unknown Rx Ketorolac [Toradol] 10 mg PO Q8H PRN #20 tablet 12/12/18 Unknown Rx Ondansetron [Zofran Odt] 4 mg PO Q6HR PRN #15 tab.rapdis 12/12/18 Unknown Rx Sennosides/Docusate Sodium 1 each PO QHS #30 tablet 12/12/18 Unknown Rx [Docusate Sodium-Senna Tablet] traMADol [Ultram] 50 mg PO Q6HR PRN #15 tablet 12/12/18 Unknown Rx ED Physical Exam - General Limitations: No Limitations General appearance: alert, in no apparent distress - Head Head exam: Present: atraumatic, normocephalic, normal inspection - Eye Eye exam: Present: normal appearance, PERRL, EOMI. Absent: conjunctival injection, nystagmus, periorbital swelling, periorbital tenderness Pupils: Present: normal accommodation. Absent: unequal - ENT ENT exam: Present: normal exam, normal orophraynx, mucous membranes moist, TM's normal bilaterally, normal external ear exam - Neck Neck exam: Present: normal inspection, full ROM. Absent: tenderness - Respiratory Respiratory exam: Present: normal lung sounds bilaterally. Absent: respiratory distress, wheezes, rhonchi, stridor, chest wall tenderness, accessory muscle use - Cardiovascular Cardiovascular Exam: Present: regular rate, normal rhythm, normal heart sounds. Absent: systolic murmur, diastolic murmur, rubs, gallop - GI/Abdominal GI/Abdominal exam: Present: soft, tenderness (Palpable diffuse lower abdominal tenderness, no guarding or rebound), normal bowel sounds. Absent: hyperactive bowel sounds, hypoactive bowel sounds, organomegaly, mass - Rectal Rectal exam: Present: deferred - Extremities Exam Extremities exam: Present: normal inspection, full ROM, normal capillary refill - Back Exam Back exam: Present: normal inspection, full ROM. Absent: tenderness, CVA tenderness (R), CVA tenderness (L), muscle spasm, paraspinal tenderness - Neurological Exam Neurological exam: Present: alert, oriented X3, CN II-XII intact, normal gait, reflexes normal - Psychiatric Psychiatric exam: Present: normal affect, normal mood - Skin Skin exam: Present: warm, dry, intact, normal color. Absent: rash ED Course Vital Signs 12/12/18 01:47 Temperature 98.5 F Pulse Rate 72 Respiratory 14 Rate Blood Pressure 139/85 O2 Sat by Pulse 100 Oximetry - Reevaluation(s) Reevaluation #1: 12/12/18 04:50 This is a 18-year-old female who presented to ED with diffuse lower abdominal pain with nausea for one week. In the ED, patient is alert and oriented 3 and is not imminent distress with normal vital signs. Lab test results were reviewed and are unremarkable including urinalysis. Abdominal pelvic CT scan with contrast was ordered and it showed a 3.8 cm right ovarian cyst with adjacent free fluid. Left ovary is unremarkable with no uterine mass is seen. There may be slight thickening of a few distal small bowel loops could not exclude mild enteritis. No bowel obstruction or hernia. Colon contains large amount of stool suggesting constipation. Appears to be the appendix is normal. Patient was treated for pain in the ED and on reevaluation, patient's pain is w ell controlled, patient sleeping comfortably in the room in no acute distress. Patient discharged home on medications including pain medication, antiemetics and stool softeners and advised to follow-up with [facility] physician in 3-5 days for reevaluation. Patient was also advised to return to the ED immediately if symptoms get worse. ED Medical Decision Making - Lab Data Result diagrams: 12/12/18 02:12 12/12/18 02:12 - Radiology Data Radiology results: report reviewed, image reviewed Findings [facility] [address] [place] [address] Cat Scan Report Signed Patient: RASHID QUEZADA MR#: [id number] : 1990 Acct:[id number] Age/Sex: 28 / F ADM Date: 12/12/18 Loc: ED Attending Dr: Ordering Physician: JULIETA WORRELL Date of Service: 12/12/18 Procedure(s): CT abdomen pelvis w con Accession Number(s): [id number] cc: JULIETA WORRELL CT of the abdomen and pelvis with contrast INDICATION: Lower abdominal pain and nausea COMPARISON: None FINDINGS: Lung bases are clear. The liver, spleen, pancreas, adrenal glands and kidneys all appear normal. No definite gallbladder or biliary tree abnormality. No fluid or adenopathy in the upper abdomen. CT of the pelvis shows 3.8 cm right ovarian cyst with adjacent free fluid. Left ovary is unremarkable with no uterine mass is seen. There may be slight thickening of a few distal small bowel loops could not exclude mild enteritis. No bowel obstruction or hernia. Colon contains large amount of stool suggesting constipation. Appears to be the appendix is normal. IMPRESSION: 1. Right ovarian cyst with free fluid. 2. Possible mild enteritis. 3. Constipation. Automated exposure control was utilized to diminish radiation dose. Signer Name: Bairon Plaza MD Signed: 12/12/2018 4:35 AM Workstation Name: [id number] Transcribed By: JANINA Dictated By: Bairon Plaza MD Electronically Authenticated By: Bairon Plaza MD Signed Date/Time: 12/12/18 0825 - Medical Decision Making This is a 18-year-old female who presented to ED with diffuse lower abdominal pain with nausea for one week. In the ED, patient is alert and oriented 3 and is not imminent distress with normal vital signs. Lab test results were reviewed and are unremarkable including urinalysis. Abdominal pelvic CT scan with contrast was ordered and it showed a 3.8 cm right ovarian cyst with adjacent free fluid. Left ovary is unremarkable with no uterine mass is seen. There may be slight thickening of a few distal small bowel loops could not exclude mild enteritis. No bowel obstruction or hernia. Colon contains large amount of stool suggesting constipation. Appears to be the appendix is normal. Patient was treated for pain in the ED and on reevaluation, patient's pain is well controlled, patient sleeping comfortably in the room in no acute distress. Patient discharged home on medications including pain medication, antiemetics and stool softeners and advised to follow-up with [facility] physician in 3-5 days for reevaluation. Patient was also advised to return to the ED immediately if symptoms get worse. - Differential Diagnosis Abdominal pain, acute appendicitis, ovarian cyst, Acute PID, Colitis Critical care attestation.: If time is entered above; I have spent that time in minutes in the direct care of this critically ill patient, excluding procedure time. ED Disposition Clinical Impression: Right ovarian cyst Abdominal pain Qualifiers: Abdominal location: lower abdomen, unspecified Qualified Code(s): R10.30 - Lower abdominal pain, unspecified Constipation Qualifiers: Constipation type: other constipation type Qualified Code(s): K59.09 - Other constipation Disposition: TO HOME OR SELFCARE Is pt being admited?: No Does the pt Need Aspirin: No Condition: Stable Instructions: Abdominal Pain (ED), Constipation (ED), Ovarian Cyst (ED) Additional Instructions: Take medications with food, drink plenty of fluids and follow-up with your [facility] physician in 3-5 days for reevaluation. Return to the ED immediately if symptoms get worse. Prescriptions: Sennosides/Docusate Sodium [Docusate Sodium-Senna Tablet] 1 each PO QHS #30 tablet Ketorolac [Toradol] 10 mg PO Q8H PRN #20 tablet PRN Reason: Pain traMADol [Ultram] 50 mg PO Q6HR PRN #15 tablet PRN Reason: Pain Ondansetron [Zofran Odt] 4 mg PO Q6HR PRN #15 tab.rapdis PRN Reason: Nausea Referrals: JASON DIEGO MD [Primary Care Provider] - 3-5 Days Time of Disposition: 05:03 Print Language: WELSH
[2018-12-12 05:26] VITALS: BP 122/76
== END 2018-12-12 05:27 | disposition home or self-care (01) ==
LOC: ED 01:40
DX: N83.201 Unspecified ovarian cyst, right side (principal); K59.00 Constipation, unspecified; Z79.899 Other long term (current) drug therapy; Z88.2 Allergy status to sulfonamides
CPT/HCPCS: 36415; 74177; 80053; 81001; 84703; 85025; 96374; 96375; 99284; J1885; J2405; Q9967